=== PATIENT | male | born 1960 | race Caucasian/White ===

== ENCOUNTER 2020-05-26 11:41 | Outpatient (REF) | payer MEDICAID, SELFPAY ==
[2020-05-26 20:50] LABS: Abs Immature Grans 0.01 k/cumm (0.0-0.09); Absolute Basophil Count 0.04 k/cumm (0.0-0.2); Absolute Eosinophil Count 0.18 k/cumm (0.0-0.7); Absolute Lymphocyte Count 2.02 k/cumm (1.2-3.4); Absolute Monocyte Count 0.43 k/cumm (0.11-0.7); Absolute Neutrophil Count 3.19 k/cumm (1.2-6.7); Basophils % 0.7; Eosinophils % 3.1; HCT 45.4 % (40.0-50.0); Immature Grans % 0.2 %; Lymphocytes % 34.4; Mean Corp. HGB Concentration 35.2 g/dL (32.0-36.0); Mean Corpuscular Hemoglobin 31.5 pg (27.0-33.0); Mean Corpuscular Volume 89.4 fL (80-95); Mean Platelet Volume 10.4 fL (8.0-11.0); Monocytes % 7.3; Neutrophils % 54.3; Platelet Count 291 x1000/uL (130-400); RBC 5.08 m/cumm (4.50-6.00); RBC Distribution Width 12.6 % (11.8-14.1); White Blood Cell Count 5.87 k/cumm (4.4-10.8)
[2020-05-26 21:19] LABS: ALT 21 U/L (16-63); AST 14 U/L (15-37); Alkaline Phosphatase 86 U/L (46-116); Anion Gap 8.2 mmol/L (3-11); BUN 15 mg/dL (7-18); Bilirubin, Total 0.6 mg/dL (0.2-1.0); C-Reactive Protein 0.08 mg/dL (0.0-0.3); CO2 27.8 mmol/L (21.0-32.0); CREATININE 1.26 mg/dL (0.70-1.30); Calcium 8.9 mg/dL (8.5-10.1); Chloride 101 mmol/L (98-107); Creatine Kinase 53 U/L (39-308); Estimated GFR 58.38 (mL/min/1.73m2); Glucose 103 mg/dL (74-106); Potassium 3.8 mmol/L (3.5-5.1); Sodium 137 mmol/L (136-145); TSH 1.04 uIU/mL (0.36-3.74); Total Protein 7.1 g/dL (6.4-8.2)
[2020-05-26 21:36] LABS: ESR 5 mm/hr (1-20)
[2020-05-30 12:42] LABS: Lyme Ab w Rflx to Lyme Confirm Negative (Negative)
[2020-05-30 16:46] LABS: ANA Interpretation Negative (Negative)
[2020-05-31 03:13] LABS: Anaplasma phagocytophilum Negative (Negative); B. miyamotoi PCR Negative (Negative); Babesia divergens/MO-1 Negative (Negative); Babesia duncani Negative (Negative); Babesia microti Negative (Negative); Ehrlichia chaffeensis Negative (Negative); Ehrlichia ewingii/canis Negative (Negative); Ehrlichia muris eauclairensis Negative (Negative)
== END 2020-05-26 12:01 ==
LOC: NCHCN 11:41
PROVIDERS: PCP Internal Medicine; Visit Provider Internal Medicine
DX: M54.2 Cervicalgia (principal); A68.9 Relapsing fever, unspecified
CPT/HCPCS: 80053; 82550; 85652; 87798; 84443; 85025; 86038; 86140; 86618

== ENCOUNTER 2020-06-09 01:06 | Outpatient (RCR) | payer MEDICAID, SELFPAY ==
[2020-06-09] MEDS: Cosyntropin 0.25 MG VIAL IJ (07:17)
[2020-06-09 07:20] VITALS: BP 122/73; PULSE 54; RESP 20; TEMP 35.4; O2SAT 100
[2020-06-09] MEDS: Normal Saline Flush 10 ML SYR IVP (07:48)
== END 2020-07-01 23:59 | disposition home or self-care (01) ==
LOC: INF 01:06
PROVIDERS: PCP Internal Medicine; Visit Provider Internal Medicine
DX: R53.83 Other fatigue (principal)
CPT/HCPCS: 82533; 96374; 93005; 93010; J0834

== ENCOUNTER 2020-06-09 07:40 | Emergency (ER) | payer MEDICAID, SELFPAY ==
--- NOTE | 2020-06-09 07:30 | RT.EKG_ITS ---
APPROVED REPORT Exam: Resting ECG Patient Location: E HR:53 bpm ECG Measurements Heart Rate 53 AXIS WI 200 P 81 QRSd 103 QRS 78 QT 482 T 60 QTc 453 <Conclusion> Gender not entered, assumed to be male for purpose of ECG interpretation Sinus bradycardia...rate< 60. No acute ST elevation or depression.
[2020-06-09 07:45] VITALS: BP 142/80; PULSE 51; RESP 18; TEMP 36; O2SAT 100
[2020-06-09 07:50] VITALS: RESP 18
--- NOTE | 2020-06-09 08:00 | RT.EKG_ITS ---
APPROVED REPORT Exam: Resting ECG Patient Location: E HR:51 bpm ECG Measurements Heart Rate 51 AXIS MO 197 P 79 QRSd 97 QRS 81 QT 476 T 59 QTc 439 <Conclusion> Sinus bradycardia...rate< [address] elevation, lateral leads...ST >0.06mV, I aVL V5 V6. Appears c/w early repolarization in lateral leads. No significant acute change from previous.
--- NOTE | 2020-06-09 08:26 | W.ED.GENAD ---
Discharge Plan Disposition Patient Disposition: HOME Condition: Stable Discharge Details Chief Complaint: AMS/LOC Clinical Impression: Vasovagal episode Primary Care Provider: Markus Ascencio ED Provider: Brett Engle Home Meds and New Rx's Prescriptions: Continued diclofenac potassium 50 mg tablet 50 mg PO BID PRNRF: 0 triamcinolone acetonide 0.1 % cream 1 applic TP BID PRNRF: 0 epinephrine [EpiPen 2-Fred] 0.3 mg/0.3 mL auto-injector 0.3 mg IM ONCE RF: 0 valacyclovir [Valtrex] 500 mg tablet 1,000 mg PO BID PRNRF: 0 aspirin 325 MG tablet 325 mg PO PRN PRNRF: 0 clonazepam 1 MG tablet 1 mg PO PRN PRNRF: 0 vitamin B complex 1 EACH capsule 1 tab PO DAILY RF: 0 Discharge Instructions Instructions: Syncope (ED) Additional Instructions: At this time your symptoms are most likely secondary to a vasovagal episode. As we discussed full laboratory values, at baseline and 3-hour later or offered but at this time declined which I believe to be perfectly reasonable. After my conversation with Dr. Ascencio and then discussing options with you, CT of neck and head obtained here in the ER and both unremarkable. This note will be sent forward to Dr. Ascencio so that you may contact his office in the next 24-48 hours for prompt outpatient reevaluation. Please watch for new or worsening symptoms and return to the ER for any concerns. Medical Decision Making This is a 60-year-old gentleman who presents from the infusion clinic after having what he describes as a vasovagal episode. He reports many similar episodes, is currently asymptomatic. EKG obtained upon arrival, interpreted and reviewed with Dr. Joshi. This occurred at 802, sinus bradycardia, rate of 51. Early repolarization. Please see her note. Patient appears well, nontoxic and is neurologically intact. At this time we discussed our options and he would prefer not to have a full work-up here in the ER including troponin and repeat EKG and troponin III hours later. He believes this was a vasovagal response and believes that discharge is safe. Given his previous response with vasovagal episodes and being asymptomatic now I do believe this to be reasonable. I received a call from Dr. Ascencio stating that if we were going to further work-up the patient here in the ER he has been trying to get an outpatient soft tissue neck CT and if we can get that through the ER setting that would certainly help expedite the process. Discussed this conversation with patient. Although he does not want any laboratory values done at this time he is willing to have the CT. In the setting of vasovagal response, potential syncope, I believe head CT without contrast is reasonable and we will add on a neck CT with contrast after my discussion with Dr. Ascencio. Repeat EKG performed at [facility] reviewed and interpreted with Dr. Joshi. Sinus rhythm, ventricular of 64. No STEMI. Please see her interpretation. CT of head reveals no acute intracranial process. CT of neck with contrast reveals no acute abnormality. I will have my note sent forward to Dr. Ascencio. I discussed the CT findings with patient. He remains asymptomatic and is comfortable discharge. He will be in contact with Dr. Ascencio's office in the next 24-48 hours for prompt outpatient reevaluation, otherwise return to the ER for new or worsening symptoms. Upon discharge he is ambulating steadily, using iPad without difficulty, and remains asymptomatic. Of note, he did have his outpatient post cortisol lab draw completed here in the ER that will be followed as an outpatient. Medical Records Medical records reviewed: Yes I reviewed the patient's medical records. HPI General Date/Time Provider Initiated Documentation: 06/09/20 08:01. Limitations to Documentation: no limitations. Information obtained by: patient. HPI Narrative: This is a 60-year-old gentleman who is presenting from the infusion clinic after he describes as a vasovagal episode. He has a history of cardiomyopathy, syncope, neck pain, who was in the process of being worked up through his primary care provider. Today he was going to the infusion clinic to have an injection of cortisol, baseline labs, and then labs 1 hour later. Patient reports that after the IV was inserted he had a brief vasovagal episode. He was already sitting down and did not fall or have any injury. He reports upon waking he felt slightly diaphoretic but was otherwise asymptomatic, now here in the ER he is completely asymptomatic. He reports that he has had vasovagal episodes his entire life including when he has his blood drawn, IV insertion, looking at x-rays, and having his cast cut off when he had a broken bone. He reports this feels exactly the same and at this time he has no additional concerns or complaints. He denies any headache, visual changes, chest pain, shortness of breath abdominal pain, nausea, vomiting, numbness, tingling, weakness. He did not have any incontinence with this episode. Patient does report baseline neck pain that he is in the process of being worked up by his primary care provider. Patient denies any symptoms prior to his episode today. Related Data Home Medications Medication Instructions Recorded Confirmed aspirin 325 mg PO PRN PRN 03/24/17 06/09/20 clonazepam 1 mg PO PRN PRN 03/24/17 06/09/20 vitamin B complex 1 tab PO DAILY 03/24/17 06/09/20 diclofenac potassium 50 mg tablet 50 mg PO BID PRN 06/08/20 06/09/20 epinephrine 0.3 mg/0.3 mL 0.3 mg IM ONCE 06/08/20 06/09/20 injection, auto-injector triamcinolone acetonide 0.1 % 1 applic TP BID PRN 06/08/20 06/09/20 topical cream valacyclovir 500 mg tablet 1,000 mg PO BID PRN tab 06/08/20 06/09/20 Allergies Allergy/AdvReac Type Severity Reaction Status Date / Time latex AdvReac Unverified 06/09/20 07:52 General Stated Complaint: AMS/LOC GERMAN: 3 Review of Systems Constitutional Constitutional: Denies fatigue, Denies fever(s), Denies headache(s) and Denies weakness Eyes Eyes: Denies change in vision ENT Ears, Nose, Mouth, and Throat: Denies headache(s) and Reports neck pain Cardiovascular Cardiovascular: Denies chest pain and Denies dyspnea Respiratory Respiratory: Denies cough and Denies dyspnea Gastrointestinal Gastrointestinal: Denies abdominal pain, Denies nausea and Denies vomiting Musculoskeletal Musculoskeletal: Denies back pain, Denies arthralgias, Reports neck pain, Denies numbness and Denies tingling Integumentary/Breasts Skin/Breast: Denies rash Neurologic Neurologic: Denies headache(s), Denies numbness, Denies tingling and Denies weakness Endocrine Endocrine: Denies fatigue [facility] Medical History Actinic keratosis (Acute) Bipolar 2 disorder (Acute) Cardiomyopathy (Acute) Elevated blood pressure reading (Acute) Fatigue (Acute) Fever (Acute) Hallux rigidus (Acute) History of alcoholic hepatitis (Acute) Hx of syncope (Acute) Hyperlipidemia (Acute) Insomnia (Acute) Mitral valve regurgitation (Chronic) Myalgia (Acute) Neck pain, acute (Acute) Osteoarthritis (Chronic) Osteoarthritis of left knee (Acute) Osteoarthritis of left thumb (Acute) Osteoarthritis of right thumb (Acute) Preventative health care (Acute) Primary HSV infection of mouth (Acute) Surgical History S/P Maze operation for atrial fibrillation (Acute) Social History Smoking/Tobacco Use Status: Never Alcohol Intake: never Drug use: Never Substance use type: does not use Do you feel safe at home: Yes Do you feel safe in your relationship?: Yes Exam Const General: cooperative, healthy appearing, comfortable and no acute distress Orientation: alert, awake and oriented x3 HENMT Head: normal to inspection, normocephalic and atraumatic General nose exam: external nose normal Face and sinus: normal facial exam Mouth: oral mucosae normal and moist mucous membranes Throat: posterior oropharynx normal Eyes General: appearance normal, both eyes and all related structures Conjunctivae: conjunctivae normal Sclera: sclerae normal EOM: EOM intact bilaterally Neck Neck: normal visual inspection, full ROM, no lymphadenopathy, no meningeal signs, trachea midline, supple and tender (Diffuse mild left lateral discomfort) Resp Effort & Inspection: normal respiratory effort and able to speak in complete sentences Auscultation: clear to auscultation bilaterally Cardio Rate: regular rate Rhythm: regular rhythm GI Palpation: soft, not firm, no guarding, not rigid and nontender Auscultation: normal bowel sounds Back/Spine/Pelvis Back: No back tenderness Skin General skin exam: no rashes or lesions noted Neuro General: patient alert, patient awake, patient oriented x3, moves all extremities and no focal motor deficits Cranial Nerves: CN's II-XI intact bilaterally Cognition: normal cognition Speech: speech normal Gait: normal gait Motor: muscle tone normal throughout and strength 5/5 throughout Sensory Exam: no sensory deficits noted Extrem General: normal to inspection, full ROM, capillary refill normal, no pedal edema and no calf tenderness Psych Appearance: grossly normal Mental Status: mental status grossly normal Course Vital Signs Vital signs: Vital Signs Temperature 36 C L 06/09/20 07:45 Pulse 51 L 06/09/20 07:45 Respiratory Rate 18 06/09/20 07:45 Blood Pressure 142/80 H 06/09/20 07:45 Pulse Oximetry 100 06/09/20 07:45 Temperature 36 C L 06/09/20 07:45 Temperature Source Temporal Artery Scan 06/09/20 07:45 Pulse 51 L 06/09/20 07:45 Respiratory Rate 18 06/09/20 07:50 Respiratory Effort Non-Labored 06/09/20 07:50 Respiratory Depth Normal 06/09/20 07:50 Respiratory Pattern Normal 06/09/20 07:50 Blood Pressure 142/80 H 06/09/20 07:45 Blood Pressure Position Supine 06/09/20 07:45 Pulse Oximetry 100 06/09/20 07:45 Oxygen Delivery Method Room Air 06/09/20 07:45 Oxygen Flow Rate 0 06/09/20 07:45 Pain Level 0 06/09/20 07:45
--- NOTE | 2020-06-09 09:40 | DI.CT_ITS ---
EXAM: CT HEAD WO CLINICAL HISTORY: syncope, left sided pain/swelling. TECHNIQUE: Imaging Protocol: Axial computed tomography images with coronal and sagittal reformatted images were created and reviewed COMPARISON: No exams were available for comparison FINDINGS: Ventricles and Extra axial spaces: Normal in size and morphology for the patient's age. Hemorrhage: None. Cerebral parenchyma: Normal. Midline shift: None. Brainstem/Cerebellum: Normal. Calvarium: Normal. Visualized Paranasal sinuses/Mastoids: Clear. Soft Tissues: Unremarkable. IMPRESSION: No acute intracranial process. RADIATION DOSE DELIVERED: Total DLP DATA REPOSITORY: All CT scans at this facility are submitted to the National Radiology Data Registry (NRDR) Dose Index Registry (DIR) with the [employer] ([employer]). RADIATION OPTIMIZATION: All CT scans at this facility use at least one of these dose optimization te chniques: automated exposure control; mA and/or kV adjustment per patient size (includes targeted exa ms where dose is matched to clinical indication); or iterative reconstruction.
--- NOTE | 2020-06-09 09:52 | DI.CT_ITS ---
EXAM: CT NECK W CLINICAL HISTORY: pain, L sided swelling. TECHNIQUE: Imaging Protocol: Axial computed tomography images with coronal and sagittal reformatted images were created and reviewed CONTRAST MATERIAL: Intravenous: Omnipaque 350 Contrast volume:100 ml Contrast route:IV - COMPARISON: No exams were available for comparison FINDINGS: Parotids/submandibular/thyroid gland: Normal. Lymphadenopathy: No enlarged lymph nodes. Carotids/Jugular: There is mild calcific plaque seen at the left common carotid bulb. There is no v isible stenosis. Soft tissues: There is no evidence abscess or fluid collection. The floor the mouth is unremarkable. The epiglottis and vocal cords are within normal limits. Images through both lung apices are unremar kable. IMPRESSION: No acute abnormality. RADIATION DOSE DELIVERED: Total DLP DATA REPOSITORY: All CT scans at this facility are submitted to the National Radiology Data Registry (NRDR) Dose Index Registry (DIR) with the [employer] ([employer]). RADIATION OPTIMIZATION: All CT scans at this facility use at least one of these dose optimization te chniques: automated exposure control; mA and/or kV adjustment per patient size (includes targeted exa ms where dose is matched to clinical indication); or iterative reconstruction.
--- NOTE | 2020-06-09 10:00 | RT.EKG_ITS ---
APPROVED REPORT Exam: Resting ECG Patient Location: E HR:64 bpm ECG Measurements Heart Rate 64 AXIS AL 177 P 80 QRSd 97 QRS 84 QT 455 T 47 QTc 470 <Conclusion> Sinus rhythm...normal P axis, V-rate 60- 99 Probable left atrial enlargement...P >50mS, <-0.10mV V1 No acute ST ischemic changes.
[2020-06-09] MEDS: Omnipaque 350 MG/ML 100 ML BTL IV (10:08)
== END 2020-06-09 11:19 | disposition home or self-care (01) ==
PROVIDERS: Emergency Provider Physician Assistant; PCP Internal Medicine
DX: R55 Syncope and collapse (principal)
CPT/HCPCS: 70491; 87206; 93005; 99285; 70450; 93010; 99284; J3490

== ENCOUNTER 2020-07-04 00:39 | Outpatient (CLI) | payer MEDICAID, SELFPAY ==
--- NOTE | 2020-07-04 08:00 | ETT_ITS ---
APPROVED REPORT Exam: Exercise Treadmill Patient Location: Out-Patient Room/Bed: Stress Nurse: Naa Dietz RN BMI: 23.73 Baseline Rhythm: Sinus Rhythm Indications: Fatigue. History of cardiomyopathy. Medical History Medical History: Atrial Fibrillation, Cardiomyopathy, Hyperlipidemia, Mitral regurgitation Cardiac Medications: none Allergies: Latex Cardiac Risk Factors: Hyperlipidemia. Cardiomyopathy. Elevated blood pressure. Previous Cardiac Procedures: Cardioversion. Ablation. Exercise History: Physically active Lung Sounds: Clear to auscultation Heart Sounds: Regular Stress Test Details Test: Exercise stress testing was performed using a Jesús protocol. Rest Stress HR Resting HR Supine: 81 bpm Max Heart Rate (APMHR): 160 bpm Resting HR Standin bpm Target HR (85% APMHR): 136 bpm Max HR Achieved: 176 bpm % of APMHR: 110 Recovery HR: 90 bpm HR response to stress: Normal HR response to stress BP Resting BP Supine: 142/72 mmHg Resting BP Standin/76 mmHg Max BP: 188/62 mmHg Recovery BP: 148/68 mmHg BP response to stress: Normal blood pressure response to stress. ECG Resting ECG: Sinus Rhythm Stress ECG: Sinus Tachycardia ST Change: No significant ST segment changes Arrhythmia: rare PVC Recovery ECG: Sinus Rhythm Recovery ST Change: No significant ST segment changes Recovery Arrhythmia: None Clinical Reason for Termination: Fatigue, Target HR Achieved Stress Symptoms: General Fatigue Exercise duration: 13 min00 sec Highest Stage Reached: Stage 5: 5.0 mph at 18% grade. Exercise capacity: 14.15 METs Functional Capacity: Above average capacity Stress ECG Conclusion 1. The patient exercised for 13 minutes (14 METS) 2. Patient had no symptoms suggestive of ischemia. 3. The patient had no evidence of ischemia on the ECG portion of the exam. 4. The Gil Score ( 12) estimates an annual cardiovascular mortality of 0% and a five year survival o f 96%. Using the Gil Score there is a low probability of any angiographic coronary disease. Stress Test Summary STAGE Time (mins) Speed (mph) Grade (%) HR BP SYMPTOMS METS Supine 81 142/72 Standing 103 144/76 1 3 1.7 10 111 150/70 4.6 2 6 2.5 12 130 162/68 7 3 9 3.4 14 135 168/66 10.2 1 min recovery 145 188/62 3 min recovery 104 184/68 6 min recovery 96 156/70 9 min recovery 90 148/68
--- NOTE | 2020-08-05 09:23 | W.CARDEVENT ---
Date of service: 08/05/20 Time of Service: 09:23 Cardiac Event Recorder Referring Provider:: Jacobo Ascencio Indications:: Cardiomyopathy Cardiac Event Note: This is a 30-day event monitor reportedly ordered for diagnosis of cardiomyopathy. The patient was to be monitored from July 04 through August 02, 2020 Actual monitoring period was 5 days and 22 hours. There was no data after July 10 Predominant rhythm was sinus. Average heart rate was 69 bpm. Minimum heart rate was 53 and maximum 130 Rare PVCs were seen. There were no significant supraventricular dysrhythmias. There was no atrial fibrillation. There was no ventricular tachycardia there was no high-grade AV block
== END 2020-07-04 00:59 ==
PROVIDERS: PCP Internal Medicine; Visit Provider Internal Medicine
DX: R53.83 Other fatigue (principal); I48.91 Unspecified atrial fibrillation; I42.9 Cardiomyopathy, unspecified; E78.5 Hyperlipidemia, unspecified; I34.0 Nonrheumatic mitral (valve) insufficiency
CPT/HCPCS: 93270; 93017

== ENCOUNTER 2020-07-11 18:21 | Outpatient (REF) | payer MEDICAID, SELFPAY ==
[2020-07-11 21:03] LABS: Abs Immature Grans 0.01 10^3/uL (0.0-0.06); Absolute Basophil Count 0.09 10^3/uL (0.0-0.2); Absolute Lymphocyte Count 3.07 10^3/uL (1.2-3.4); Absolute Monocyte Count 0.61 10^3/uL (0.1-0.8); Absolute Neutrophil Count 3.97 10^3/uL (1.2-6.7); Basophils % 1.1; Eosinophils % 2.5; HCT 48.9 % (40.0-50.0); HGB 16.5 g/dL (13.5-17.5); Immature Grans % 0.1; Lymphocytes % 38.6; MCH 31.3 pg (27.0-33.0); MCHC 33.7 % (32.0-36.0); MCV 92.8 fL (80-95); MPV 10.2 fL (8.0-11.0); Monocytes % 7.7; Nucleated RBC 0 %; Platelet Count 344 10^3/uL (130-400); RBC 5.27 10^6/uL (4.36-5.78); RDW 12.9 % (11.8-14.1); WBC 7.95 10^3/uL (4.4-10.8)
[2020-07-11 21:15] LABS: ALT 22 U/L (16-63); AST 16 U/L (15-37); Albumin 4.1 g/dL (3.4-5.0); Alkaline Phosphatase 97 U/L (46-116); Anion Gap 7.5 mmol/L (3-11); BUN 12 mg/dL (7-18); Bilirubin, Total 0.7 mg/dL (0.2-1.0); CO2 29.5 mmol/L (21.0-32.0); CREATININE 0.99 mg/dL (0.70-1.30); Calcium 9.4 mg/dL (8.5-10.1); Chloride 101 mmol/L (98-107); Glucose 98 mg/dL (74-106); Potassium 4.7 mmol/L (3.5-5.1); Sodium 138 mmol/L (136-145); Total Protein 7.5 g/dL (6.4-8.2)
[2020-07-13 10:30] LABS: Lyme Ab w Rflx to Lyme Confirm Negative (Negative)
== END 2020-07-11 18:41 ==
LOC: NCHCN 18:21
PROVIDERS: PCP Internal Medicine; Visit Provider Internal Medicine
DX: R59.1 Generalized enlarged lymph nodes (principal); R53.83 Other fatigue; M79.10 Myalgia, unspecified site
CPT/HCPCS: 80053; 85025; 86618

== ENCOUNTER 2020-10-26 14:08 | Outpatient (REF) | payer MEDICAID, SELFPAY ==
[2020-10-26 21:42] LABS: Abs Immature Grans 0.03 10^3/uL (0.0-0.06); Absolute Basophil Count 0.07 10^3/uL (0.0-0.2); Absolute Eosinophil Count 0.16 10^3/uL (0.0-0.7); Absolute Lymphocyte Count 2.71 10^3/uL (1.2-3.4); Absolute Monocyte Count 0.64 10^3/uL (0.1-0.8); Absolute Neutrophil Count 5.33 10^3/uL (1.2-6.7); Basophils % 0.8; Eosinophils % 1.8; HCT 52.3 % (40.0-50.0); HGB 17.5 g/dL (13.5-17.5); Immature Grans % 0.3; Lymphocytes % 30.3; MCH 31.5 pg (27.0-33.0); MCHC 33.5 % (32.0-36.0); MCV 94.1 fL (80-95); MPV 10.2 fL (8.0-11.0); Monocytes % 7.2; Neutrophils % 59.6; Nucleated RBC 0 %; Platelet Count 366 10^3/uL (130-400); RBC 5.56 10^6/uL (4.36-5.78); RDW 12.5 % (11.8-14.1); RDW-SD 43.6 fL; WBC 8.94 10^3/uL (4.4-10.8)
[2020-10-26 21:48] LABS: C-Reactive Protein 0.09 mg/dL (0.0-0.3)
[2020-10-26 23:48] LABS: ESR 5 mm/hr (1-20)
== END 2020-10-26 14:28 ==
LOC: NCHCN 14:08
PROVIDERS: PCP Internal Medicine; Visit Provider Internal Medicine
DX: R51.9 Headache, unspecified (principal)
CPT/HCPCS: 85652; 85025; 86140

== ENCOUNTER 2021-11-05 07:24 | Emergency (ER) | payer MEDICAID, SELFPAY ==
--- NOTE | 2021-11-05 07:30 | RT.EKG_ITS ---
APPROVED REPORT Exam: Resting ECG Reason for Exam: syncope Patient Location: E HR:70 bpm ECG Measurements Heart Rate 70 AXIS AR 175 P 60 QRSd 86 QRS 77 QT 391 T 66 QTc 422 Conclusion Sinus rhythm...normal P axis, V-rate 60- 99 Anteroseptal infarct, age indeterminate...Q >35mS, T neg, V1-V2. Sinus. No STEMI. I have reviewed and interpreted ECG and agree with software generated interpretation.
[2021-11-05 07:32] VITALS: BP 152/80; PULSE 74; RESP 16; TEMP 37.6; O2SAT 99
--- NOTE | 2021-11-05 08:36 | W.ED.GENAD ---
Discharge Plan Disposition Patient Disposition: AGAINST MEDICAL ADVICE Condition: Stable Discharge Details Clinical Impression: Right knee pain, Episode of syncope Primary Care Provider: Markus Ascencio ED Provider: Milla Joshi Home Meds and New Rx's Prescriptions: Continued melatonin 3 mg tablet 3 mg PO HS PRNRF: 0 diclofenac potassium 50 mg tablet 50 mg PO BID PRNRF: 0 triamcinolone acetonide 0.1 % cream 1 applic TP BID PRNRF: 0 valacyclovir [Valtrex] 500 mg tablet 1,000 mg PO BID PRNRF: 0 clonazepam 1 MG tablet 1 mg PO PRN PRNRF: 0 vitamin B complex 1 EACH capsule 1 tab PO DAILY RF: 0 acetaminophen 500 mg Tablet 1,000 mg PO QID PRNRF: 0 Discharge Instructions Instructions: Syncope (ED), Knee Pain (ED) Additional Instructions: You are leaving the hospital AGAINST MEDICAL ADVICE. Based on your fainting episode, it is recommended that we obtain lab work and imaging of your head to rule out any significant abnormal findings. Drink plenty of fluids and get plenty of rest. It is recommended that you rest, ice, and elevate your right knee as much as possible. You can try an [id number] Avila wrap or knee brace to help with swelling. Alternate tylenol and motrin as needed and directed for pain. Follow-up with your primary care doctor in 1 week and for referral to orthopedics for further evaluation if your knee pain persists or worsens despite treatment. Return to the emergency department with any worsening or new concerning symptoms. Referrals: Elias Miguel MD [ [facility] STAFF PHYSICIAN] - Discharge Data Discharge Physician: Milla Joshi Medical Decision Making 61-year-old male with a history of bipolar disorder, hyperlipidemia and history of vasovagal syncope presents for syncopal episode while getting out of the bath 2 days ago now with right knee pain since yesterday. He is also complaining of pain and weakness all over. He also admits to a head injury a few days ago when hit his head on a tractor. Blood pressure mildly hypertensive at 152/80. EKG notes a rate of 70, sinus, no STEMI and nondiagnostic. He appears anxious. He has a right suprapatellar knee effusion and pain with range of motion. He is otherwise neurovascularly intact without orthopedic deformity. He has no focal deficits. Discussed with patient at length that it is suspected his syncopal episode 2 days ago is likely related to orthostatic hypotension in setting of hot bath worsened upon standing. Suspect he may have twisted his knee during the syncopal episode. Recommended that we place an IV, give bolus IV fluids, obtain screening labs to rule out anemia, CT head to rule out intracranial injury status post recent head injury, right knee x-ray and give a dose of tylenol, valium and decadron now and toradol for pain if CT head negative. After my discussion regarding plan for work-up, patient shook his head and said You and your non sequiturs and You are not getting it. I do not know why I came here, you have no idea what you are doing and The neurologists at [facility] don't know what they're doing either. I discussed that based on his recent syncopal episode and our goal in the emergency department to rule out the most concerning life-threatening conditions, it is recommended that we obtain lab work and potentially CT head imaging due to his recent head injury. Patient stated he mainly wanted his pain treated. I discussed that that was part of my treatment plan but he then declined pain medication. He stated Don't patronize me and I will go to another hospital and You did your job, congratulations. Pt was also asked to place his mask back on twice and stated twice but I'm vaccinated. Despite our efforts, the patient has decided to leave against medical advice. He has a normal mental status and full decisional capacity. The patient understands his condition and the risks of leaving MAY, including BUT NOT LIMITED TO permanent disability, , etc., and has had an opportunity to ask questions about his medical condition. The patient has been informed that he may return for care at any time, and has been referred to his local medical physician for follow up GUMARO. Patient was offered pain medication again prior to his leaving but he declined again. Upon leaving, pt's stated to the nurse mar about how pigheaded my is and tell the doctor thank you for trying to treat him. Medical Records Medical records reviewed: Yes I reviewed the patient's medical records. HPI General Mode of arrival: ambulatory. Date/Time Provider Initiated Documentation: 11/05/21 07:35. Limitations to Documentation: no limitations. Information obtained by: patient. HPI Narrative: Patient is a 51-year-old male with a history of bipolar disorder, hyperlipidemia, previous history of alcoholic hepatitis, and previous history of vasovagal syncopal episodes presents for a report of a syncopal episode 2 days ago while getting out of a hot bath now with right knee pain since yesterday. Patient states he was in a hot bath 2 days ago when he was stepping out and felt dizzy and passed out. He states he does not think he hit his head but for the next hour had dizziness, sweating, feeling of palpitations which then resolved with rest. He denies any chest pain or shortness of breath during this episode. He states since yesterday he has had right-sided knee pain which radiates to his right thigh. He denies any specific right hip pain. He states he is unsure if he hit his knee. He has clonazepam that he takes as needed for anxiety and took 2 doses overnight without relief. Patient also states that he feels that he has pain all over and feels there is something wrong neurologically. Patient states he has chronic neck pain and occasional headache for which he is followed by [facility] neurology with a diagnosis of suboccipital neuralgia. He states he hit his head on a tractor a few days ago sustaining an abrasion to the top of his head but denies any specific headache since then. Patient denies any recent illness, fever, vomiting, diarrhea, abdominal pain or urinary symptoms and states he has been eating and drinking normally. He denies any recent alcohol or drug use. Related Data Home Medications Medication Instructions Recorded Confirmed clonazepam 1 mg PO PRN PRN 03/24/17 11/05/21 vitamin B complex 1 tab PO DAILY 03/24/17 11/05/21 diclofenac potassium 50 mg tablet 50 mg PO BID PRN 06/08/20 11/05/21 triamcinolone acetonide 0.1 % 1 applic TP BID PRN 06/08/20 11/05/21 topical cream valacyclovir 500 mg tablet 1,000 mg PO BID PRN tab 06/08/20 11/05/21 melatonin 3 mg tablet 3 mg PO HS PRN 06/20/20 11/05/21 acetaminophen 1,000 mg PO QID PRN 11/05/21 11/05/21 Allergies Allergy/AdvReac Type Severity Reaction Status Date / Time latex AdvReac Unverified 11/05/21 07:36 General Stated Complaint: GenMedical GERMAN: 3 Review of Systems All systems reviewed & are unremarkable except as noted in HPI and below Constitutional Constitutional: Reports as per HPI, Denies chills, Denies fever(s) and Reports weakness Comments: pain all over Eyes Eyes: Denies blurry vision ENT Ears, Nose, Mouth, and Throat: Denies dizziness, Denies sore throat and Denies throat swelling Cardiovascular Cardiovascular: Denies chest pain and Denies dyspnea Respiratory Respiratory: Denies cough and Denies dyspnea Gastrointestinal Gastrointestinal: Denies abdominal pain, Denies diarrhea and Denies vomiting Genitourinary Genitourinary: Denies hematuria and Denies dysuria Musculoskeletal Musculoskeletal: Denies back pain and Denies numbness Comments: Right thigh and knee pain Integumentary/Breasts Skin/Breast: Denies lesions and Denies rash Neurologic Neurologic: Denies dizziness, Denies localized weakness, Denies numbness and Reports weakness Allergic/Immunologic Allergic/Immunologic: Denies throat swelling PFS Active Problem List (Updated 11/05/21 @ 08:38 by Milla Joshi DO) Right knee pain (Acute) Episode of syncope (Chronic) Neck pain (Acute) Fatigue (Acute) Syncope (Chronic) Medical History (Updated 11/05/21 @ 08:38 by Milla Joshi DO) Actinic keratosis Bipolar 2 disorder Cardiomyopathy Elevated blood pressure reading Hallux rigidus History of alcoholic hepatitis Hx of syncope Hyperlipidemia Insomnia Mitral valve regurgitation Osteoarthritis Osteoarthritis of left knee Osteoarthritis of left thumb Osteoarthritis of right thumb Primary HSV infection of mouth Surgical History H/O toe surgery S/P knee surgery S/P Maze operation for atrial fibrillation x2 Family History Other Cancer Social History Smoking/Tobacco Use Status: Never Smoking risk assessment performed?: Yes Alcohol Intake: never Drug use: Never Substance use type: does not use Household members: significant other Housing: house Number of Children: 0 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 What is your relationship status?: Panel score (0-1 are the most socially isolated patients): 1 Seatbelt use: always Do you feel safe at home: Yes Do you feel safe in your relationship?: Yes Exam Const General: cooperative, healthy appearing and no acute distress HENMT Head: normal to inspection Face and sinus: normal facial exam Eyes General: appearance normal, both eyes and all related structures Pupils: PERRL EOM: EOM intact bilaterally Neck Neck: normal visual inspection and No submandibular swelling Lymphatic: no lymphadenopathy noted Chest Chest: normal inspection of the chest and no tenderness Resp Effort & Inspection: normal respiratory effort and able to speak in complete sentences Auscultation: clear to auscultation bilaterally Cardio Rate: regular rate Rhythm: regular rhythm GI Inspection: normal to inspection Palpation: soft, not firm, not rigid and nontender Auscultation: normal bowel sounds Back/Spine/Pelvis Cervical Spine: No cervical spinal tenderness Thoracic/Lumbar Spine: thoracic and lumbar spine normal to inspection, No thoracic spinal tenderness and No lumbar spinal tenderness Pelvis: no pain with anterior-posterior compression Skin General skin exam: no rashes or lesions noted Neuro General: patient alert, patient awake and patient oriented x3 Cognition: normal cognition Speech: speech normal Motor: muscle tone normal throughout Sensory Exam: no sensory deficits noted Extrem General: no calf tenderness bilaterally and no edema Knee images: 1. Right suprapateller edema Psych Appearance: grossly normal Mental Status: mental status grossly normal Speech and Movement: speech and movement normal Affect: normal affect Course Vital Signs Vital signs: Vital Signs Temperature 99.6 F 11/05/21 07:32 Pulse 74 11/05/21 07:32 Respiratory Rate 16 11/05/21 07:32 Blood Pressure 152/80 H 11/05/21 07:32 Pulse Oximetry 99 11/05/21 07:32 Temperature 99.6 F 11/05/21 07:32 Temperature Source Temporal Artery Scan 11/05/21 07:32 Pulse 74 11/05/21 07:32 Respiratory Rate 16 11/05/21 07:32 Respiratory Effort Non-Labored 11/05/21 07:34 Blood Pressure 152/80 H 11/05/21 07:32 Blood Pressure Position Sitting 11/05/21 07:32 Pulse Oximetry 99 11/05/21 07:32 Oxygen Delivery Method Room Air 11/05/21 07:32 Oxygen Flow Rate 0 11/05/21 07:32 Pain Level 8 11/05/21 07:32
== END 2021-11-05 08:51 | disposition left against medical advice (07) ==
PROVIDERS: Emergency Provider Physician Assistant; PCP Internal Medicine
DX: M25.561 Pain in right knee (principal); R55 Syncope and collapse; Z53.29 Procedure and treatment not carried out because of patient's decision for other reasons
CPT/HCPCS: 93005; 99283; 93010; 99282

== ENCOUNTER 2022-04-11 14:44 | Outpatient (REF) | payer MEDICAID, SELFPAY ==
[2022-04-11 22:43] LABS: ALT 22 U/L (16-63); AST 14 U/L (15-37); Albumin 4.1 g/dL (3.4-5.0); Alkaline Phosphatase 90 U/L (46-116); Anion Gap 9.2 mmol/L (3-11); BUN 16 mg/dL (7-18); Bilirubin, Total 0.9 mg/dL (0.2-1.0); CO2 26.8 mmol/L (21.0-32.0); CREATININE 0.9 mg/dL (0.70-1.30); Calcium 8.9 mg/dL (8.5-10.1); Calculated LDL 305 mg/dL (<100); Chloride 106 mmol/L (98-107); Cholesterol 412 mg/dL (<200); Glucose 84 mg/dL (74-106); HDL Cholesterol 88 mg/dL (40-60); Potassium 5.1 mmol/L (3.5-5.1); Sodium 142 mmol/L (136-145); Total Protein 7.4 g/dL (6.4-8.2); Triglyceride 99 mg/dL (<150)
== END 2022-04-11 14:45 | disposition home or self-care (01) ==
LOC: NCHCN 14:44
PROVIDERS: PCP Internal Medicine; Visit Provider Family Medicine
DX: E78.5 Hyperlipidemia, unspecified (principal); R51.9 Headache, unspecified
CPT/HCPCS: 80053; 80061

== ENCOUNTER 2022-06-11 16:14 | Outpatient (REF) | payer MEDICAID, SELFPAY ==
[2022-06-11 15:23] LABS: ALT 19 U/L (16-63); AST 20 U/L (15-37); Calculated LDL 248 mg/dL (<100); Cholesterol 352 mg/dL (<200); HDL Cholesterol 90 mg/dL (40-60); Triglyceride 73 mg/dL (<150)
--- OUTSIDE RECORDS SUMMARY | 2022-06-11 16:17 | XMS_ITS | Clinical Summary ---
:1960 Author Organization [place] [address] Care Team Providers Name Role Phone Markus Ascencio MD Primary Care Provider Allergies No known active allergies Medications Medication Sig Dispensed Refills Start Date End Date Status clonazePAM Take 1 mg by mouth as 0 04/22/2017 Active (KLONOPIN) 1 mg needed. Tablet diclofenac Take 50 mg by mouth 0 04/22/2017 Active (CATAFLAM) 50 mg daily. Tablet valACYclovir Take 500 mg by mouth 0 09/15/2018 Active (VALTREX) 500 mg as needed. Tablet galcanezumab-gnlm Inject 1 mL 1 mL 11 03/12/2022 Active (Emgality Syringe) subcutaneously every 120 mg/mL 30 days. SyringeIndications: Chronic migraine without aura, with intractable migraine, so stated, with status migrainosus Active Problems Problem Noted Date Cervical spondylosis 10/13/2020 Cervicogenic headache 10/10/2020 Overview: Added automatically from request for alvarez salcedo [id number] Neck pain 09/19/2020 Hallux rigidus of right foot 11/11/2018 S/P Left cartiva for hallux rigidus 08/08/2017 Dr. Burns 0 04/23/2017 Atrial fibrillation 04/09/2017 Overview: History of ablation attempt x 2 [facility] Cardiomyopathy 04/09/2017 Overview: Per [facility] referral, based possibly on nuc lear stress test (details unknown) Atypical chest pain 04/09/2017 Bipolar II disorder 04/09/2017 Anxiety 04/09/2017 Bilateral foot pain 12/18/2016 Encounters Date Type Specialty Care Team Description 04/02/2022 Telephone [facility] and Spine [facility] 03/27/2022 Office Visit Pain and Spine Asad Hurtado, Cervicog enic headache; Center Cervical luis coates 03/26/2022 Hospital Encounter Radiology Ayush Warner Cancel ed (D-LARS Mccoy MD LATE/NOT SEEN) 03/21/2022 Telephone Neurology Candi Sanchez M, AVIONICS SAFETY INSPECTOR 03/19/2022 Hospital Encounter Radiology Behzad, Bilateral hand pain; Karan Fair Jr., MD Neck pain 03/19/2022 Orders Only Neurology Ayush Warner Chronic migr jorge Mccoy MD without aura, w ith intractable kati manny, so stated, with status migraino [place] 03/16/2022 Telephone Neurology Elio, Mary Diez MD 03/14/20[facility] 03/13/2022 Specialty Pharmacy Pharmacy X[facility] Hope Prior Aut horization (Emgality 240mg /2mL SOSY) 03/12/2022 Office Visit Neurology Ayush Warner Chronic migr jorge without aura, with intractable migraine, so stated, with status migrainosus; MD Nadine Abnormal MRA, b rain from Last 3 Months Immunizations Name Administration Dates Next Due Moderna Covid-19 (Stud Master/Mistress 100mcg) Vaccine 11/17/2021, 2020, 03/14/2021 Family History Medical History Relation Comments Cancer Mother Breast cancer Migraines Mother Relation Status Comments Mother Social History Tobacco Use Types Packs/Day Years Used Date Never Smoker Smokeless Tobacco: Never Used Alcohol Use Standard Drinks/Week Comments Yes 0 (1 standard drink = 0.6 oz pure alcoho l) once in a while Alcohol Habits Answer Date Recorded How often do you have a drink containing alcohol? Not asked How many drinks containing alcohol do you have on a Not aske d typical day when you are drinking? How often do you have six or more drinks on one Not asked occasion? Comment: once in a while 09/24/2017 Sex Assigned at Date Recorded Unknown 08/14/2021 2:22 PM EDT Last Filed Vital Signs Vital Sign Reading Time Taken Comments Blood Pressure 152/75 03/27/2022 1:03 PM EDT Pulse 66 03/27/2022 1:03 PM EDT Temperature 36.8 ??C (98.2 ??F) 10/07/2020 3:47 PM EST Respiratory Rate 18 10/13/2020 9:40 AM EST Oxygen Saturation 99% 08/15/2021 2:39 PM EDT Inhaled Oxygen Concentration - - Weight 74.8 kg (165 lb) 03/27/2022 1:03 PM EDT Height 182.9 cm (6') 03/27/2022 1:03 PM EDT Body Mass Index 22.38 03/27/2022 1:03 PM EDT Plan of Treatment Upcoming Encounters Date Type Specialty Care Team Description 07/02/2022 Office Visit Neurology Candi Sanchez, AVIONICS SAFETY INSPECTOR [facility] [address] [place] [place] [address] (Wo rk) Health Maintenance Due Date Last Done Comments Pneumococcal Vaccine: At-Risk 5-64yrs 1966 (1 - PCV) HIV screen 1978 Hepatitis C Screening 1978 Lipid Screening 1978 Tdap adult 1979 Tetanus vaccine 1979 Colonoscopy 2005 Zoster vaccine (1 of 2) 2010 Covid-19 Vaccine (4 - Booster for 03/18/2022 11/17/2021, , Moderna series) 03/14/2021 Influenza (Flu) vaccine (1 of 1 - 08/02/2022 Influenza standard series) Medical Devices Implanted Type Area Drilling Field Operator Device Shelf Model / Identifier Expiration Date Ser ial / Lot Cartiva Synthetic Cartilage Implant Left: Toe CAR-10-US / Implanted: Qty: 1 on 08/08/2017 by Grabiel Burns MD at [facility] / [id number] Procedures Procedure Name Priority Date/Time Associated Diagnosis Comme nts MRI CERVICAL SPINE Routine 03/19/2022 2:47 PM Bilateral hand pain Results for this WO CONTRAST EDT Neck pain procedure are i n the results section. from Last 3 Months Results MRI Cervical Spine wo Contrast (Generic) (03/19/2022 2:47 PM EDT) Anatomical Region Laterality Modality C-spine Magnetic Resonance Specimen (Source) Anatomical Location Collection Method / Collectio n Time Received Time / Laterality Volume Impressions 03/19/2022 5:03 PM EDT Multilevel moderate to severe neural for aminal stenoses, and moderate canal stenosis at C5/6. No definite cord signa l abnormality. No significant change. Thank you for letting us participate in the care of this patient. ??If you are a health care provider and have any questi ons regarding this report, please contact the number below. ??For patients who have questions please contact the health care transport nurse that requested your imaging first. ? Electronically signed by: Karen Cameron MD, [facility] ([phone]), at 03/19/2022 5:03 PM Narrative 03/19/2022 5:03 PM EDT EXAMINATION: MRI CERVICAL SPINE WO CONTRAST (GENERIC) CLINICAL HISTORY: Neck pain, chronic; Ce rvical radiculopathy TECHNIQUE: MRI of the cervical spine performed with out intravenous contrast administration. COMPARISON: MRI cervical spine July 23, 2020. MRI brain October 05, 2020. FINDINGS: Foramen magnum is patent. Prevertebral s oft tissues are within normal limits. A partially visible at T2 hyperintense les ion at the right dorsal medulla is grossly stable. No abnormal spinal cord signal. Trace anterolisthesis C3 on C4, trace re trolisthesis of C4 on C5, C5 on C6 and C6 on C7, stable. Disc space narrowing a nd discogenic endplate fatty marrow change and edema greatest from C4/5 thro ugh C6/7, as before. C2/3: Minimal disc/osteophyte. Left grea ter than right facet arthropathy, moderate left neural foraminal stenosis. No significant canal or right foraminal stenosis. Stable. C3/4: Disc space narrowing, disc/osteoph yte and uncovertebral hypertrophy eccentric to the left, bilateral degener ative facet arthropathy. Severe left and mild right neural foraminal stenosis, mi ld canal stenosis, stable. C4/5: Disc space narrowing, retrolisthes is of C4 on C5 with osteophytic ridging and left greater than right uncovertebra l hypertrophy. Mild canal stenosis, eccentric to the left. Left greater than right degenerative facet arthropathy. Severe, left greater than right neural f oraminal stenosis. Not significantly changed. C5/6: Disc space narrowing, retrolisthes is C5 on C6, disc/osteophyte and bilateral uncovertebral hypertrophy. Guy ateral facet arthropathy. Severe right and moderate to severe left neural rupinder inal stenosis, moderate canal stenosis with contact of the ventral spinal cord, similar to the prior examination. C6/7, and minimal retrolisthesis of C6 o n C7, osteophytic ridging and bilateral uncovertebral hypertrophy. Bilateral fac et arthropathy. Mild canal stenosis, severe bilateral neural foraminal stenos is, stable. Procedure Note Karen Cameron MD - 03/19/2022Formatt ing of this note might be different from the original. EXAMINATION: MRI CERVICAL SPINE WO CONTR AST (GENERIC) CLINICAL HISTORY: Neck pain, chronic; Ce rvical radiculopathy TECHNIQUE: MRI of the cervical spine performed with out intravenous contrast administration. COMPARISON: MRI cervical spine July 23, 2020. MRI brain October 05, 2020. FINDINGS: Foramen magnum is patent. Prevertebral s oft tissues are within normal limits. A partially visible at T2 hyperintense les ion at the right dorsal medulla is grossly stable. No abnormal spinal cord signal. Trace anterolisthesis C3 on C4, trace re trolisthesis of C4 on C5, C5 on C6 and C6 on C7, stable. Disc space narrowing a nd discogenic endplate fatty marrow change and edema greatest from C4/5 thro ugh C6/7, as before. C2/3: Minimal disc/osteophyte. Left grea ter than right facet arthropathy, moderate left neural foraminal stenosis. No significant canal or right foraminal stenosis. Stable. C3/4: Disc space narrowing, disc/osteoph yte and uncovertebral hypertrophy eccentric to the left, bilateral degener ative facet arthropathy. Severe left and mild right neural foraminal stenosis, mi ld canal stenosis, stable. C4/5: Disc space narrowing, retrolisthes is of C4 on C5 with osteophytic ridging and left greater than right uncovertebra l hypertrophy. Mild canal stenosis, eccentric to the left. Left greater than right degenerative facet arthropathy. Severe, left greater than right neural f oraminal stenosis. Not significantly changed. C5/6: Disc space narrowing, retrolisthes is C5 on C6, disc/osteophyte and bilateral uncovertebral hypertrophy. Guy ateral facet arthropathy. Severe right and moderate to severe left neural rupinder inal stenosis, moderate canal stenosis with contact of the ventral spinal cord, similar to the prior examination. C6/7, and minimal retrolisthesis of C6 o n C7, osteophytic ridging and bilateral uncovertebral hypertrophy. Bilateral fac et arthropathy. Mild canal stenosis, severe bilateral neural foraminal stenos is, stable. IMPRESSION Multilevel moderate to severe neural for aminal stenoses, and moderate canal stenosis at C5/6. No definite cord signa l abnormality. No significant change. Thank you for letting us participate in the care of this patient. If you are a health care provider and have any questi ons regarding this report, please contact the number below. For patients w ho have questions please contact the health care transport nurse that requested your imaging first. Electronically signed by: Karen Cameron MD, [facility] ([phone]), at 03/19/2022 5:03 PM Karan Wen Jr., MD IMG MRI ORDERABLES from Last 3 Months Insurance Payer Benefit Plan / Subscriber ID Effective Dates Phone Addre ss Type Group MEDICAID PR [place]ICAID [place] [id number] 2016-Pres [phone] [address] PRIMARY CARE ent [address] [place], [place] [phone] Advance Directives Documents on File Type Date Recorded Patient Epidemiology Internship Explanati on Advance Directives and Living 06/26/2017 3:15 PM 03/13/15 Will Latest Code Status on File Code Status Date Activated Date Inactivated Comments Full Code 08/08/2017 6:28 AM 08/08/2017 12:54 PM Does patient have capacity to make decision: Yes Care Teams Telesales Supervisor Relationship Specialty Start Date End Date Markus Ascencio MD PCP - General Internal Medicine 04/09/17 [address] [place] [address]
--- OUTSIDE RECORDS SUMMARY | 2022-06-11 16:17 | XMS_ITS | Encounter Summary ---
:1960 Author Organization [facility] [place] [address] Care Team Providers Name Role Phone Markus Ascencio MD Primary Care Provider Encounter Details Date Type Department Care Team Description 04/02/2022 Telephone Pain and Spine Reji argueta at [facility] Nereida Te[facility] [place] [phone] Social History Tobacco Use Types Packs/Day Years [...] Date Recorded Unknown 08/14/2021 2:22 PM EDT documented as of this encounter Miscellaneous Notes Telephone Encounter - Nereida Tejada - 04/02/2022 8:15 AM EDT 04/02/2022 [place] [facility] for patient to call back and reschedule per [facility] . documented in this encounter Plan of Treatment Upcoming Encounters Date Type Specialty Care Team Description 07/02/2022 Office Visit Neurology Candi Sanchez, GAS DISTRIBUTION PLANT OPERATOR [facility] [address] [place] [address] (Wo rk) documented as of this encounter Visit Diagnoses Not on filedocumented in this encounter Care Teams Mass Spectrometry Specialist Relationship Specialty Start Date End Date Markus Ascencio MD PCP - General Internal Medicine 04/09/17 [address] [place] [address] documented as of this encounter
--- OUTSIDE RECORDS SUMMARY | 2022-06-11 16:18 | XMS_ITS | Encounter Summary ---
:1960 Author Organization [employer] [place] [address] Care Team Providers Name Role Phone Markus Ascencio MD Primary Care Provider Reason for Referral Diagnostic Test (Routine) - Closed Specialty Diagnoses / Procedures Referred By Contact Refer red To Contact Radiology Diagnoses Bilateral hand pain Neck pain Karan Wen [facility] Rad Mri Procedures MRI Cervical Spine rio Estevez (Generic) [place] [address] [place] [address] Referral ID Status Reason Start Date Expiration Date Visits V isits Requested Authorized [id number] Closed Specialty 12/04/2021 06/03/2023 1 1 Service Requested Encounter Details Date Type Department Care Team Description 12/04/2021 Telephone Orthopaedics at [facility] Karan Wen [facility] Marv perez Jr., [place] [address] [facility] [phone] ORTHOPAEDIC SURG [place], [place] [address] (Wo rk) Social History Tobacco Use Types Packs/Day Years [...] this encounter Miscellaneous Notes Telephone Encounter - Chloe Sandhu W - 12/04/2021 11:17 AM EST Order(s) pended for review and signature. Open encounter to sign orders. documented in this encounter Plan of Treatment Upcoming Encounters Date Type Specialty Care Team Description 07/02/2022 Office Visit Neurology Candi Sanchez, CIGARETTE LIGHTER REPAIRER [facility] [address] [place], [place] [address] (Wo rk) documented as of this encounter Results MRI Cervical Spine wo Contrast (Generic) [...] who have questions please contact the health acute care clinical nurse specialist that requested your imaging first. ? Electronically signed by: Karen Cameron MD, [facility] ([phone]), at 03/19/2022 5:03 PM Narrative 03/19/2022 5:03 [...] ho have questions please contact the health acute care clinical nurse specialist that requested your imaging first. Karan Wen Jr., MD IMG MRI ORDERABLES documented in this encounter Visit Diagnoses Diagnosis Bilateral hand pain Pain in limb Neck pain Cervicalgia Bilateral hand pain Pain in limb Neck pain Cervicalgia documented in this encounter Care Teams Acute Dialysis Registered Nurse Relationship Specialty Start Date End Date Markus Ascencio MD PCP - General Internal Medicine 04/09/17 [address] [place] [address] documented as of this encounter
--- OUTSIDE RECORDS SUMMARY | 2022-06-11 16:18 | XMS_ITS | Encounter Summary ---
:1960 Author Organization [facility] [place] [address] Care Team Providers Name Role Phone Markus Ascencio MD Primary Care Provider Reason for Referral Consultation (Routine) - Closed Specialty Diagnoses / Procedures Referred By Contact Refer red To Contact Pain and Spine Center Diagnoses Cervicogenic headache Cervical spondylosis Asad Hurtado MD Ge, MD [facility] [address] [facility] [place] [address] Fax: Referral ID Status Reason Start Expiration Visits Visits Date Date Requested Authorized [id number] Closed Pain 03/27/2022 03/27/2023 12 12 Interventional Procedure hysical Therapy (Routine) - Closed Specialty Diagnoses / Procedures Referred By Contact Refer red To Contact Physical Therapy Diagnoses Cervicogenic headache Cervical spondylosis Asad Hurtado MD Physical Therapy, [facility] [address] [address] Phone: Fax: Referral ID Status Reason Start Date Expiration Date Visits V isits Requested Authorized [id number] Closed Evaluate and 03/27/2022 09/23/2022 12 12 Treat Reason for Visit Reason Comments Neck Pain Consultation (Routine) - Closed Specialty Diagnoses / Procedures Referred By Contact Refer red To Contact Pain and Spine Center Diagnoses Bilateral hand pain [facility] Only ? Cervical pathology/LUE symptoms /MRI scheduled 02/13/22 schedule after 02/13 inform patient if MRI gets rescheduled must reschedule KJM appt also Lakesha Manzanares, [facility] Sp[facility] [address] [place] [phone] Fax: Referral ID Status Reason Start Date Expiration Date Visits V isits Requested Authorized [id number] Closed Consult, 11/21/2021 11/21/2022 1 1 Test & Treat Encounter Details Date Type Department Care Team Description 03/27/2022 Office Visit Pain and Sp[facility] Center Asad Hurtado C ervicogenic headache; at [facility] Cervical spondylosis [facility] [place] [facility] [address] [place] [address] [phone] Social History Tobacco Use Types Packs/Day Years [...] PM EDT documented as of this encounter Last Filed Vital Signs Vital Sign Reading Time Taken Comments Blood Pressure 152/75 03/27/2022 1:03 PM EDT Pulse 66 03/27/2022 1:03 PM EDT Temperature - - Respiratory Rate - - Oxygen Saturation - - Inhaled Oxygen Concentration - - Weight 74.8 kg (165 lb) 03/27/2022 1:03 PM EDT Height 182.9 cm (6') 03/27/2022 1:03 PM EDT Body Mass Index 22.38 03/27/2022 1:03 PM EDT documented in this encounter Progress Notes John Diaz PA - 03/27/2022 1:00 PM EDT Images from the original note were not included. [facility] John Diaz PA-C Dear Colleagues, I had the pleasure of seeing this patient at the [facility] for evaluation. Brief summary and plan: Diagnosis: 1) cervicalgia Patient seen in conjunction with Dr. Hurtado. Viet is a 62 y.o. year old adult who presents to clinic for evaluation of neck pain and headaches.His MRI shows significant degenerative changes of the spine with central narrowing and foraminal stenosis but no cord compression. His symptoms do not follow a radicular pattern. We reviewed imaging and discussed that while he has these findings on MRI we would not recommend surgery if he was not having radicular or myelopathic symptoms. Treatment options were discussed including more physical therapy to include cervical traction and pursuing a repeat MBB which he is open to. Referrals placed. Follow up prn 1) Referral for PT/cervical traction 2) Referral to pain management for consideration of MBB. Previously seen by Dr. Rojas Chief complaint: Neck pain and headache HPI: Viet is a 62 y.o. old adult who presents to clinic for evaluation of neck pain that travels up andcauses occipital pain and headaches. He has had these symptoms ongoing and progressively worsening over the past 20 years, but with 2 years of significant worsening when he started seeking treatment. He has seen neurology and orthopedics for this. He reports pain that stays primarily in the neck. He reports occasional numbness that travels down his left upper extremity, sometimes when cycling. He finds that symptoms worsen throughout the day andafter increased activity He does not endorse any persistent arm pain, numbness, tingling, weakness, hand dysfunction, or gait disturbances. Treatments thus far have included occipital nerve blocks x3, physical therapy, antiinflammatories. He was scheduled and undergoing MBB which was discontinued mid procedure. Current Outpatient Medications Medication Instructions ??? clonazePAM (KLONOPIN) 1 mg, Oral, PRN ??? diclofenac (CATAFLAM) 50 mg, Oral, DAILY ??? galcanezumab-gnlm (EMGALITY SYRINGE) 120 mg, Subcutaneous, EVERY 30 DAYS ??? valACYclovir (VALTREX) 500 mg, Oral, PRN Patient Active Problem List Diagnosis Code ??? Bilateral foot pain M79.671, M79.672 ??? Atrial fibrillation I48.91 ??? Cardiomyopathy I42.9 ??? Atypical chest pain R07.89 ??? Bipolar II disorder F31.81 ??? Anxiety F41.9 ??? S/P Left cartiva for hallux rigidus 08/08/2017 Dr. Burns M20.21, M20.22 ??? Hallux rigidus of right foot M20.21 ??? Neck pain M54.2 ??? Cervicogenic headache G44.86 ??? Cervical spondylosis M47.812 Past Surgical History: Procedure Laterality Date ??? PRO HALLUX RIGIDUS W/CHEILECTOMY 1ST MP JT W/IMPLT Left 08/08/2017 CORRECTION HALLUX RIGIDUS, W IMPLANT (WRVU 8.01) performed by Grabiel Burns MD at [facility] MAIN OR ??? XR FLUORO INJECTION DRAINAGE JOINT SM RIGHT Right 11/11/2018 XR Fluoro Guided Joint Injection Small Right 11/11/2018 [facility] RAD XRAY Social: Tobacco use: never Occupation: retired Review of systems: As above in HPI Physical exam: Resting comfortably in no acute distress. Ambulates without assistive device. Able to toe, heel, tandem gait. Has limited cervical ROM in all planes with posterior neck pain. He has good functional shoulder ROM. He has normal sensation in bilateral upper extremities. Motor strength is 5/5 throughout. R eflexes are symmetric 2+. Negative troy bilaterally. Able to perform rapid alternating movements. Imaging: Reviewed MRI from 03/19/22 which shows significant degenerative changes central and foraminal stenosis throughout there cervical spine. There is disc height loss throughout and slight listhesis at multiple levels. There is no myelomalacia. Assessment/plan: Patient seen in conjunction with Dr. Hurtado. Viet is a 62 y.o. year old adult who presents to clinic for evaluation of neck pain and headaches.His MRI shows significant degenerative changes of the spine with central narrowing and foraminal stenosis but no cord compression. His symptoms do not follow a radicular pattern. We reviewed imaging and discussed that while he has these findings on MRI we would not recommend surgery if he was not having radicular or myelopathic symptoms. Treatment options were discussed including more physical therapy to include cervical traction and pursuing a repeat MBB which he is open to. Referrals placed. Follow up prn 1) Referral for PT/cervical traction 2) Referral to pain management for consideration of MBB. Previously seen by Dr. Rojas Thank you for letting me participate in this patient's care. Sincerely, John Diaz PA-C [facility] Asad Hurtado MD - 03/27/2022 1:00 PM EDT Images from the original note were not included. [place] [facility] Asad Hurtado MD MS Lakesha Manzanares MD [facility] [place] [address] Markus Ascencio MD [address] / [facility] [address] Dear Colleagues, I had the pleasure of seeing this patient at the [facility] for surgical evaluation. Patient seen in conjunction with John LANGFORD. Please see his clinical notes for details. This patient was referred by Dr. Karan Wen and has been followed by Dr. Rojas. Prior notes were reviewed specific from Lakesha Manzanares 11/21/2021 this exam was focused more on bilateral hand pain. Chief complaint: Neck pain with occipital headaches severe Diagnosis: 1. Occipital headaches with diffuse cervical spondylosis 2. Latest MRI shows C3-4 left foraminal stenosis, C4-5 left foraminal stenosis, C5-6 right foraminalstenosis, C6-7 bilateral foraminal stenosis. No central stenosis. 03/19/2021 This patient has been managed by Dr. Ballard. Please see his notes from 03/08/2021. He is also seen Dr. Adame. Occipital blocks have been performed. He has been better evaluated by Dr. Casillas 09/19/2020 surgery was not recommended given that it was primarily neck pain. He is seen physical therapy withAdelina Mojica trained physical therapist. Last visit with neurology 03/12/2022. On exam he has no red flags. No focal weakness. There is probably neck pain and occipital headaches.Unfortunately this is not a problem that can be managed with surgery successfully. He is had appropriate treatment I would recommend that he continue. We talked about considerations for medial branch blocks. I put in a referral to Dr. Rojas for further evaluation. Dr. Rojas is leaving and he may need to see another provider. We also talked about cervical traction. I referred him to [facility] and placed an order. Plan: 1. No indication for surgical intervention 2. Physical therapy consideration for cervical traction. Ordered. 3. Referral to Dr. Rojas for consideration for medial branch blocks. Interventional evaluation. Sincerely, Asad Hurtado MD MS [facility] Airplane First Officer - Orthopedic Spine Surgery Coffee Urn Attendant - Department of Orthopedic Surgery / [employer] Newspaper Distributor Supervisor - [facility] 03/31/2022 Spine Center Response Trends Patient-reported scores: myD-H Spine Questionnaire responses 07/02/2017 09/24/2017 01/07/2018 09/19/2020 11/18/2021 Neck Disability Index (Range: 0-100) - - - 62 (Severe disability) - PROMIS-10 Physical Health Score 47.7 44.9 47.7 37.4 47.7 PROMIS-10 Mental Health Score 38.8 41.1 36.3 48.3 43.5 documented in this encounter Plan of Treatment Upcoming Encounters Date Type Specialty Care Team Description 07/02/2022 Office Visit Neurology Candi Sanchez, BRACELET FORM COVERER [facility] [address] [place] [address] (Wo rk) Scheduled Referrals Name Type Priority Associated Diagnoses Order S chedule Referral to Outpatient Referral Routine Cervicogenic headache Ordered: Physical Therapy Cervical spondylosis Referral to Pain Outpatient Referral Routine Cervicogeni c headache Ordered: and Spine Center Cervical spondylosis (Internal only) documented as of this encounter Visit Diagnoses Diagnosis Cervicogenic headache Headache Cervical spondylosis Cervical spondylosis without myelopathy documented in this encounter Care Teams Cytotechnologist Relationship Specialty Start Date End Date Markus Ascencio MD PCP - General Internal Medicine 04/09/17 [address] [place] [address] documented as of this encounter
--- OUTSIDE RECORDS SUMMARY | 2022-06-11 16:18 | XMS_ITS | Encounter Summary ---
:1960 Author Organization [facility] [place] [address] Care Team Providers Name Role Phone Markus Ascencio MD Primary Care Provider Reason for Visit Auth/Cert Specialty Diagnoses / Procedures Referred By Contact Refer red To Contact Diagnoses cervicogenic headache Procedures PRO INJ, DIAG/THERAPEUTIC AGENT, PARAVERTEBRAL FACET JT, CERVICAL/THORACIC, SINGLE INJECTION, FACET JOINT,W/FLUORO, CERVICAL, SINGLE (WRVU 1.82) Referral ID Status Reason Start Date Expiration Date Visits Requ ested Visits Authorized [id number] 1 1 Encounter Details Date Type Department Care Team Description 10/13/2020 Ancillary Procedure Pain Management Ba Vital MD Pain [facility] [place] [address] [place] [address] [phone] Social History Tobacco Use Types Packs/Day Years [...] PM EDT documented as of this encounter Plan of Treatment Upcoming Encounters Date Type Specialty Care Team Description 07/02/2022 Office Visit Neurology Candi Sanchez, MULTIPLE CUT OFF SAW OPERATOR [facility] er [address] [place] [address] (Wo rk) documented as of this encounter Procedures Procedure Name Priority Date/Time Associated Diagnosis Comme nts FILM LIBRARY Routine 10/13/2020 1:15 PM Pain Results f or this STORAGE ONLY PAIN EST procedure are in CLINIC C ARM the results section. documented in this encounter Results Film Library- Storage Only pain Clinic [facility] (10/13/2020 1:15 PM EST) Specimen (Source) Anatomical Location Collection Method / Collectio n Time Received Time / Laterality Volume Narrative RAD - 10/13/2020 1:15 PM EST See PACS for result report. Shell Rojas MD I[facility] FILM LIBRARY ORDERABLES Performing Organization Address City/State/ZIP Code Phon e Number [place], [place] documented in this encounter Visit Diagnoses Diagnosis Pain Generalized pain documented in this encounter Care Teams Market Sales Manager Relationship Specialty Start Date End Date Markus Ascencio MD PCP - General Internal Medicine 04/09/17 [address] [place] [address] documented as of this encounter
--- OUTSIDE RECORDS SUMMARY | 2022-06-11 16:18 | XMS_ITS | Encounter Summary ---
:1960 Author Organization [facility] [place] [address] Care Team Providers Name Role Phone Markus Ascencio MD Primary Care Provider Encounter Details Date Type Department Care Team Description 11/07/2020 TH Visit [facility] at Adelina Ortiz, URIEL Neck pain (TeleHealth) [facility] [place] [address] Social History Tobacco Use Types Packs/Day [...] PM EDT documented as of this encounter Progress Notes Adelina Ortiz, PT - 11/07/2020 4:00 PM EST [facility] Physical Therapy Note Referring Provider: Nelson Casillas MD Diagnosis: 1. Neck pain 2. Multilevel cervical spondylosis with foraminal stenosis Date of Onset: 2009 with a significant increase in his pain since April 2020 Work Status and Occupation: Retired Subjective: Mr. Mathis reports the home exercise program has been going well and his pain has improved. Most importantly, he has had no thunderclap headaches. On 10/13/2020 a cervical medial nerve branch block was attempted but unfortunately had to be aborted due to vasovagal reaction Mr. Mathis currently complains of intermittent neck pain with headaches. The pain is rated 0/10 at its least and 3/10 at its worst. He denies upper extremity numbness, tingling, weakness. Symptoms worsen when looking down, looking up, and turning. Symptoms ease when exercising, lying down, or changing position and activity frequently. The pain is usually at its least in the morning and then worsens as is.He sleeps well at night. Objective: Mr. Mathis returns today for a scheduled follow up appointment. He moves about in his home without difficulty and appears comfortable when sitting. Sitting and standing posture is good.Active range of motion of the cervical spine is limited to 60 degrees flexion, 40 degrees extension,60 degrees right rotation, 50 degrees left rotation, 30 degrees right sidebending, and 25 degrees left sidebending. He has a 20% loss of retraction. Endrange extension, retraction, left rotation, and left sidebending all worsen the pain. Repeated movement testing of the cervical spine once again did seem to suggest a directional preference toward retraction followed by extension. Treatment Received: Discussed the natural history of mechanical neck pain with a directional preference and the rational for exercise based treatment. Patient Education/ Home Exercise Program: Reviewed and modified Mr. Mathis's home exercise program. The home exercise program now includes cervical retraction with overpressure followed by extension with overpressure 6-8 times per day. Assessment: Mr. Mathis' range of motion has improved considerably and he is now ready to progress the home exercise program. Goals: 1. Independent with home exercise program 2. Able to turn and look over the shoulder without discomfort 3. Able to look down without discomfort Plan: Follow up in 4 days to reassess and progress the home exercise program. Mr. Mathis was encouraged to call with any questions or concerns regarding todays visit or the home exercise program. Length of visit: A total of 25 minutes was spent re-assessing, treating, and instructing Viet Mathis in a home exercise program. Patient verbally consents to this telehealth visit and understands that this visit may be billed, similar to a clinic office visit. I provided care to the patient today via telehealth. The total time associated with this visit was 25 minutes. documented in this encounter Plan of Treatment Upcoming Encounters Date Type Specialty Care Team Description 07/02/2022 Office Visit Neurology Candi Sanchez, METAL ROOM DENTAL TECHNICIAN [facility] [address] [place], [place] [address] (Wo rk) documented as of this encounter Visit Diagnoses Diagnosis Neck pain Cervicalgia documented in this encounter Care Teams Marketing Services Specialist Relationship Specialty Start Date End Date Markus Ascencio MD PCP - General Internal Medicine 04/09/17 [address] [place] [address] documented as of this encounter
--- OUTSIDE RECORDS SUMMARY | 2022-06-11 16:18 | XMS_ITS | Encounter Summary ---
:1960 Author Organization [facility] [place] [address] Care Team Providers Name Role Phone Markus Ascencio MD Primary Care Provider Reason for Referral Consultation (Routine) - Closed Specialty Diagnoses / Procedures Referred By Contact Refer red To Contact [facility] Diagnoses Bilateral hand pain Hurtado Only ? Cervical pathology/LUE symptoms /MRI scheduled 02/13/22 schedule after 02/13 inform patient if MRI gets rescheduled must reschedule KJM appt also Lakesha Manzanares, [facility] enter [address] Bee ORTHOPAEDIC SURGERY [place] [phone] Fax: Referral ID Status Reason Start Date Expiration Date Visits V isits Requested Authorized [id number] Closed Consult, 11/21/2021 11/21/2022 1 1 Test & Treat Reason for Visit Reason Comments Establish Care XR Bilat CTS Consultation (Routine) - Closed Specialty Diagnoses / Procedures Referred By Contact Refer red To Contact Orthopaedics Diagnoses Carpal tunnel syndrome on left Ulnar neuropathy at elbow of left upper extremity Miriam Adame MD War[place], Lance G, MD [facility] DR NEUROLOGY DEPT OR[place]OP[place] [address] [place] [address] Fax: Referral ID Status Reason Start Date Expiration Date Visits V isits Requested Authorized [id number] Closed Consult, 10/11/2021 10/11/2022 1 1 Test & Treat Encounter Details Date Type Department Care Team Description 11/21/2021 Office Visit Orthopaedics at [facility] Behzad, Bilateral hand pain; [facility] Karan Fair Jr., Slac (s capholunate advanced collapse) of wrist, right; Rohit ESQUIVEL Arthritis of carpometacarpal (CMC) joint of left thumb; [place], [place] [facility] Cubital tunnel syndrome on left [id number] [place] [address] [place] [address] Social History Tobacco Use Types Packs/Day Years [...] Sign Reading Time Taken Comments Blood Pressure 139/77 11/21/2021 1:01 PM EST Pulse - - Temperature - - Respiratory Rate - - Oxygen Saturation - - Inhaled Oxygen Concentration - - Weight 75.8 kg (167 lb) 11/21/2021 1:01 PM EST Height 182.9 cm (6') 11/21/2021 1:01 PM EST Body Mass Index 22.65 11/21/2021 1:01 PM EST documented in this encounter Progress Notes Lakesha Manzanares MD - 11/21/2021 1:00 PM EST Viet Miko Mathis 1960 [id number] 11/21/2021 HPI: Viet is 61 y.o. ogjgo-ivhk-noklwavp white male who presents to clinic today for chief complaint of bilateral hand pain. The patient notes that both of his hands have bothered him for a number ofyears but have significantly worsened over the past 6 months. He reports that both hands are equallybothersome, though the right side is more severe with respect to the pain. On the right side his pain is predominantly at the radial aspect of the wrist and occasionally extending into the thenar area.On the left, the patient points directly over his dorsal CMC joint as his most notable area of pain.Patient notes that he takes diclofenac orally which significantly improves his pain. He has tried togo without this but finds the pain significantly limits his activities. He usually likes to chop wood for his house but notes that he has had difficulty with that this year. He is also an avid cross-country skier. The patient has not had any steroid injections into either of his hands. Has not tried splinting. He does have neck stiffness and pain. Has been seen in pain clinic for occipital nerve block injections. He denies any history of trauma to either of his wrist except for a left wrist injury as a kid. He has never had any surgery on his wrists. In discussion with the patient, he does have night pain in his bilateral hands. This pain is described as throbbing. He denies any symptoms of numbness or tingling. He does not have abnormal sensation in his hands with activities. 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 Past Medical History: Diagnosis Date ??? Anxiety 04/09/2017 ??? Atrial fibrillation 04/09/2017 History of ablation attempt x 2 [facility] ??? Atypical chest pain 04/09/2017 ??? Bilateral foot pain 12/18/2016 ??? Bipolar II disorder 04/09/2017 ??? Cardiomyopathy 04/09/[address] [facility] referral, based possibly on nuclear stress test (details unknown) ??? Hallux rigidus of right foot 11/11/2018 ??? Neck pain 09/19/2020 ??? S/P Left cartiva for hallux rigidus 08/08/2017 Dr. Burns 04/23/2017 Past Surgical History: Procedure Laterality Date ??? PRO HALLUX RIGIDUS W/CHEILECTOMY 1ST MP JT W/IMPLT Left 08/08/2017 CORRECTION HALLUX RIGIDUS, W IMPLANT (WRVU 8.01) performed by Grabiel Burns MD at [facility] MAIN OR ??? XR FLUORO INJECTION DRAINAGE JOINT SM RIGHT Right 11/11/2018 XR Fluoro Guided Joint Injection Small Right 11/11/2018 [facility] RAD XRAY Family History Problem Relation Age of Onset ??? Cancer Mother Breast cancer ??? Migraines Mother Social History Socioeconomic History ??? Marital status: Spouse name: Not on file ??? Number of children: Not on file ??? Years of education: Not on file ??? Highest education level: Not on file Occupational History ??? Not on file Tobacco Use ??? Smoking status: Never Smoker ??? Smokeless tobacco: Never Used Vaping Use ??? Vaping Use: Never used Substance and Sexual Activity ??? Alcohol use: Yes Comment: once in a while ??? Drug use: No ??? Sexual activity: Not on file Other Topics Concern ??? 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 Neurological: Negative Meds: Current Outpatient Medications on File Prior to Visit Medication Sig Dispense Refill ??? valACYclovir (VALTREX) 500 mg Tablet Take 500 mg by mouth as needed. 0 ??? diclofenac (CATAFLAM) 50 mg Tablet Take 50 mg by mouth as needed. 0 ??? celecoxib (CeleBREX) 100 mg Capsule Take 1 capsule by mouth 2 times daily. (Patient not taking: Reported on 11/21/2021) 60 capsule 3 ??? clonazePAM (KLONOPIN) 1 mg Tablet Take 1 mg by mouth as needed. 0 No current facility-administered medications on file prior to visit. Physical Exam: Blood pressure 139/77, height 182.9 cm (6'), weight 75.8 kg (167 lb). Patient is well-appearing, alert and oriented, accompanied by noone. Breathing is non-labored at rest. Ambulates with non-antalgic gait. Uses no assistive devices. Appearance noted and with some features characteristic of OA at CMC joints bilaterally Range of motion Cervical spine; flex/extension, rotation, and lateral bending limited and tentative. Most limited with lateral bending ROM. No pain or Spurlings. Remainder upper limbs with normal ROM bilaterally, EXCEPT RIGHT wrist F/E 70/80. No palmar crepitus or flexor tenosynovitis. No triggering. Ulnocarpal abutment maneuvers produce no pain bilaterally. DRUJ stable. On the LEFT there is some crepitus at the CMC with laxity and moderate discomfort and a prominent shoulder sign. Left thumb MP stable to ulnar and radial stress. Hyperextension of MP on left. The right thumb MP has increased laxity to ulnar stress with incompetent RCL. Stable to radial stress. On the right there is mild crepitus at the CMC with minimal laxity and no discomfort. Tenderness on right over the radioscaphoid joint and capitolunate joints most notable. Mild tenderness over scapholunate ligament and radiolunate joint is nontender. Wrist flexion test negative bilaterally. Mildly positive Tinel's at left elbow. Ulnar nerve negative at right elbow. Motor strength 5/5 bilateral to manual resistance testing. 5/5 intrinsics, palmar abduction, normal pinch. Negative Froment's and Wartenberg signs. Deep tendon reflexes 2+, symmetrical bilateral. Sensation intact bilateral to light touch. No skin lesions or stasis dermatitis. Imaging: Films demonstrate RIGHT SLAC wrist, stage III; on left there is advance Eaton stage III basal joint arthritis Active Problem List: Patient Active Problem List Diagnosis Code ??? Bilateral foot pain M79.671, M79.672 ??? Atrial fibrillation I48.91 ??? Cardiomyopathy I42.9 ??? Atypical chest pain R07.89 ??? Bipolar II disorder F31.81 ??? Anxiety F41.9 ??? S/P Left cartiva for hallux rigidus 08/08/2017 Dr. Burns M20.21, M20.22 ??? Hallux rigidus of right foot M20.21 ??? Neck pain M54.2 ??? Cervicogenic headache G44.86 ??? 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 Consistent with treatment of the primary diagnosis, we have suggested regular routine of diclofenac, 50 mg po qd pc, and discussed possibility of surgical reconstruction if sxs become resistant to medicinal treatment. His LEFT thumb basal joint was discussed in similar context with surgical reconstructionpossible if desired and warranted. We did also discuss his neuro studies and pointed out the rather severe electrical abnormalities present in the absence of ANY sxs, and he was advised to return should he begin to notice and weakness or clumsiness of grasp or more than just fleeting sensory sxs. He will return on prn basis for questions or further dare as he may desire. WE have also referred him to Dr Fer Hurtado for his cervical and occipital sxs, suspecting possible foraminal encroachment. Lakesha aMnzanares MD [facility] Orthopaedic Surgery Orthopaedic Surgery PGY-5 I have seen and examined the above named patient, reviewed and edited the contents of the note supplied by the resident or physician curtain cleaner with whom I saw the patient, and reviewed our findings andrecommendations with the patient in person. Karan Wen Jr, MD Department of Orthopaedics [facility] documented in this encounter Plan of Treatment Upcoming Encounters Date Type Specialty Care Team Description 07/02/2022 Office Visit Neurology Candi Sanchez, RF MICROWAVE ENGINEER [facility] CAROLINE [place] 0375 (Wo rk) Scheduled Referrals Name Type Priority Associated Diagnoses Order S chedule Referral to Spine Outpatient Referral Routine Bilateral hand p ain Ordered: Center 11/21/2021 documented as of this encounter Visit Diagnoses Diagnosis Bilateral hand pain Pain in limb Slac (scapholunate advanced collapse) of wrist, right Arthritis of carpometacarpal (CMC) joint of left thumb Cubital tunnel syndrome on left Lesion of ulnar nerve documented in this encounter Care Teams Senior Advisory Relationship Specialty Start Date End Date Markus Ascencio MD PCP - General Internal Medicine 04/09/17 [address] [place] [address] documented as of this encounter
--- OUTSIDE RECORDS SUMMARY | 2022-06-11 16:18 | XMS_ITS | Encounter Summary ---
:1960 Author Organization [facility] [place] [address] Care Team Providers Name Role Phone Markus Ascencio MD Primary Care Provider Reason for Referral Routine Exam (Routine) - Closed Specialty Diagnoses / Procedures Referred By Contact Refer red To Contact Diagnoses Cervicogenic headache Rosa Isela Villalba MD Procedures NERVE BLOCK - OCCIPITAL [facility] [place] [address] Referral ID Status Reason Start Date Expiration Date Visits V isits Requested Authorized [id number] Closed Specialty 04/27/2021 04/27/2022 1 1 Service Requested Encounter Details Date Type Department Care Team Description 04/27/2021 Procedure visit Neurology at Romel Chew MD Cervicogenic headache [address] [place] [address] [place] [address] [phone] Social History Tobacco Use Types Packs/Day Years [...] documented as of this encounter Progress Notes Rosa Isela Villalba MD - 04/27/2021 11:00 AM EDT Procedure Note Procedure: Bilateral Greater Occipital Nerve Blocks Indication: Cervicogenic Headache Consent: Indication, risks, benefits, and alternatives discussed with patient, including risk of bleeding, infection, permanent numbness, and medication reaction. Written consent signed by patient - 04/2021 Location: The greater occipital nerve was located by first palpating the mastoid and midline occipital ridge. The nerve was palpated at 2/3 the distance to the occipital ridge. It was coincident with maximal tenderness Medication: 2/3 2% lidocaine and 1/3 40mg/ml depo-medrol Technique: The area was cleansed with 2 alcohol swabs while using clear gloves. Using a 3 cc syringeand a 30 guage 1/2 inch needle, 3 cc of the medication mixture was injected into multiple tissue planes in the area around each greater occipital nerve. I ensured not to inject into the large dense inflamed muscle tissue but rather injected around them. Prior to each injection the plunger was drawn back to ensure that the needle was not in a blood vessel. The patient tolerated the procedure well. Complications: None Blood loss: <1 cc documented in this encounter Procedure Notes Rosa Isela Villalba MD - 04/27/2021 11:00 AM EDTProcedure(s): NERVE BLOCK - OCCIPITAL Pre-Procedure Diagnose(s): Cervicogenic headache Procedure Note ?? Procedure: Bilateral Greater Occipital Nerve Blocks ?? Indication: Cervicogenic Headache ?? Consent: Indication, risks, benefits, and alternatives discussed with patient, including risk of bleeding, infection, permanent numbness, and medication reaction. Written consent signed by patient - 04/2021 ?? Location: The greater occipital nerve was located by first palpating the mastoid and midline occipital ridge. The nerve was palpated at 2/3 the distance to the occipital ridge. It was coincident with maximal tenderness ?? Medication: 2/3 2% lidocaine and 1/3 40mg/ml depo-medrol ?? Technique: The area was cleansed with 2 alcohol swabs while using clear gloves. Using a 3 cc syringeand a 30 guage 1/2 inch needle, 3 cc of the medication mixture was injected into multiple tissue planes in the area around each greater occipital nerve. I ensured not to inject into the large dense inflamed muscle tissue but rather injected around them. Prior to each injection the plunger was drawn back to ensure that the needle was not in a blood vessel. The patient tolerated the procedure well. ?? Complications: None Blood loss: <1 cc documented in this encounter Plan of Treatment Upcoming Encounters Date Type Specialty Care Team Description 07/02/2022 Office Visit Neurology Candi Sanchez, CENTRAL STERILE SUPPLY TECHNICIAN [facility] [address] [place], [place] [address] (Wo rk) Scheduled Orders Name Type Priority Associated Diagnoses Order S chedule NERVE BLOCK - OCCIPITAL Neurology Routine Cervicogenic head ache Ordered: 04/27/2021 documented as of this encounter Visit Diagnoses Diagnosis Cervicogenic headache Headache documented in this encounter Administered Medications Inactive Administered Medications - up to 3 most recent administrations Medication Order MAR Action Action Date Dose Rate Site lidocaine (pf) (Xylocaine) (20 Given 04/27/2021 12:00 PM EDT 120 mg mg/mL) 2% injection 120 mg 120 mg, Intramuscular, ONCE, 1 dose, On Denisha 04/27/21 at 1215, Routine methylPREDNISolone acetate (DEPO-Medrol) (40 Given 11:59 AM EDT 80 mg mg/mL) injection 80 mg 80 mg, Intramuscular, ONCE, 1 dose, On Denisha 04/27/21 at 1215, Routine documented in this encounter Care Teams Community Marketing Coordinator Relationship Specialty Start Date End Date Markus Ascencio MD PCP - General Internal Medicine 04/09/17 [address] [place] [address] documented as of this encounter
--- OUTSIDE RECORDS SUMMARY | 2022-06-11 16:18 | XMS_ITS | Encounter Summary ---
:1960 Author Organization [facility] [place] [address] Care Team Providers Name Role Phone Markus Ascencio MD Primary Care Provider Reason for Visit Reason Onset Date Comments Medication Refill 11/09/2020 Encounter Details Date Type Department Care Team Description 11/09/2020 Refill Neurology at [facility] Miriam Adame MD Episodic weakness [facility] [place] [address] NEUROLOGY DEPT [phone] [place], [place] [address] (Wo rk) Social History Tobacco [...] Description 07/02/2022 Office Visit Neurology Candi Sanchez, WAFER LINE WORKER [facility] [address] [place] [address] (Wo rk) documented as of this encounter Visit Diagnoses Diagnosis Episodic weakness documented in this encounter Care Teams District Customs Director Relationship Specialty Start Date End Date Markus Ascencio MD PCP - General Internal Medicine 04/09/17 [address] [place] [address] documented as of this encounter
--- OUTSIDE RECORDS SUMMARY | 2022-06-11 16:18 | XMS_ITS | Encounter Summary ---
:1960 Author Organization [facility] [place] [address] Care Team Providers Name Role Phone Markus Ascencio MD Primary Care Provider Reason for Visit Reason Onset Date Comments Other 10/31/2020 Encounter Details Date Type Department Care Team Description 10/31/2020 Telephone Neurology at [facility] Rosa Isela Villalba MD Other [facility] [place] [address] NEUROLOGY [phone] [place], [place] [address] (Wo rk) Social History Tobacco [...] this encounter Miscellaneous Notes Telephone Encounter - Inga Patino - 10/31/2020 2:28 PM EST Call Center / [place] Message - General Issue Call Provider patient sees in Clinic: Dr. Villalba Caller and relationship (if other than patient-full name): Pt Call back number: [phone] Ok to leave a message: yes Reason for call: Pt called stating he would like to change his 11/03 appt to a telehealth. This agentnotified pt that the appt was scheduled as a procedure and in the notes it stated it was a 4 wk follow up nerve block but pt stated he does not want the nerve block. Please call pt back to discuss rescheduling Disposition of Call (choose one and remove others): ??? Red Arrow Message Reason red arrow Message: Yes, pt's appt is on 11/03 documented in this encounter Plan of Treatment Upcoming Encounters Date Type Specialty Care Team Description 07/02/2022 Office Visit Neurology Candi Sanchez, METER INSTALLER [facility] [address] [place], [place] [address] (Wo rk) documented as of this encounter Visit Diagnoses Not on filedocumented in this encounter Care Teams Disc Inspector Relationship Specialty Start Date End Date Markus Ascencio MD PCP - General Internal Medicine 04/09/17 [address] [place] [address] documented as of this encounter
--- OUTSIDE RECORDS SUMMARY | 2022-06-11 16:18 | XMS_ITS | Encounter Summary ---
:1960 Author Organization [facility] [place] [address] Care Team Providers Name Role Phone Markus Ascencio MD Primary Care Provider Reason for Visit Reason Comments Prior Authorization Emgality 240mg/2mL SOSY Encounter Details Date Type Department Care Team Description 03/13/2022 Specialty Pharmacy Pharmacy at [facility] Xuan Hope Prior Authorization [facility] (Emgality 240mg/2mL Drive SOSY) [place] [address] Social History Tobacco Use Types Packs/Day Years [...] documented as of this encounter Progress Notes Xuan Hope - 03/13/2022 8:52 AM EDT [facility], Medication Prior Authorization Submission Patient: Viet Mathis Patient : 1960 Patient Address: [address] [place] [address] (home) Medication Name: EMGALITY 120 MG/ML SUBCUTANEOUS SYRINGE Medication ID: [id number] Subscriber Insurance: [place] Medicaid Subscriber Insurance Comment: Fax: Physician: CHELLE JOHNSON Physician Comment: Sent Via: CMM Thapa: THAPA: [id number] Ref/Case/PA#: NA Medication Strength Frequency Requested: Emgality/240mg./30 Qty/Day Supply: New Start: New to Therapy Diagnosis & ICD-10 Code: Chronic Migraines Patient Notified: Left Voicemessage Submission Notes: DHRX#285 PA SUBMITTED VIA CMM (THAPA: [id number]). LVM FOR PATIENT IN REGARDS TO PA TIMELINE FRAME FOR EMGALITY. DOCUMENTING IN EDH. Xuan Hope 03/13/22 8:54 AM Xuan Hope - 03/13/2022 8:52 AM EDT [facility], Prior Authorization Approval Medication Name: EMGALITY 120 MG/ML SUBCUTANEOUS SYRINGE Medication ID: [id number] Approval Dates: 03/13/2022 to 09/12/2022 Insurance requirements/notes: DHRX#172 NA Other Notes: DHRX#262 [place] APPROVED VIA ONBASE FOR EMGALITY FROM 03/13/2022 TO 09/12/2022 WITH $3.00 COPAY. DOCUMENTING IN EDH. Case/Reference #: NA Approval notification Received via: Fax Copay: $3.00 Copay assistance: None Copay Notes: Patient has [place] Medicaid insurance. Insurance mandated Pharmacy: [facility] Fillable at [facility]: Yes Pharmacy staff will be reaching out to the patient to inform them of their medication's approval by their insurance. If applicable, a pharmacist will speak with the patient to offer our specialty pharmacy services and to arrange delivery of their medication. Xuan Hope 03/13/22 11:23 AM documented in this encounter Plan of Treatment Upcoming Encounters Date Type Specialty Care Team Description 07/02/2022 Office Visit Neurology Candi Sanchez, CHIEF LIFESTYLE OFFICER [facility] [address] [place], [place] [address] (Wo rk) documented as of this encounter Visit Diagnoses Not on filedocumented in this encounter Care Teams Head Cager Relationship Specialty Start Date End Date Markus Ascencio MD PCP - General Internal Medicine 04/09/17 [address] [place] [address] documented as of this encounter
--- OUTSIDE RECORDS SUMMARY | 2022-06-11 16:18 | XMS_ITS | Encounter Summary ---
:1960 Author Organization [facility] [place] [address] Care Team Providers Name Role Phone Markus Ascencio MD Primary Care Provider Encounter Details Date Type Department Care Team Description 10/12/2021 [facility]ahul [address] [place] [address] [place] [address] [phone] Social History Tobacco Use Types Packs/Day Years [...] Sign Reading Time Taken Comments Blood Pressure 154/82 10/12/2021 9:45 AM EST Pulse 64 10/12/2021 9:45 AM EST Temperature - - Respiratory Rate - - Oxygen Saturation - - Inhaled Oxygen Concentration - - Weight 75.8 kg (167 lb 3.2 oz) 10/12/2021 9:45 AM EST Height 182.9 cm (6') 10/12/2021 9:45 AM EST reported Body Mass Index 22.68 10/12/2021 9:45 AM EST documented in this encounter Progress Notes Rahul King MD - 10/12/2021 10:00 AM EST [facility] - Follow up Appointment: INITIAL CONSULTATION: September 29, [address] Villalba headache medicine fellow LAST SEEN: August 15, 2021 INTERIM HISTORY: Since last being seen Viet Mathis reports that the most recent occipital nerve blocks with steroid were not as effective as the initial injection in April 2021. It was likely less effective than the occipital nerve block without steroid in May 2021. He continues to note marked pain and allodynia at the craniocervical junction. He recently had an episode where he had pain radiating to the left periorbital area. It was quite severe. There was associated photophobia and nausea. His baseline photophobia has been increasing over time. He had associated blurred vision. There was also likely difficulties with attention concentration and cognition. He was driving at the time. He was able to get home. A hot shower and a clonazepam because the symptoms resolved within approximately 1 hour. He does not have a history of migraine headaches however the most recent attack had numerous migraine qualities. He brought with him a journal article from the Journal of headache and pain. This article was describing the potential origins of cervicogenic headache and the overlap with migrainous disorders. The descriptions resonated well with his experiences to date. He also brought with him notes with some of his observations as well as questions. I will have the journal article in his note scanned into the medical record. His main questions werethe next steps in treatment. He also asked about decompressive surgeries. He has severe pain and has markedly affected by this. He also brought with him numerous homemade and commercial devices that he use for direct pressure/massage of the affected areas at the craniocervical junction. These were helpful to understand the types of manual therapies that are providing him some minimal relief. HEADACHE DIAGNOSIS/PHENOTYPE: Cevicogenic Headache HEADACHE DESCRIPTION: Changed: Recent attack having migraine qualities. HEADACHE FREQUENCY: Daily and continuous HEADCHE DAYS PER MONTH: 30 HEADACHE FREE DAYS PER MONTH: 0 FREQUENCY OF ACUTE MEDICATION USE: None, he does occasionally use diclofenac for other pain CURRENT ACUTE TREATMENT: None CURRENT REDUCTION TREATMENT: Occipital nerve blocks with and without steroid ACUTE MEDICATIONS THAT HAVE FAILED INCLUDE: Diclofenac, ibuprofen, meloxicam, topical Voltaren REDUCTION MEDICATIONS THAT HAVE FAILED INCLUDE: Cyclobenzaprine, pregabalin He was previously seen in the pain clinic for consideration of medial branch blocks for evaluation for possible radiofrequency ablation. He had a vasovagal episode during the procedure and it was aborted. OUTSTANDING INVESTIGATIONS: None OTHER: None The patient's current medications, allergies, past medical history, past surgical history, family history, and social history were reviewed in the electronic medical record and reconciled with the patient during the encounter. Current Outpatient Medications on File Prior to Visit Medication Sig Dispense Refill ??? valACYclovir (VALTREX) 500 mg Tablet Take 500 mg by mouth as needed. 0 ??? clonazePAM (KLONOPIN) 1 mg Tablet Take 1 mg by mouth as needed. 0 ??? diclofenac (CATAFLAM) 50 mg Tablet Take 50 mg by mouth as needed. 0 ??? [DISCONTINUED] pregabalin (Lyrica) 25 mg Capsule Take 1 capsule by mouth 2 times daily. (Patientnot taking: Reported on 08/15/2021) 60 capsule 3 No current facility-administered medications on file prior to visit. No Known Allergies Questionnaire Results: MIDAS MIDAS grade (use total of Q1 to 5) I: 0-5, little to no disability II: 6-10, mild disability III: 11-20, moderate disability IV: 21+, severe disability MIDAS Responses 10/12/2021 Days missed school/work 0 Days productivity at work/school reduced 60 Days did not do household work 45 Days productivity related to housework reduced 45 Days missed family, social or leisure activities 60 Days had headache 90 Pain scale 2 MIDAS Score 210 (MIDAS grade IV, severe disability) MIDAS Adjusted Score - PHQ9 PHQ-9 QUESTIONNAIRE (AMB) 10/12/2021 PHQ - 9 Score (Patient) 5 (Mild Depression) Little interest or pleasure (Patient) Several days Down, depressed, hopeless (Patient) Several days Trouble sleeping (Patient) Not at all Tired or no energy (Patient) Several days Poor appetite or overeating (Patient) Not at all Feeling like a failure (Patient) Not at all Trouble concentrating (Patient) More than half the days Moving or speaking slowly (Patient) Not at all Would be better off (Patient) Not at all Mild: 5-9 Moderate: 10-14 Mod-Severe: 15-19 Severe: >20 GAD7 JESI-7 Patient Reported Responses 10/12/2021 Nervous, anxious (Patient) Several days Unable to stop worrying (Patient) Several days Worrying about different things (Patient) Several days Trouble relaxing (Patient) Several days Restless (Patient) Not at all Easily annoyed, irritable (Patient) Several days Afraid something awful will happen (Patient) Several days Difficulty (Patient) Somewhat difficult JESI-7 Score (Patient) 6 (Mild Anxiety) Mild: 5-9 Moderate: 10-14 Severe: 15-21 PHYSICAL EXAMINATION: Patient Vitals for the past 24 hrs: Pulse BP 10/12/21 0945 64 154/82 General exam: The patient looked well and was in no acute distress. Dressed appropriately. The patient is alert, interactive, and has appropriate mood and congruent affect. The patient is able to recall the details of their medical history without difficulty. HEENT: Normocephalic, atraumatic. No rashes or other skin lesions noted on the head or face. Good active range of motion of the neck. Neurologic Examination: Mental status, Speech and Language: Normal in ordinary conversation. Cranial nerves: Pupils are equal and round. Extraocular movements are intact. No facial asymmetry orweakness. Tongue midline and moves normal. Motor Examination: No focal weakness. Coordination: No evidence of any ataxia. Gait: Normal straightaway gait. IMPRESSION: Unfortunately there has not been any interval improvement or stability. With respect to ongoing treatment options I have recommended that he continue with his neck scheduled occipital nerve block with steroid in November. With respect to different medication trials we discussed long-acting NSAIDs, tizanidine, and baclofen. After detailed discussion of risks, benefits, and side effects we ultimately decided to try a long-acting NSAID. I recommended celecoxib 100 mg twice daily. He understands that regular NSAIDs including celecoxib can have increased risk of stroke and heart attack. He does not have other risk factors. Consider trial of ASA + Minoo seltezer for acute treatment (total dose ASA 975 mg). There would be future considerations for tizanidine or baclofen. I will copy his pain clinic provider Dr. Rojas on this note. I do not know if his previous vasovagal episode means that his medial branch blocks can be no longer pursued or if additional measures with sedation may be required in order to enact the procedure. I have also asked the patient to reach out to Dr. Rojas. Given the severity of symptoms and the effect on his life I believe we should be pursuing allpossible options. With respect to his specific question about decompressive surgery of the nerves. Formed and I do nothave a lot of information on this. I have a by sampling as I have seen numerous patients who have failed this procedure or it made their symptoms worse. I typically do not recommend nerve decompressionsurgeries unless it is for a radiculopathy. Follow-up in November for repeat nerve block and for transfer of care with Dr. Daxa Warner. The pathophysiology, natural history, aggravating factors, and my diagnostic/management plan was discussed with the patient in great detail. The risks and benefits of this treatment plan were discussedwith the patient. Individual side effect profiles for each medication were discussed in detail. Instructions on how to properly take each medication were discussed in detail. The patient was given an opportunity to ask questions. All questions were answered and the patient was satisfied with the explanation(s). If any area requires explanation or clarification please do not hesitate to contact me. Total time spent with Patient and/or charting on the day of the encounter: 70 minutes. Adam King MD documented in this encounter Plan of Treatment Upcoming Encounters Date Type Specialty Care Team Description 07/02/2022 Office Visit Neurology Candi Sanchez, FIELD ACCOUNT MANAGER [facility] [address] [place], [place] [address] (Wo rk) documented as of this encounter Visit Diagnoses Diagnosis Cervicogenic headache Headache documented in this encounter Care Teams Retreader Relationship Specialty Start Date End Date Markus Ascencio MD PCP - General Internal Medicine 04/09/17 [address] [place] [address] documented as of this encounter
--- OUTSIDE RECORDS SUMMARY | 2022-06-11 16:18 | XMS_ITS | Encounter Summary ---
:1960 Author Organization [facility] [place] [address] Care Team Providers Name Role Phone Markus Ascencio MD Primary Care Provider Reason for Visit Reason Comments Neck Pain Encounter Details Date Type Department Care Team Description 12/15/2020 TH Visit [facility] at [facility] Ortiz, PT Neck pain (TeleHealth) [facility] [place] [address] Social History Tobacco Use Types Packs/Day [...] encounter Progress Notes Adelina Ortiz, PT - 12/15/2020 8:30 AM EST [facility] Note Referring Provider: Nelson Casillas MD Diagnosis: 1. Neck pain 2. Multilevel cervical spondylosis with foraminal stenosis Date of Onset: 2009 with a significant increase in his pain since April 2020 Work Status and Occupation: Retired Subjective: Mr. Mathis reports the home exercise program has been going well and his pain has not improved significantly. Upon further questioning the thunderclap headaches have resolved. Mr. Mathis currently complains of intermittent neck pain with occipital headaches, left greater than right. The pain is rated 0/10 at its least and 4/10 at its worst. He denies upper extremity numbness, tingling, weakness. Symptoms worsen when looking down, looking up, and turning. Symptoms ease when exercising, lying down, or changing position and activity frequently. The pain is usually at its least in the morning and then worsens as is. He sleeps well at night. Objective: Mr. Mathis returns today for a scheduled follow up appointment. He moves about in his home without difficulty and appears comfortable when sitting. Sitting and standing posture is good.Active range of motion of the cervical spine is limited to 60 degrees flexion, 60 degrees extension,70 degrees right rotation, 55 degrees left rotation, 35 degrees right sidebending, and 30 degrees left sidebending. He has a 0% loss of retraction. Endrange extension, retraction, left [...] exercise program now includes cervical retraction with overpressure, extension with overpressure, bilateral rotation with overpressure followed by bilateral sidebending with overpressure 6-8 times per day. Assessment: Mr. Mathis' range of motion continues to gradually improve and he is now ready to progress the home exercise program. . Goals: 1. Independent with home exercise program 2. Able to turn and look over the shoulder without discomfort 3. Able to look down without discomfort Plan: Follow up in 1 week to reassess and progress the home exercise program. Mr. Mathis was encouraged to call with any questions or concerns regarding todays visit or the home exercise program. Length of visit: A total of 20 minutes was spent re-assessing, treating, and instructing [...] Description 07/02/2022 Office Visit Neurology Candi Sanchez, LARD REFINER [facility] [address] [place], [place] [address] (Wo rk) documented as of this encounter Visit Diagnoses Diagnosis Neck pain Cervicalgia documented in this encounter Care Teams Warehouse Order Picker Relationship Specialty Start Date End Date Markus Ascencio MD PCP - General Internal Medicine 04/09/17 [address] [place] [address] documented as of this encounter
--- OUTSIDE RECORDS SUMMARY | 2022-06-11 16:18 | XMS_ITS | Encounter Summary ---
:1960 Author Organization [facility] [place] [address] Care Team Providers Name Role Phone Markus Ascencio MD Primary Care Provider Reason for Visit Reason Onset Date Comments Appointment 03/16/2022 Encounter Details Date Type Department Care Team Description 03/16/2022 Telephone Neurology at [facility] Salbador Ballard MD Appointment [facility] [place] [address] Neurology [phone] [place], [place] [phone] (Wo rk) Social History Tobacco Use Types [...] this encounter Miscellaneous Notes Telephone Encounter - Izabella Bourne - 03/16/2022 12:41 PM EDT Please warm transfer to Izabella Kurtz ATE appointment from Past tab. documented in this encounter Plan of Treatment Upcoming Encounters Date Type Specialty Care Team Description 07/02/2022 Office Visit Neurology Candi Sanchez, NIGHT SHIFT SUPERVISOR [facility] [place] [address] (Wo rk) documented as of this encounter Visit Diagnoses Not on filedocumented in this encounter Care Teams Body Builder Apprentice Relationship Specialty Start Date End Date Markus Ascencio MD PCP - General Internal Medicine 04/09/17 [address] [place] [address] documented as of this encounter
--- OUTSIDE RECORDS SUMMARY | 2022-06-11 16:18 | XMS_ITS | Encounter Summary ---
:1960 Author Organization [facility] [place] [address] Care Team Providers Name Role Phone Markus Ascencio MD Primary Care Provider Encounter Details Date Type Department Care Team Description 11/15/2021 Telephone Orthopaedics at [facility] Karan Wen [facility] Marv perez Jr., [place] [address] [facility] [phone] ORTHOPAEDIC SURG [place], [place] [address] (Wo rk) Social History Tobacco [...] Miscellaneous Notes Telephone Encounter - Chloe Sandhu - 11/15/2021 2:57 PM EST Patient is a 61 year old male presenting to clinic for bilateral CTS with no previous imaging or work up. Order(s) pended for review and signature. Open encounter to sign orders. documented in this encounter Plan of Treatment Upcoming Encounters Date Type Specialty Care Team Description 07/02/2022 Office Visit Neurology Candi Sanchez, JAI ALAI PLAYER [facility] [place] [place] [address] (Wo rk) documented as of this encounter Results XR Wrist 2 views Bilat (11/21/2021 12:38 PM EST) Anatomical Region Laterality Modality Hand, Wrist Bilateral Digital Radiography Specimen (Source) Anatomical Location Collection Method / Collectio n Time Received Time / Laterality Volume Impressions 11/21/2021 3:23 PM EST 1. ??RIGHT scapholunate nonunion advanced collapse, SLAC. 2. ??Nonunited ulna styloid fracture fra gments and small nonunited dorsal triquetral bone fragment are related to old injury. 3. ??LEFT 1st carpometacarpal joint oste oarthropathy. I have personally reviewed the image(s) and the resident's interpretation and agree with the findings, Kaylee Whipple MD at 11/21/2021 3:23 PM Thank you for letting us participate in the care of this patient. ??If you are a health care provider and have any questi ons regarding this report, please contact the number below. ??For patients who have questions please contact the health career resource specialist that requested your imaging first. ? Electronically signed by: Kaylee Whipple MD, [facility] ([phone]), at 11/21/2021 3:23 PM Narrative 11/21/2021 3:23 PM EST EXAMINATION: XR WRIST 2 VIEWS BILAT CLINICAL HISTORY: bilat CTS and wrist/abdul nd pain TECHNIQUE: 3 views BILATERAL wrist COMPARISON: None FINDINGS: Right: Attenuated proximal pole of the scaphoid with widened scapholunate interval, narrowed scaphoid fossa and proximal kati ration of capitate lunate. The capitate lunate interval is narrowed with bone-on -bone morphology and subchondral sclerosis. The radioscaphoid fossa is narrowed. No fracture, erosion, or destructive bony lesion. No definite chondrocalcinosis. Left: No fracture, erosion, or destructive bon y lesion. Narrowing of the first carpometacarpal joint with mild chondroc alcinosis about this joint. Nonunited ulna styloid bone fragments and triquetr al bone fragment related to old injury. Procedure Note Kaylee Whipple MD - 11/21/2021Formatt ing of this note might be different from the original. EXAMINATION: XR WRIST 2 VIEWS BILAT CLINICAL HISTORY: bilat CTS and wrist/abdul nd pain TECHNIQUE: 3 views BILATERAL wrist COMPARISON: None FINDINGS: Right: Attenuated proximal pole of the scaphoid with widened scapholunate interval, narrowed scaphoid fossa and proximal kati ration of capitate lunate. The capitate lunate interval is narrowed with bone-on -bone morphology and subchondral sclerosis. The radioscaphoid fossa is narrowed. No fracture, erosion, or destructive bony lesion. No definite chondrocalcinosis. Left: No fracture, erosion, or destructive bon y lesion. Narrowing of the first carpometacarpal joint with mild chondroc alcinosis about this joint. Nonunited ulna styloid bone fragments and triquetr al bone fragment related to old injury. IMPRESSION 1. RIGHT scapholunate nonunion advanced collapse, SLAC. 2. Nonunited ulna styloid fracture fragm ents and small nonunited dorsal triquetral bone fragment are related to old injury. 3. LEFT 1st carpometacarpal joint osteoa rthropathy. I have personally reviewed the image(s) and the resident's interpretation and agree with the findings, Kaylee Whipple MD at 11/21/2021 3:23 PM Thank you for letting us participate in the care of this patient. If you are a health care provider and have any questi ons regarding this report, please contact the number below. For patients w ho have questions please contact the health career resource specialist that requested your imaging first. Electronically signed by: Kaylee Whipple MD, [facility] ([phone]), at 11/21/2021 3:23 PM Karan Wen Jr., MD IMG DX ORDERABLES documented in this encounter Visit Diagnoses Diagnosis Bilateral hand pain Pain in limb Bilateral wrist pain Pain in joint, forearm Bilateral hand pain Pain in limb Bilateral wrist pain Pain in joint, forearm documented in this encounter Care Teams Velvet Weaver Relationship Specialty Start Date End Date Markus Ascencio MD PCP - General Internal Medicine 04/09/17 [address] [place] [address] documented as of this encounter
--- OUTSIDE RECORDS SUMMARY | 2022-06-11 16:18 | XMS_ITS | Encounter Summary ---
:1960 Author Organization [facility] [place] [address] Care Team Providers Name Role Phone Markus Ascencio MD Primary Care Provider Reason for Visit Reason Comments Neck Pain Encounter Details Date Type Department Care Team Description 12/06/2020 TH Visit [facility] Ortiz, PT Neck pain (TeleHealth) [facility] [place] [address] Social History Tobacco Use Types Packs/Day [...] encounter Progress Notes Adelina Ortiz, PT - 12/06/2020 2:00 PM EST [facility] [...] further questioning the thunderclap headaches have resolved. He reports having performed the exercises 2 times per day only and not the prescribed 6-8 sessions per day.Mr. Mathis currently complains of intermittent neck pain. The pain is rated 0/10 at its least and 3/10 at its worst. He denies upper extremity numbness, tingling, weakness. Symptoms worsen when looking down, looking up, and turning. Symptoms ease when exercising, lying down, or changing position and activity frequently. The pain is usually at its least in the morning and then worsens as is. He sl eeps well at night. Objective: Mr. Mathis returns today for a scheduled follow up appointment. He moves about in his home without difficulty and appears comfortable when sitting. Sitting and standing posture is good.Active range of motion of the cervical spine is limited to 60 degrees flexion, 50 degrees extension,60 degrees right rotation, 50 degrees [...] includes cervical retraction with overpressure, extension with overpressure followed by bilateral sidebending with overpressure 6-8 times per day. Assessment: Mr. Mathis' range of motion has improved slightly and he is now ready to progress the home exercise program. Hopefully, his pain will gradually improve once he performs the exercises regular intervals throughout the day. Goals: 1. Independent with home exercise program [...] Description 07/02/2022 Office Visit Neurology Candi Sanchez, CAFE WORKER [facility] [address] [place], [place] [address] (Wo rk) documented as of this encounter Visit Diagnoses Diagnosis Neck pain Cervicalgia documented in this encounter Care Teams Arnp Relationship Specialty Start Date End Date Markus Ascencio MD PCP - General Internal Medicine 04/09/17 [address] [place] [address] documented as of this encounter
--- OUTSIDE RECORDS SUMMARY | 2022-06-11 16:18 | XMS_ITS | Encounter Summary ---
:1960 Author Organization [facility] [place] [address] Care Team Providers Name Role Phone Markus Ascencio MD Primary Care Provider Reason for Referral Diagnostic Test (Routine) - Authorized Specialty Diagnoses / Procedures Referred By Contact Refer red To Contact Radiology Diagnoses Chronic migraine without aura, with intractable migraine, so stated, with status migrainosus Abnormal MRA, brain Ayush Warner MD [facility] Rad [facility] Scan Procedures CT Angiogram [place] [address] [place] [address] Referral ID Status Reason Start Expiration Visits Visits Date Date Requested Authorized [id number] Authorized Specialty 03/12/2022 09/11/2023 1 1 Service Requested Reason for Visit Consultation (Routine) - Closed Specialty Diagnoses / Procedures Referred By Contact Refer red To Contact Neurology Diagnoses Bilateral occipital neuralgia Miriam Adame MD [facility] Neurology [facility] [address] [facility] [place] [address] [place] [address] Referral ID Status Reason Start Date Expiration Date Visits V isits Requested Authorized [id number] Closed Consult, 10/16/2021 10/16/2022 1 1 Test & Treat Encounter Details Date Type Department Care Team Description 03/12/2022 Office Visit Neurology at [facility] Ayush Warner, ronic migraine without aura, with intractable migraine, so stated, with status migrainosus; Road Abnormal MRA, brain [address] [place] [address] [place] [address] [phone] Social History Tobacco Use Types Packs/Day Years [...] Sign Reading Time Taken Comments Blood Pressure 143/81 03/12/2022 12:45 PM EDT Pulse 61 03/12/2022 12:45 PM EDT Temperature - - Respiratory Rate - - Oxygen Saturation - - Inhaled Oxygen Concentration - - Weight 74.8 kg (165 lb) 03/12/2022 12:45 PM EDT Height - - Body Mass Index 22.38 11/21/2021 1:01 PM EST documented in this encounter Progress Notes Ayush Warner MD - 03/12/2022 1:00 PM EDT Neurology Headache Clinic Follow-up Visit 01-12-22 Last Appointment: 10-12-[address] Sofía King Pain today: 2 Interval Headache Hx: This patient previously saw Dr. Sofía King, most recently 10-12-21, but he has left [facility], so this is a transfer of care appointment. I am at least the 6th Neurologist to evaluate him. His comorbid conditions include bipolar Type 2 MDD/JESI, AF s/p 2 ablation attempts, cardiomyopathy, and chronic pain (head, neck, muscles, feet). He has several interlocking problems: 1. Continuous neck and occipital pain, severe, with cervical DJD. Systemic meds (meloxicam, celecoxib, diclofenac, cyclobenzaprine, PGB, GBP) have not been very helpful. ONBs with steroids were effective one time, then twice ineffective. An attempt to do CMBBs C3-5 ended with vasovagal syncope. Drs Huseyin, Orly, and Fernando thought he had cervicogenic MOTLEY. He describes continuous pain from neck to occiput, bilaterally, L>R, sometimes higher than occiput down to traps, worsening as the day goes on. The pain is not throbbing, but sharp and aching, and he gets some relief by deep pressure over the occiput with a wood board or cylinder. Neck position does not seem to trigger or worsen the HAs. Sleep currently is good, but historically not good. Exercise seems to help. Positive: Photophobia/phonophobia Negative: Throbbing, worse with activity, no nausea except on the day with his thunderclaps (see below) 2. 15-20 minute L sided MOTLEY with thunderclap. There were 9 separate severe HAs with nausea over one day. He has severe photophobia as well. He spent the winter in [place], and this resolved. MRI/MRA showed a ?of bilateral carotid stenosis. A CTA was suggested to be considered but not done. 3. Spells of 2-4 days of muscle pain and fatigue, negative work up with Dr. Miriam Adame 4. Syncope felt likely to be vasovagal but QSART recommended by Dr. Ballard in March, but I do not see it was done. He has continuous MOTLEY as well, 90/90 days. +Hx of migraine in mother, no hx of motion sickness. Patient Reported: MIDAS Responses 03/12/2022 Days missed school/work 0 Days productivity at work/school reduced 0 Days did not do household work 0 Days productivity related to housework reduced 0 Days missed family, social or leisure activities 0 Days had headache 90 Pain scale 2 MIDAS Score 0 (MIDAS grade I, little or no disability) MIDAS Adjusted Score - [place] [employer]DL[employer] AGENT: 12/06/2021 1 11/22/2021 CLONAZEPAM 1 MG TABLET 15.0 15 JA DEG [id number] [facility] ([id number]) 0 Medicaid 11/21/2021 1 11/20/2021 CLONAZEPAM 1 MG CUQXOC25.0 15 JA DEG [id number] ([id number]) 0 Medicaid 10/20/2021 1 10/11/2021 CLONAZEPAM 1 MG TABLET 30.0 5 JA DEG [id number] [facility] ([id number]) 0 Comm Ins [place] 04/30/2021 1 02/20/2021 CLONAZEPAM 1 MG TABLET 30.0 14 TI [place]AR[place] [id number] [facility] ([id number]) 1 Medicaid [place] 02/28/2021 1 02/20/2021 CLONAZEPAM 1 MG TABLET 30.0 14 TI [place] [id number] [facility] ([id number]) 0 Medicaid [place] Prescribers Name Address [facility] Zip Phone HAROLDO KING [address] [facility] [address] MARKUS ASCENCIO [address] [facility] [address] MONOCLONAL ANTIBODY Note [facility] Neurology Headache Clinic Patient name: Viet Mathis Date of : 1960 Patient Dx: [x] G43.7 chronic migraine without aura [] G43.9 episodic migraine without aura [] G43.0 migraine with aura Medication being requested: [] Aimovig [] AJOVY [x] Emgality [facility] Mathis has had a lack of success with each of the three most effective anti-migraine prevention categories: antidepressants, anti-epilepsy drugs, and antihypertensives. The FDA has approved the use of Aimovig, Ajovy, & Emgality for the prevention of Chronic and Episodic Migraine. Does the patient have a latex allergy? Yes No Known Allergies Patient has tried and failed: Medications Tried ([x] checked have been tried in the past) Anti-seizure: [] Acetazolamide (Diamox) [] Carbamazepine (Tegretol) [] Clonazepam [x] Gabapentin (Neurontin) [] Lamotragine (Lamictal) [] Levetiracetam (Keppra) [] Oxcarbazepine (Trileptal) [] Phenobarbital [] Phenytoin (Dilantin) [x] Pregabalin (Lyrica) [] Primidone [] Sodium Valproate (Depakote) [] Topiramate (Topamax) [] Zonisamide (Zonegran) Anti-Depressants: SNRI: [] Desvenlafaxine (Pristiq/Khedezla) [] Duloxetine (Cymbalta) [] Levomilnacipran (Fetzima) [] Milnacipran (Savella) [x] Venlafaxine (Effexor) TCA: [x] Amitriptyline (Elavil) [] Amoxapine [] Clomipramine (Anafranil) [] Desipramine (Norpramin) [] Doxepin (Sinequan) [] Imipramine (Tofranil) [] Maprotiline (Ludiomil) [] Nortriptiline (Pamelor) [] Protriptyline (Vivactil) [] Trimipramine (Surmontil) Anti-Hypertensives: Beta Blockers [] Acebutolol (Sectral) [] Atenolol (Tenormin) [] Bisoprolol (Zebeta) [] Metoprolol (Lopressor) [] Nadolol (Cogard) [] Nebivolol (Bystolic) [x] Propranolol (Inderal) [] Timolol NSAIDS: [] Aspirin [x] Celecoxib (Celebrex) [x] Diclofenac potassium [] Flurbiprofen [] Ibuprofen (Advil) [] Indomethacin [] Ketoprofen [] Ketorolac (Toradol) [] Meloxicam (Mobic) [] Nabumetone [] Naproxen sodium (Aleve) Muscle relaxers: [] Baclofen (lioresal) [x] Cyclobenzaprine (flexeril) [] Metaxalone (skelaxin) [] Methocarbamol (robaxin) [] Tizanidine (zanaflex) Procedures: [] Auriculotemporal blocks [] Lumbar puncture [x] Occipital nerve blocks [] Sphenopalatine ganglion blocks [] Supraorbital blocks [] Trigger point injections Non-pharmacologic Tx [] Acupuncture [] Acupressure [] Biofeedback [] Rubber Goods Finisher [] Cognitive Behavioral Therapy [] Craniosacral therapy [] Massage therapy [x] Physical therapy Benzodiazepines: [] Alprazolam (Xanax) [] Chlordiazepoxide (Librium) [x] Clonazepam (Klonopin) [] Diazepam (Valium) [] Lorazepam (Ativan) [] Temazepam (Restoril) Opioids/Narcotics/Controlled Substances: [] Acetaminophen/Codeine (Tylenol #3) [] Acetaminophen/Hydrocodone (Mary Esther/Vicodin) [] Acetaminophen/Oxycodone (Percocet) [] Butorphanol (Ketamine/Stadol) [] Carisoprodol (Soma) [x] Fentanyl [] Hydrocodone [x] Hydromorphone (Dilaudid) [] Marijuana [] Morphine (MS Contin) [x] Oxycodone [] Tramadol (Ultram) [] Zolpidem (Ambien) For CHRONIC Migraine Patients: Does the patient have medication overuse headache? [] YES [x] NO *If YES, the treatment plan will include tapering off the offending medications Does the patient have ? 15 MOTLEY days per month, of which at least 8 must be migraine days? [x] YES [] NO How many migraine days per month is patient experiencing? 31 How long do the migraines last? 24/06 How long has the patient had this diagnosis? 20 years Has patient tried and failed Botox? [] YES [x] NO Will patient be receiving both Botox and Aimovig simultaneously? [x] YES [] NO Will patient be receiving both Aimovig, AJOVY, & Emgality and another monoclonal antibody? [] YES [] NO Past trials AEDs 1. GBP 2. PGB BZDs 3. Midazolam inpt 4. Clonazepam Muscle relaxants 5. Cyclobenzaprine NSAIDs 6. Naproxen 7. Celecoxib 8. Meloxicam 9. Diclofenac Steroids 10. Methylpred Narcotics 11. Fentanyl inpt 12. Oxycodone 13. Hydromorphone Beta blockers 14. Propranolol- we do not have the date for prescription, but he tried this and it failed. TCAs 15. Amitriptyline - we do not have the date for prescription, but he tried this and it failed. SNRIs 16. Venlafaxine- - we do not have the date for prescription, but he tried this and it failed. Procedures ONBs New Health Issues: See HPI New Family History: mother with migraine Past Medical History: Diagnosis Date ??? Anxiety 04/09/2017 ??? Atrial fibrillation 04/09/2017 History of ablation attempt x 2 [facility] ??? Atypical chest pain 04/09/2017 ??? Bilateral foot pain 12/18/2016 ??? Bipolar II disorder 04/09/2017 ??? Cardiomyopathy 04/09/2017 Per [facility] referral, based possibly on nuclear stress test (details unknown) ??? Hallux rigidus of right foot 11/11/2018 ??? Neck pain 09/19/2020 ??? S/P Left cartiva for hallux rigidus 08/08/2017 Dr. Burns 04/23/2017 Past Surgical History: Procedure Laterality Date ??? PRO HALLUX RIGIDUS W/CHEILECTOMY 1ST MP JT W/IMPLT Left 08/08/2017 CORRECTION HALLUX RIGIDUS, W IMPLANT (WRVU 8.01) performed by Grabiel Burns MD at [facility] MAIN OR ??? XR FLUORO INJECTION DRAINAGE JOINT SM RIGHT Right 11/11/2018 XR Fluoro Guided Joint Injection Small Right 11/11/2018 [facility] RAD XRAY Studies to Review: see HPI Outpatient Medications Marked as Taking for the 03/12/22 encounter (Office Visit) with Ayush Warner MD Medication Sig Dispense Refill ??? valACYclovir (VALTREX) 500 mg Tablet Take 500 mg by mouth as needed. 0 ??? clonazePAM (KLONOPIN) 1 mg Tablet Take 1 mg by mouth as needed. 0 ??? diclofenac (CATAFLAM) 50 mg Tablet Take 50 mg by mouth as needed. 0 No Known Allergies REVIEW OF SYSTEMS: See HPI Physical Examination: VS BP 143/81 Pulse 61 Wt 74.8 kg (165 lb) BMI 22.38 kg/m?? General: Normal skin, musculoskeletal Neurological: Normal mentation, coordination, gait Impression & plan: 1. Chronic migraine without aura, with intractable migraine, so stated, with status migrainosus 2. Abnormal MRA, brain In favor of chronic migraine: photophonophobia, hx of nausea, mom with migraine, comorbid depression/anxiety, bilateral L>R In favor of cervicogenic, neck involvement Against cervicogenic: no neck trigger This patient meets the FDA criteria for Chronic Migraine, with headache at least 15 days per month, at least 4 hours per day (his are continuous). He has unsuccessfully tried at least 16 medications, and has had lack of success with each of the big three anti-migraine prevention categories, antidepressants, anti-epilepsy drugs, and antihypertensives. Options for the chronic migraine are MABs or BTX. Given the syncope, I will start him with galcanezumab. We can consider BTX if galca fails. We have few options if this is cervicogenic, because of the syncope. Cervical MBBs can be diagnosticfor cervicogenic headache but do not appear feasible. He had an abnormal MRA with a recommendation for CTA. I will order that. He was seen by Dr. Ballard for the syncope, and Dr. Ballard recommended a QSART. I will try to schedule Mr Mathis with Dr. Ballard for that procedure. Follow-up: 4 mos Total time spent today 03-12-22 on this patient's care: 60 minutes Ayush Warner MD documented in this encounter Plan of Treatment Upcoming Encounters Date Type Specialty Care Team Description 07/02/2022 Office Visit Neurology Candi Sanchez, CORPORATE TRAINING MANAGER [facility] [address] [place] [address] (Wo rk) Scheduled Orders Name Type Priority Associated Diagnoses Order S chedule CT Angiogram [place] of Imaging Routine Chronic migraine w ithout Expected: 03/19/2022 [place] aura, with intractable (Appr oximate), migraine, so stated, Expires : 09/18/2022 with status migr ainosus Abnormal MRA, brain documented as of this encounter Visit Diagnoses Diagnosis Chronic migraine without aura, with intr actable migraine, so stated, with status migrainosus Abnormal MRA, brain Nonspecific (abnormal) findings on radio logical and other examination of skull and head documented in this encounter Care Teams Certified Medical Aide Relationship Specialty Start Date End Date Markus Ascencio MD PCP - General Internal Medicine 04/09/17 [address] [place] [address] documented as of this encounter
--- OUTSIDE RECORDS SUMMARY | 2022-06-11 16:18 | XMS_ITS | Encounter Summary ---
:1960 Author Organization [facility] [place] [address] Care Team Providers Name Role Phone Markus Ascencio MD Primary Care Provider Reason for Referral Consultation (Routine) - Closed Specialty Diagnoses / Procedures Referred By Contact Refer red To Contact Neurology Diagnoses Bilateral occipital neuralgia Miriam Burns MD [facility] Neurology [address] [place] [address] [place] [address] Referral ID Status Reason Start Date Expiration Date Visits V isits Requested Authorized [id number] Closed Consult, 10/16/2021 10/16/2022 1 1 Test & Treat Consultation (Routine) - Closed Specialty Diagnoses / Procedures Referred By Contact Refer red To Contact Orthopaedics Diagnoses Carpal tunnel syndrome on left Ulnar neuropathy at elbow of left upper extremity Miriam Burns MD Warhold, Lance G, MD [facility] DR NEUROLOGY DEPT ORTHOPAEDIC [place] [address] [place] [address] Fax: Referral ID Status Reason Start Date Expiration Date Visits V isits Requested Authorized [id number] Closed Consult, 10/11/2021 10/11/2022 1 1 Test & Treat Reason for Visit Consultation (Routine) - Closed Specialty Diagnoses / Procedures Referred By Contact Refer red To Contact Neurology Diagnoses Neuropathic pain Rosa Isela Villalba MD Lawson, Victoria H, MD [facility] Marv R [facility] [address] [place] [address] [place] [address] Fax: Referral ID Status Reason Start Date Expiration Date Visits V isits Requested Authorized [id number] Closed Consult, 05/25/2021 05/25/2022 1 1 Test & Treat Encounter Details Date Type Department Care Team Description 10/11/2021 Procedure visit Neurology at [facility] Miriam Burns Carpal tunnel syndrome on le ft; [facility] MD Crystal Ulnar neuropathy at elbow of left upper extremity; Drive [facility] [place] [address] NEUROLOGY DEPT [phone] [place], [place] [address] Social History Tobacco Use Types Packs/Day Years [...] documented as of this encounter Progress Notes Miriam Burns MD - 10/11/2021 9:00 AM EST [facility] NEUROPHYSIOLOGY LABORATORY NERVE CONDUCTION AND ELECTROMYOGRAPHY EVALUATION - 10/11/21 BRIEF HISTORY: Viet Mathis is a 61 y.o. adult referred for electrodiagnostic evaluation of left arm by: Rosa Isela Villalba MD [facility] [place] [address]: Report scanned into ED: 10/11/21 The history is of: 61 with ongoing radicular pain, some mild ?left arm weakness and on MRI some foraminal multi-level and also spinal stenosis. Has normal exam with no weakness nor UMN or LMN signs. He is experiencing worsening of his ON. Allodynia of the scalp. He reports 3 sets of symptoms with a diagnosis of cervicogenic headache. The first is a set of flu-like spells where he develops body aches, lethargy and difficulties functioning. Is noticed the symptoms on and off for the past 2 khalil his last episode occurring in September 2020. The symptoms have remitted the recent past. The second set relates to cervical spondylosis as assessed from the MRI of July 23, 2020. He was noted to have moderate to severe bilateral neuroforaminal stenosis multiple levels but found that he achieved a good result undergoing sickle therapy through the spine therapists. The third set relates to occipital neuralgia. He had seen Dr. King in the past for this and underwent an injection with good result. He describes it as unremitting pain along the occiput bilaterally associated with the allodynia as noted above. He describes this as radiating forward towards his eyes.This is associated with progressively more intense photophobia associated with nausea and cervical muscle pain. He reports being interested in pursuing the most aggressive of treatment modalities including decompressive surgery. Notes reviewed: Amalia Rubio I reviewed the MRI of the brain from 10/05/2020: No significant findings noted by my independent review. BRIEF EXAMINATION: General evaluation is unrevealing for atrophy, skeletal or foot deformity. Motor testing of distal and proximal muscles was unrevealing for focal weakness. Focussed dermatomal testing was unrevealing. DTRs symmetric. NCS/EMG: The right median SNAP amplitude and conduction velocity is preserved but the left median SNAP reveals mild slowing of the conduction velocity particularly over the short segment. The right ulnar SNAP amplitude and conduction velocity is normal but the left ulnar SNAP duction velocity is mildly slowed with normal amplitudes. The right median motor response amplitude, distal motor latency and conduction velocity is normal but the left median motor response distal motor latency is prolonged. The left ulnar motor response amplitude is also preserved with mildly prolonged distal motor latency and slowing of the ulnar conduction velocity across the elbow. The right ulnar motor response amplitude, distalmotor latency and conduction velocity is normal. The left median and ulnar late response latencies are mildly prolonged but the right median and ulnar late response latencies are normal. Needle EMG of the left upper extremity including the C5 and C8 paraspinal muscles was normal with the exception of some long duration polyphasic motor units noted in the left APB muscle. IMPRESSION: Abnormal study. There is electrodiagnostic evidence of: 1. 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 The study did not support cervical radiculopathy on the left. Clinical and radiologic correlation isrecommended. CLINICAL CORRELATION: We discussed his findings today. I recommended the followin. Referral to hand clinic for assessment of the left median mononeuropathy at the wrist; 2. Wrist splint 3. Counseled regarding positioning and activity modification to address the ulnar neuropathy at the left elbow 4. MOTLEY management - interested in decompression surgery of his ON; I will place a re referral to the headache clinic for further investigation of etiology and management options. MIRIAM BURNS MD Neuromuscular Attending documented in this encounter Plan of Treatment Upcoming Encounters Date Type Specialty Care Team Description 07/02/2022 Office Visit Neurology Candi Sanchez, ASSISTANT BOOKKEEPER [facility] [place] [address] (Wo rk) Scheduled Referrals Name Type Priority Associated Diagnoses Order S chedule Referral to Hand Outpatient Referral Routine Carpal tunnel Ord ered: Clinic syndrome on left 10/11/2021 Ulnar neuropathy at elbow of left upper extremity Referral to Outpatient Referral Routine Bilateral occipital O rdered: Neurology neuralgia 10/16/2021 documented as of this encounter Visit Diagnoses Diagnosis Carpal tunnel syndrome on left Carpal tunnel syndrome Ulnar neuropathy at elbow of left upper extremity Bilateral occipital neuralgia Other syndromes affecting cervical regio n documented in this encounter Care Teams Salesperson Stereo Equipment Relationship Specialty Start Date End Date Markus Ascencio MD PCP - General Internal Medicine 04/09/17 [address] [place] [address] documented as of this encounter
--- OUTSIDE RECORDS SUMMARY | 2022-06-11 16:18 | XMS_ITS | Encounter Summary ---
:1960 Author Organization [facility] [place] [address] Care Team Providers Name Role Phone Markus Ascencio MD Primary Care Provider Reason for Visit Reason Onset Date Comments Appointment 12/29/2020 Encounter Details Date Type Department Care Team Description 12/29/2020 Telephone Neurology at [facility] Susie Fontanez MD Appointment [address] [place] [address] NEUROLOGY DEPT [phone] [place], [place] [address] (Wo rk) Social History Tobacco [...] this encounter Miscellaneous Notes Telephone Encounter - Mi Tipton - 12/30/2020 3:42 PM EST Patient has concerns about ONB procedure (please see Note). He decided to pursue further research before scheduling an ONB. He also really would like to have Dr. Fontanez perform this procedure. I sent a Secure Chat to both Dr. Fontanez and Inga Peguero to make them aware of the patient's concerns. Telephone Encounter - Mi Tipton - 12/30/2020 3:41 PM EST Ashia Stark: I am ready to go with this pretty much anytime. My , and local driver, however, will not be able to transport me to [facility] after Jan.07. Outside that, why don???t you propose a time? ?? My preference would be for Dr. Fontanez. ?? We tried a medial branch block in October (with Dr. Rojas.). This resulted in a vasovagal reflex which stopped the procedure. I am concerned that we could run into the same thing again - unless there janis work-around. Increased sedation? ?? I am home now if you would like to discuss any of this. [phone]. ?? Thanks for the help, Viet Yañez [place] Telephone Encounter - Mi Tipton - 12/29/2020 9:03 AM EST Please schedule patient for an ONB with either Huseyin or Medrea. JARVIS on home phone and sent message to his [facility] 1st attempt to reach patient documented in this encounter Plan of Treatment Upcoming Encounters Date Type Specialty Care Team Description 07/02/2022 Office Visit Neurology Candi Sanchez, RN HEMODIALYSIS CHARGE [facility] [address] [place], [place] [address] (Wo rk) documented as of this encounter Visit Diagnoses Not on filedocumented in this encounter Care Teams Polymerization Kettle Operator Relationship Specialty Start Date End Date Markus Ascencio MD PCP - General Internal Medicine 04/09/17 [address] [place] [address] documented as of this encounter
--- OUTSIDE RECORDS SUMMARY | 2022-06-11 16:18 | XMS_ITS | Encounter Summary ---
:1960 Author Organization [facility] [place] [address] Care Team Providers Name Role Phone Markus Ascencio MD Primary Care Provider Reason for Visit Reason Onset Date Comments Appointment 11/11/2020 EEG, TTT, MRI, auton omic testing, and f/u Encounter Details Date Type Department Care Team Description 11/11/2020 Telephone Neurology at [facility] Miriam Adame, Appointment (EEG, TTT, [facility] MD MRI, autonomic Drive [facility] testing, and f/u) [place] [address] NEUROLOGY DEPT [place], [place] [address] (Wo rk) Social History Tobacco [...] this encounter Miscellaneous Notes Telephone Encounter - Palak Medina - 11/11/2020 11:15 AM EST I called in attempt to schedule this patient for the testing that Dr. Adame has asked for. Please see the 08/16/2020 Telehealth visit follow up instructions. documented in this encounter Plan of Treatment Upcoming Encounters Date Type Specialty Care Team Description 07/02/2022 Office Visit Neurology Candi Sanchez, ARMHOLE RAISER LOCKSTITCH [facility] [address] [place], [place] [address] (Wo rk) documented as of this encounter Visit Diagnoses Not on filedocumented in this encounter Care Teams Nuclear Security Officer Relationship Specialty Start Date End Date Markus Ascencio MD PCP - General Internal Medicine 04/09/17 [address] [place] [address] documented as of this encounter
--- OUTSIDE RECORDS SUMMARY | 2022-06-11 16:18 | XMS_ITS | Encounter Summary ---
:1960 Author Organization [place] [place] [address] Care Team Providers Name Role Phone Markus Ascencio MD Primary Care Provider Reason for Referral Diagnostic Test (Routine) - Closed Specialty Diagnoses / Procedures Referred By Contact Refer red To Contact Radiology Diagnoses Bilateral hand pain Neck pain Karan Wen [facility] Rad Mri Procedures MRI Cervical Spine wo Contrast (Generic) [place] [address] [place] [address] Referral ID Status Reason Start Date Expiration Date Visits V isits Requested Authorized [id number] Closed Specialty 12/04/2021 06/03/2023 1 1 Service Requested Reason for Visit Diagnostic Test (Routine) - Closed Specialty Diagnoses / Procedures Referred By Contact Refer red To Contact Radiology Diagnoses Bilateral hand pain Neck pain Karan Wen [facility] Rad Mri Procedures MRI Cervical Spine wo Contrast ([place]) [place] [address] [place] [address] Referral ID Status Reason Start Date Expiration Date Visits V isits Requested Authorized [id number] Closed Specialty 12/04/2021 06/03/2023 1 1 Service Requested Encounter Details Date Type Department Care Team Description 03/19/2022 Hospital Encounter [place] [facility] Behzad, Bilateral hand pain; [facility] Karan Fair Jr., Neck pa in Drive CAROLINE Car [facility] [address] TAPPAN [phone] [place] [address] Social History Tobacco Use Types Packs/Day Years [...] PM EDT documented as of this encounter Medications at Time of Discharge Medication Sig Dispensed Refills Start Date End Date galcanezumab-gnlm Inject 1 mL 1 mL 11 03/12/2022 (Emgality Syringe) 120 subcutaneously every 30 mg/mL days. SyringeIndications: Chronic migraine without aura, with intractable migraine, so stated, with status migrainosus valACYclovir (VALTREX) Take 500 mg by mouth as 0 09/15/2018 500 mg Tablet needed. clonazePAM (KLONOPIN) 1 Take 1 mg by mouth as 0 0 04/22/2017 mg Tablet needed. diclofenac (CATAFLAM) Take 50 mg by mouth 0 04/22 50 mg Tablet daily. documented as of this encounter Plan of Treatment Upcoming Encounters Date Type Specialty Care Team Description 07/02/2022 Office Visit Neurology Candi Sanchez, COUNTER CLERK [employer] [facility] [place] [address] [place] [address] (Wo rk) documented as of this encounter Procedures Procedure Name Priority Date/Time Associated Diagnosis Comme nts MRI CERVICAL SPINE Routine 03/19/2022 2:47 PM Bilateral hand pain Results for this WO CONTRAST EDT Neck pain procedure are i n the results section. documented in this encounter Results MRI Cervical Spine wo [...] who have questions please contact the health companion caregiver that requested your imaging first. ? Electronically signed by: Karen Cameron MD, [facility] ([phone]), at 03/19/2022 5:03 PM Narrative 03/19/2022 5:03 [...] ho have questions please contact the health companion caregiver that requested your imaging first. Electronically signed by: Karen Cameron MD, [facility] ([phone]), at 03/19/2022 5:03 PM Karan Wen Jr., MD IMG MRI ORDERABLES documented in this encounter Visit Diagnoses Diagnosis Bilateral hand pain Pain in limb Neck pain Cervicalgia documented in this encounter Care Teams Academic Affairs Director Relationship Specialty Start Date End Date Markus Ascencio MD PCP - General Internal Medicine 04/09/17 [address] [place] [address] documented as of this encounter
--- OUTSIDE RECORDS SUMMARY | 2022-06-11 16:18 | XMS_ITS | Encounter Summary ---
:1960 [place] [address] Care Team Providers Name Role Phone Markus Ascencio MD Primary Care Provider Encounter Details Date Type Department Care Team Description 09/08/2021 Telephone Neurology at [facility] Rahul King MD [address] [place] [address] [place] [address] [phone] (Wo rk) Social History Tobacco Use Types [...] Notes Telephone Encounter - Mi Tipton - 09/08/2021 3:49 PM EDT Patient was originally scheduled for his next ONB with Dr. King on 11.16.2021 @ 3:[address] King is leaving the Neurology Headache clinic on 11.10.2021. I was able to schedule the ONB at 3:30 pm with Candi Sanchez APRN. Left message on his cell and sent a message to his [facility] documented in this encounter Plan of Treatment Upcoming Encounters Date Type Specialty Care Team Description 07/02/2022 Office Visit Neurology Candi Sanchez, CRIS [facility] er [address] [place], [place] [address] (Wo rk) documented as of this encounter Visit Diagnoses Not on filedocumented in this encounter Care Teams Cloth Examiner Relationship Specialty Start Date End Date Markus Ascencio MD PCP - General Internal Medicine 04/09/17 [address] [place] [address] documented as of this encounter
--- OUTSIDE RECORDS SUMMARY | 2022-06-11 16:18 | XMS_ITS | Encounter Summary ---
:1960 Author Organization [place] [address] Care Team Providers Name Role Phone Markus Ascencio MD Primary Care Provider Reason for Visit Reason Onset Date Comments TeleHealth 05/03/2021 Encounter Details Date Type Department Care Team Description 05/03/2021 Telephone Neurology at [facility] Salbador Balladr MD [facility] [place] [address] Neurology [phone] [place], [place] [address] (Wo rk) Social History Tobacco [...] this encounter Miscellaneous Notes Telephone Encounter - Susie Espinoza RN - 05/03/2021 2:23 PM EDT Unable to reach this patient by phone to review medications and allergies prior to their upcoming tele-appointment with the Neurology provider. No message left. documented in this encounter Plan of Treatment Upcoming Encounters Date Type Specialty Care Team Description 07/02/2022 Office Visit Neurology Candi Sanchez, POISER [facility] [address] [place], [place] [address] (Wo rk) documented as of this encounter Visit Diagnoses Not on filedocumented in this encounter Care Teams Member Certification Manager Relationship Specialty Start Date End Date Markus Ascencio MD PCP - General Internal Medicine 04/09/17 [address] [place] [address] documented as of this encounter
--- OUTSIDE RECORDS SUMMARY | 2022-06-11 16:18 | XMS_ITS | Encounter Summary ---
:1960 Author Organization [facility] [place] [address] Care Team Providers Name Role Phone Markus Ascencio MD Primary Care Provider Reason for Visit Reason Onset Date Comments Appointment 03/20/2021 Encounter Details Date Type Department Care Team Description 03/20/2021 Telephone Neurology at [facility] Rosa Isela Villalba MD Appointment [address] [place] [address] NEUROLOGY [phone] [place], [place] [address] (Wo rk) Social History Tobacco [...] Notes Telephone Encounter - Izabella Bourne - 03/20/2021 4:34 PM EDT ----- Message from Inga Peguero RN sent at 03/20/2021 3:31 PM EDT ----- Regarding: FW:Occipital Nerve Block in Headache Clinic Contact: He needs to be scheduled with his provider, Dr Villalba ----- Message ----- From: Xuan Mireles RN Sent: 03/20/2021 3:24 PM EDT To: Inga Peguero, LYNN Subject: FW:Occipital Nerve Block in Headache Clinic ----- Message ----- From: Izabella Bourne Sent: 03/20/2021 3:20 PM EDT To: [facility] Neurology Headache Nurse Subject: FW:Occipital Nerve Block in Headache Clinic Is this complete? ----- Message ----- From: Viet Dias Sent: 01/16/2021 5:17 PM EDT To: [facility] Neurology [place] Subject: RE:Occipital Nerve Block in Headache Clinic Ashia Lopez: Thank you for the information. Would it be possible to speak to a doctor, any doctor, about an Occipital Nerve Block? And maybe also about why my head hurts so much? Thank you, Viet Dias [place], [place] [phone] Telephone Encounter - Izabella Bourne - 03/20/2021 4:34 PM EDT 1st attempt to contact patient Left message on patient's home phone. Scheduling Instructions Provider: Charlie Villalba Visit Type (paste KAIA Instructions or manually enter): FUV Appt Note: follow up Additional Info Needed: documented in this encounter Plan of Treatment Upcoming Encounters Date Type Specialty Care Team Description 07/02/2022 Office Visit Neurology Candi Sanchez, BISCUITWARE BRUSHER [facility] [address] [place], [place] [address] (Wo rk) documented as of this encounter Visit Diagnoses Not on filedocumented in this encounter Care Teams Plate Embosser Relationship Specialty Start Date End Date Markus Ascencio MD PCP - General Internal Medicine 04/09/17 [address] [place] [address] documented as of this encounter
--- OUTSIDE RECORDS SUMMARY | 2022-06-11 16:18 | XMS_ITS | Encounter Summary ---
:1960 Author Organization [facility] [place] [address] Care Team Providers Name Role Phone Markus Ascencio MD Primary Care Provider Encounter Details Date Type Department Care Team Description 11/21/2021 Hospital Encounter XRay at [facility] Behzad, Bilateral hand pain; [address] Karan Fair Jr., [place] [address] [facility] [phone] [facility] [place] [address] Social History Tobacco Use Types Packs/Day Years [...] Sig Dispensed Refills Start Date End Date valACYclovir (VALTREX) Take 500 mg by 0 8 500 mg Tablet mouth as needed. clonazePAM (KLONOPIN) 1 Take 1 mg by mouth 0 04/02 mg Tablet as needed. diclofenac (CATAFLAM) 50 Take 50 mg by mouth 0 mg Tablet daily. celecoxib (CeleBREX) 100 Take 1 capsule by 60 capsule 3 10/0203/12/2022 mg CapsuleIndications: mouth 2 times Cervicogenic headache daily. documented as of this encounter Plan of Treatment Upcoming Encounters Date Type Specialty Care Team Description 07/02/2022 Office Visit Neurology Candi Sanchez, POOL LIFEGUARD [facility] [address] [place], [place] [address] (Wo rk) documented as of this encounter Procedures Procedure Name Priority Date/Time Associated Diagnosis Comme nts XR WRIST 2 VIEWS Routine 11/21/2021 12:38 PM Bilateral h and pain Results for this BILAT EST Bilateral wrist pain procedu re are in the results section. documented in this encounter Results XR Wrist 2 views [...] who have questions please contact the health in home caregiver that requested your imaging first. ? Narrative 11/21/2021 3:23 PM EST EXAMINATION: XR [...] ho have questions please contact the health in home caregiver that requested your imaging first. Electronically signed by: Kaylee Whipple MD, [facility] ([phone]), at 11/21/2021 3:23 PM Karan Wen Jr., MD IMG DX ORDERABLES documented in this encounter Visit Diagnoses Diagnosis Bilateral hand pain Pain in limb Bilateral wrist pain Pain in joint, forearm documented in this encounter Care Teams Company Driver Relationship Specialty Start Date End Date Markus Ascencio MD PCP - General Internal Medicine 04/09/17 [address] [place] [address] documented as of this encounter
--- OUTSIDE RECORDS SUMMARY | 2022-06-11 16:18 | XMS_ITS | Encounter Summary ---
:1960 Author Organization [facility] [place] [address] Care Team Providers Name Role Phone Markus Ascencio MD Primary Care Provider Encounter Details Date Type Department Care Team Description 11/16/2021 Procedure visit Neurology at [facility] [place] [address] CRIS Diez [address] [facility] [address] [place] [address] [phone] Social History Tobacco Use Types Packs/Day Years [...] PM EDT documented as of this encounter Procedure Notes Candi Sanchez APRN - 11/16/2021 3:30 PM EST Procedure Note Procedure: Bilateral Greater Occipital Nerve Blocks Indication: Headache with occipital tenderness Consent: Indication, risks, benefits, and alternatives discussed with patient, including risk of bleeding, infection, permanent numbness, and medication reaction. Written consent signed by patient - 05/04/21 Location: The greater occipital nerve was located by first palpating the mastoid and midline occipital ridge. The nerve was palpated at 2/3 the distance to the occipital ridge. It was coincident with maximal tenderness Medication: 50/50 mixture of 1% lidocaine and 0.25% bupivacaine 2 1/2cc in each syringe with 1/2cc 40mg/ml depomedrol Technique: The area was cleansed with 2 alcohol swabs while using clear gloves. Using a 3 cc syringeand a 30 guage 1/2 inch needle, 3 cc of the medication mixture was injected into multiple tissue planes in the area around each greater occipital nerve. Prior to each injection the plunger was drawn back to ensure that the needle was not in a blood vessel. The patient tolerated the procedure well. Complications: None Blood loss: <1 cc MARGARITA Gutierrez APRN [facility] Neurology, Headache Clinic documented in this encounter Plan of Treatment Upcoming Encounters Date Type Specialty Care Team Description 07/02/2022 Office Visit Neurology Candi Sanchez APRN [facility] [address] [place], [place] [address] (Wo rk) Scheduled Orders Name Type Priority Associated Diagnoses Order S chedule NERVE BLOCK - Neurology Routine One Time for 1 OCCIPITAL Occurrences sta rting 11/16/2021 unti l 11/16/2021 documented as of this encounter Visit Diagnoses Diagnosis Cervicogenic headache Headache documented in this encounter Administered Medications Inactive Administered Medications - up to 3 most recent administrations Medication Order MAR Action Action Date Dose Rate Site BUpivacaine (pf) (Marcaine) (2.5 Given 11/16/2021 3:43 PM EST 7. 5 mg mg/mL) 0.25% injection 7.5 mg 7.5 mg, Subcutaneous, ONCE, 1 dose, On Denisha 11/16/21 at 1545, Routine lidocaine (pf) (Xylocaine) (10 mg/mL) 1% Given 11/16/2021 3:44 P M EST 30 mg injection 30 mg 30 mg, Subcutaneous, ONCE, 1 dose, On Denisha 11/16/21 at 1545, Routine methylPREDNISolone acetate (DEPO-Medrol) (40 Given 1 3:44 PM EST 40 mg mg/mL) injection 40 mg 40 mg, Intramuscular, ONCE, 1 dose, On Denisha 11/16/21 at 1600, Routine documented in this encounter Care Teams Culinary Worker Relationship Specialty Start Date End Date Markus Ascencio MD PCP - General Internal Medicine 04/09/17 [address] [place] [address] documented as of this encounter
--- OUTSIDE RECORDS SUMMARY | 2022-06-11 16:18 | XMS_ITS | Encounter Summary ---
:1960 Author Organization [place] [address] Care Team Providers Name Role Phone Markus Ascencio MD Primary Care Provider Reason for Visit Consultation (Routine) - Closed Specialty Diagnoses / Procedures Referred By Contact Refer red To Contact Neurology Diagnoses Vasovagal syncope autonomic testing Miriam Adame MD Robbins, Nathaniel M, MD [facility] NEUROLOGY DEPT Neurology [place], [place] [id number] [place] [phone] Fax: Referral ID Status Reason Start Date Expiration Date Visits V isits Requested Authorized [id number] Closed Consult, 12/26/2020 12/26/2021 1 1 Test & Treat Encounter Details Date Type Department Care Team Description 03/08/2021 Office Visit [place]rology [place] [facility] Salbador Ballard Vasovagal syncope; [facility] MD Rg 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 ; [facility] [place] [address] Neurology [phone] [place] [address] (Wo rk) Social History Tobacco Use Types [...] Sign Reading Time Taken Comments Blood Pressure 152/74 03/08/2021 2:47 PM EDT Pulse 59 03/08/2021 2:47 PM EDT Temperature - - Respiratory Rate - - Oxygen Saturation - - Inhaled Oxygen Concentration - - Weight 76.2 kg (168 lb) 03/08/2021 2:47 PM EDT Height 182.9 cm (6') 03/08/2021 2:47 PM EDT REPORTED Body Mass Index 22.78 03/08/2021 2:47 PM EDT documented in this encounter Progress Notes Salbador Ballard MD - 03/08/2021 2:45 PM EDT Viet Mathis is a 61 y.o. man who is a patient of Dr. 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 I am seeing him in my capacity as an autonomic specialist. He arrives alone. He is an excellent historian. In terms of vasovagal syncope, he has passed out his entire life. The trigger is almost always needle related. Sometimes it is an IV or shot. One time he passed out even thinking about going to get a cervical injection. He does endorse some orthostatic intolerance. He thinks it is worse than his typical but he has never passed out with standing. He believes this is been present approximately 6 or 8 months. In addition he has significant arthritis. He experiences neck pain that is significant and pretty bothersome. He was supposed to have a greater occipital injection but apparently fainted and it was canceled and never rescheduled. It mostly affects the left side of the neck and the head. He has had pain 24 hours a day for the last 10 years. He also has issues with sweating. He thinks this is been present approximately 10 years. There are several issues with sweating. First, he reports gustatory sweating. This occurs approximately 75% of meals. Interestingly it only affects the left side of the head. He has never had on the right. He doesnot think the trunk is involved. Second, he has excessively cold and sweaty feet. His socks can be soaked through at times even though his feet feel cold. Third, he has been experiencing night sweats for several years. He has lost 10 pounds. He does not feel hungry, but part of that is because he feels uncomfortable and has to change his clothes due to his facial sweating, or sometimes feels embarrassed. He has found that smoking cannabis at night eliminates the night sweating. He does not think it affects the gustatory sweating. He has never tried any other treatments. He also has an issue with episodic fatigue. On an irregular basis perhaps 13 times last year and going on for the last 1 to 2 years lasting 3 to 4 days at a time with sudden onset and offset he experiences muscle aches and excessive fatigue. This does not really get better with sleeping or naps. He sits on the couch and cannot really do anything. He has a very keen observer and has noticed that preceding these episodes there is a change in his cardiac physiology. He is an avid athlete. He often doesa test with an eponymous name that I cannot remember in which he takes his heart rate lying down andthen stands up and sees how long it takes for his heart rate come back to normal. His typical heart rate might be 60 and go up to 72 with standing intake about a minute to get back to 62. For 1 to 2 days prior to the onset of this episodic fatigue episodes this physiology changes and his heart rate does not get back to normal. These episodes abruptly resolved. He has had depression in the past, and sometimes feels down due to his physical function during these episodes but it feels much different and he does not think he is depressed at those times. He denies sicca symptoms. Stool and urination are normal. His exam is only notable for a mobile soft mass in the left retroauricular area. There is some superficial scabbing. Apparently he often lies applying pressure to this area which hurts but also feels good. He has showed other doctors this and no one knows what it is, and he thinks he had MRIs as well. In summary, this is a 61-year-old man with reflex neurally mediated syncope; and unusual abnormal unilateral gustatory sweating syndrome; more generalized hyperhidrosis; nocturnal hyperhidrosis; and unexplained episod described above. I had a long discussion with the patient about vasovagal syncope. The pathophysiology is presumed jeanette sympathoadrenal imbalance, and a top-down mediated abnormal reflex, though in truth little is known about this condition. I reassured him about the benign nature. I taught him about counter maneuvers if he feels it coming on. We discussed various prophylactic treatments but ultimately he is not interested. We had a long discussion about his sweating syndromes. I think it is reasonable to bring him back for QSART. Hyperhidrosis is often compensatory though not always. The unilateral nature of his gustatory facial syndrome is unusual, and could be consistent with prior nerve damage though often these are idiopathic. I discussed treatment such as scopolamine patch, amitriptyline, or more invasive treatment such as sympathetic ganglionectomy and Botox. He will think about this. Meanwhile I asked him to please contact his doctor given his report of nocturnal sweating and weightloss. He tells me he has not told Dr. Ascencio yet and has had no work-up. I think it is important to rule out connective tissue disease and malignancy, though he appears quite healthy and well muscled and continues to exercise in between his paroxysmal episodes, so I have less concern . I will set him up for telehealth to review the autonomic testing and we will go from there. Thank you very much was consultation. We spent 60 minutes in consultation. Salbador Ballard MD 03/08/2021 Maintenance Planning Clerk General Neurology and Clinical Neurophysiology [facility] Department of Neurology documented in this encounter Plan of Treatment Upcoming Encounters Date Type Specialty Care Team Description 07/02/2022 Office Visit Neurology Candi Sanchez, NET MENDER [facility] [address] [place] [address] (Wo rk) Scheduled Referrals Name Type Priority Associated Diagnoses Order S chedule Referral to Outpatient Referral Routine Vasovagal syncope Ord ered: Neurology 12/26/2020 documented as of this encounter Visit Diagnoses Diagnosis Vasovagal syncope Syncope and collapse 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
--- OUTSIDE RECORDS SUMMARY | 2022-06-11 16:18 | XMS_ITS | Encounter Summary ---
:1960 Author Organization [facility] Address [place] [id number] Care Team Providers Name Role Phone Markus Ascencio MD Primary Care Provider Reason for Referral Routine Exam (Routine) - Closed Specialty Diagnoses / Procedures Referred By Contact Refer red To Contact Diagnoses Cervicogenic headache Rosa Isela Villalba MD Procedures NERVE BLOCK - OCCIPITAL [facility] [place] [address] Referral ID Status Reason Start Date Expiration Date Visits V isits Requested Authorized [id number] Closed Specialty 05/25/2021 05/25/2022 1 1 Service Requested onsultation (Routine) - Closed Specialty Diagnoses / Procedures Referred By Contact Refer red To Contact Neurosurgery Diagnoses Neuropathic pain Rosa Isela Villalba MD [facility] Neurosurgery [address] [place] [address] [phone] [place] [address] Referral ID Status Reason Start Date Expiration Date Visits V isits Requested Authorized [id number] Closed Consult, 05/25/2021 05/25/2022 1 1 Test & Treat onsultation (Routine) - Closed Specialty Diagnoses / Procedures Referred By Contact Refer red To Contact Neurology Diagnoses Neuropathic pain Rosa Isela Villalba MD Lawson, Victoria H, MD [facility] [place] [address] [place] [address] Fax: Referral ID Status Reason Start Date Expiration Date Visits V isits Requested Authorized [id number] Closed Consult, 05/25/2021 05/25/2022 1 1 Test & Treat Encounter Details Date Type Department Care Team Description 05/25/2021 Office Visit Neurology at [facility] Romel Villalba MD Neuropathic pain; Road [facility] Cervicogenic headache [address] [place] [address] [place] [address] [phone] Social History Tobacco Use Types Packs/Day Years [...] Sign Reading Time Taken Comments Blood Pressure 120/70 05/25/2021 1:56 PM EDT Pulse 84 05/25/2021 1:56 PM EDT Temperature - - Respiratory Rate - - Oxygen Saturation - - Inhaled Oxygen Concentration - - Weight 74.4 kg (164 lb) 05/25/2021 1:56 PM EDT Height 182.9 cm (6') 05/25/2021 1:56 PM EDT Body Mass Index 22.24 05/25/2021 1:56 PM EDT documented in this encounter Patient Instructions Patient InstructionsRosa Isela Villalba MD - 05/25/2021 2:00 PM EDT The ongoing diagnosis based on good response to the occipital nerve block is cervicogenic headache. Today we discussed that although your neurologic exam is normal headaches may be related to ongoing neck issues. A referral was made to see if neurosurgery could provide some an opinion on surgery and if this may help with neck pain/cervicogenic headache. We also discussed that you should call back the pain clinic, and ask to be seen again for consideration for other procedures such as cervical epidural steroid injection JHONNY. Additionally we asked for neuro-muscular assessment and NCS/EMG to see if there is evidence of radiculopathy from the ongoing neck changes. This may be helpful with surgery assessment. We discussed that for ONB we will do 0.25% bupivacaine and 1% lidocaine, and we can only consider the steroids on July 20, [address] King as I discussed this with Dr King and generally he willrepeat these again at 12 weeks. You may want to do another anesthetic only block on June 15 2021, and we will also book this as a temporizing measure. We also discussed starting pregabalin 25mg twicedaily in the mean time if the neck pain and headache returns. Follow up on July 20 for 90min new with Dr King and consideration for ONB with steroids then, documented in this encounter Progress Notes Rosa Isela Villalba MD - 05/25/2021 2:00 PM EDT Neurology Headache Clinic Follow-up Patient Name: Viet Mathis Patient ID: Viet Mathis is a 61 y.o. with cardiomyopathy, bipolar disorder type 2, and atrial fibrillation being seen for cervicogenic headache. Background History His neck pain has been particularly bad for the last few months, he cannot identify and provoking situation or event. He has diffuse pain in the neck midline, and this is the entire neck area. ?? The headaches are of 2 types: 1) Occipital pain that is dull and bilateral. This is there 90% of the time. He gets relief if he puts pressure on either side of occipital ridge and he get complete relief for as long there is pressure. He feels like there is inflammation on the occipital ridge and there is daily change in that. There is light and sound sensitivity, and also nausea during the headaches. This occipital pain has been ongoing for 10 years. This has gotten worse in the last year. This pain is constantly there, the onlytime there is relief is when he lays on this wooden block that puts pressure on his occipital headache. He has continuous light sensitivity, and noise sensitivity is present with a bad headache. This occipital pain is moderate 3 x week, lasting 1-2h, and he can calm it down with the block/naproxen andexercise. Headaches do not get worse with physical activity, and these are not pulsatile. ?? 2) The second type happened only /Saturday/Saturday of last week. He had 9 episodes that lasted 15-20min only on the left side. He would feel a sensation in the lower jaw and then this would go up to the top of the head and also move also to the back of the head. He says it felt like a hot brickwas moving across the head. He would describe this as an intense ache. For the last few episodes, 7-8-9 it was less specific and it was the left side of the head. He has not had any since then. He had 4 on , 4 on Saturday, and Saturday he had 1. There was no specific time that they were happening. He did wonder if food was bringing them on, and he stopped eating Saturday. He took [id number] once daily for 3 days, and took naproxen 1000mg daily. Since then he has no other ongoing headaches on the left side. ?? He has these flu spells where he has a lot of fatigue, he cannot exercise and these last 2-4 days.It is a large effort to get off the couch. He has had 7-8 since last March 2020. Initially they thought Lyme disease, but this has been negative. He has no fevers, he has lost a 2-3 lbs in the last fewmonths. He does feel malaise often. ?? He denies jaw claudication except it was sore to chew on the left side with the headaches. He has tenderness to touch everywhere in his scalp commonly, although not know. He denies polymyalgia rheumatica. ?? In April 2020 he was having a lot of swelling of the occipital ridge, and overall it felt less mobile and he could feel like he was foggy and dissociated (unreal) feeling. He had a 7 day course of methylprednisolone 35mg down by 1 pill each day until stopping, which fixed the problem but brought on a flu like episode. ?? Headache Days per month:??30/30 Headache free days per month:?030 Location of pain:??Bilateral and Occipital Quality:??Dull and Ache?? Time of day predilection:??Yes??worse towards end of day, but can be anytime really Worse with movement/routine physical activity:No Prefer to be still:No, only if really bad otherwise prefers a bike ride? Aura:??No First morning headaches:??No Caffeine intake:??Tea??2??units, 7??days per week ?? History of: Fibromyalgia, Interstitial Cystitis, IBS:??No Other Pain Disorder:??No Motion Sickness:??No ?? The patient has the following vascular risk factors:?Hypertension, Dyslipidemia and Age The patient has the following vascular co morbidities:?None ?? Family History of Headaches:??Mother ?? Other Pertinent Details: Systemic or constitutional or infectious symptoms, Secondary risk factors, cancer history, Jaw claudication or other GCA symptoms:??Yes:??, these flu like episodes described above?? Focal Neurologic Symptoms:??No, except numbness in the left hand more to the outside of the hand, goes away with shaking hand. He also gets a feeling of sprays of warm water coming down on the left side of the shoulder into the arm lasting 20 sec. He has had these dysaethesias for 3 months. These episodes are happening daily as well. Thunderclap Headache:??No, these intense episode did build up over 2min, he found the pain quite scary as he could not think about anything during these. Postural or Positional component to headache:??No,?? Headache precipitated by cough, sneeze, bending, lifting, or Valsalva:??No ? Assessment by other Physicians:??Primary Care and Pain Specialist ?? Interval History: At the last visit we did an ONB with steroids 04/27/2021 at patient's request we also used steroids.He tells me that he had great implement and has only minimal discomfort for 3 weeks, and then headaches started coming back. He does not use Lyrica for his pain because of worries over side effects. He asked about hot saw operator solutions to ongoing neck problems such as surgery or procedure in the neck. Medications: Current Outpatient Medications Medication Sig Dispense Refill ??? pregabalin (Lyrica) 25 mg Capsule Take 1 capsule by mouth 2 times daily. (Patient not taking: Reported on 03/08/2021) 60 capsule 3 ??? valACYclovir (VALTREX) 500 mg Tablet Take 500 mg by mouth as needed. 0 ??? clonazePAM (KLONOPIN) 1 mg Tablet Take 1 mg by mouth as needed. 0 ??? diclofenac (CATAFLAM) 50 mg Tablet Take 50 mg by mouth as needed. 0 No current facility-administered medications for this visit. Physical Exam: No data found. .General exam: The patient looked well and was in no acute distress. Dressed appropriately. The patient is alert, interactive, and has appropriate mood and congruent affect. The patient is able to recall the details of their medical history without difficulty. HEENT: Normocephalic, atraumatic. No rashes or other skin lesions noted on the head or face. Good active range of motion of the neck. Decreased size of masses on occipital area compared to last visit, 1X1cm on both of DELTA. Neurologic Examination: Mental status, Speech and Language: Normal in ordinary conversation. Cranial nerves: Pupils are equal and round. Extraocular movements are intact. No facial asymmetry orweakness. Tongue midline and moves normal. Motor Examination: No focal weakness in any dermatome Sensation: normal to pin prick in all dermatomes Reflexes 2+ throughout except right brachio-radialis 1+, negative Cross bilaterally, flexor plantar responses. Coordination: No evidence of any ataxia. Labs: No results found for this or any previous visit (from the past 24 hour(s)). Diagnostic Tests and Imaging: MRI:??Cervical with and without contrast July 2020 ?- Findings at individual levels: C2-C3: Left worse than right facet arthropathy contributes to mild to moderate left neural foraminal narrowing. C3-C4: Posterior disc osteophyte complex indents the ventral thecal sac contributing to mild canal narrowing. Facet arthropathy with joint effusion on the left. Left-sided uncovertebral osteophytes produce severe left and mild to moderate right neural foraminal narrowing. C4-C5: Posterior disc osteophyte complex indents the ventral thecal sac contributing to mild canal narrowing. Uncovertebral and facet arthropathy produce severe left and mild to moderate right neural foraminal narrowing. C5-C6: Posterior disc osteophyte complex and inward buckling of ligamentum flavum produce moderate canal narrowing. Facet and uncovertebral arthropathy produce moderate to severe neural foraminal stenosis. C6-C7: Posterior disc osteophyte complex contributes to mild canal narrowing. Uncovertebral and facet arthropathy produce moderate neural foraminal stenosis. C7-T1: No canal stenosis. Facet arthropathy contributes to mild left and minimal right neural foraminal narrowing. ?? IMPRESSION No significant change in canal stenosis with flexion. No definite cord signal abnormality. Changes of cervical spondylosis as above. Moderate canal stenosis at C5-6. Severe left C4-5 and moderate to severe bilateral C5-6 neural foraminal Stenosis. Assessment and Plan: Viet Mathis is a 61 y.o. with cardiomyopathy, bipolar disorder type 2, and atrial fibrillation being seen for cervicogenic headache. ?? Today we discussed that neurologic exam is normal but headaches may be related to ongoing neck issues. In addition to arthritis he has moderate spinal stenosis at C5-6 but no long tract signs of compromise, and he has foraminal stenosis on the left at C4-5 and C5-6 but no weakness nor radicular sensory changes that are permanent from this. The neck pain may be related and he would like assessment by neurosurgery and a referral was made to see if they could provide some type of help. We also discussed that he will call back the pain clinic, and he should ask to be seen again for consideration for other procedures such as cervical epidural steroid injection. Additionally we asked for neuro-muscular assessment and NCS/EMG to see if there is evidence of radiculopathy from the ongoing neck changes. This may be helpful with surgery assessment. We discussed that for ONB we will do 0.25% bupivacaine and 1% lidocaine, and we can only do the steroids on July 20, [address] King as I discussed this with Dr King and generally he will repeat these again at 12 weeks. He may want to do another anesthetic only block on June 15 2021, and he will also book this as a temporizing measure. We also discussed starting pregabalin 25mg twice daily in the mean time if the neck pain and headache returns. Follow up on July 20 for 90min new with Dr King and consideration for ONB with steroids then, Medications Tried ([x] checked have been tried in the past) Anti-Depressants: SSRI: [] Citalopram (Celexa) [] Escitalopram (Lexapro) [] Fluvoxamine (Luvox) [] Fluoxetine (Prozac) [] Paroxetine (Paxil) [] Sertraline (Zoloft) SNRI: [] Desvenlafaxine (Pristiq/Khedezla) [] Duloxetine (Cymbalta) [] Levomilnacipran (Fetzima) [] Milnacipran (Savella) [] Venlafaxine (Effexor) TCA: [] Amitriptyline (Elavil) [] Amoxapine [] Clomipramine (Anafranil) [] Desipramine (Norpramin) [] Doxepin (Sinequan) [] Imipramine (Tofranil) [] Maprotiline (Ludiomil) [] Nortriptiline (Pamelor) [] Protriptyline (Vivactil) [] Trimipramine (Surmontil) MAOI: [] Phenelzine (Nardil) [] Selegiline (Emsam) [] Tranylcypromine (Parnate) Atypicals: [] Bupropion (Wellbutrin) [] Mirtazapine (Remeron) [] Nefazodone (Serzone) [] Trazodone [] Vilazodone (Viibryd) [] Vortioxetine (Trintellix) Anti-Hypertensives: ALYCE Inhibitors: [] Benazepril (Lotensin) [] Captopril [] Enalapril (Vasotec) [] Fosinopril [] Lisinopril (Prinivil) [] Moexipril [] Perindopril (Aceon) [] Quinapril (Accupril) [] Ramipril (Altace) [] Trandolapril (Mavik) Alpha-1 Blockers [] Doxazosin [] Prazosin [] Tetrazosin Angiotensin II Receptor Blockers: [] Azilsartan (Edarbi) [] Candesartan (Atacand) [] Eprosartan [] Irbesartan (Avapro) [] Losartan (Cozaar) [] Olmesartan (Benicar) [] Telmisartan (Misardis) [] Valsartan (Diovan) Beta Blockers [] Acebutolol (Sectral) [] Atenolol (Tenormin) [] Bisoprolol (Zebeta) [] Metoprolol (Lopressor) [] Nadolol (Cogard) [] Nebivolol (Bystolic) [] Propranolol (Inderal) [] Timolol Calcium Channel Blockers: [] Amlodipine (Norvasc) [] Bepridil (Vascor) [] Diltiazem (Cardiazem) [] Felodipine (Plendil) [] Nicardipine (Cardene) [] Nifedipine (Procardia) [] Nisoldipine (Sular) [] Verapamil Diuretics: [] Furosemide (Lasix) [] Hydrochlorothiazide (Microzide) [] Spironolactone (Aldactone) Carbonic Anhydrase Inhibitors: [] Acetazolamide (Diamox) [] Methazolamide Anti-seizure: [] Carbamazepine (Tegretol) [] Gabapentin (Neurontin) [] Lamotrigine (Lamictal) [] Levetiracetam (Keppra) [] Oxcarbazepine (Trileptal) [] Phenobarbital [] Phenytoin (Dilantin) [] Pregabalin (Lyrica) [] Primidone [] Sodium Valproate (Depakote) [] Topiramate (Topamax) [] Zonisamide (Zonegran) Monoclonal Antibodies: [] Aimovig [] Ajovy [] Emgality Toxins: [] OnabotulinumtoxinA (Botox) Gepants [] Ubrelvy (ubrogepant) [] Nurtec (rimegepant) Ditans - high-affinity 5-HT1F receptor agonist [] Reyvow (lasmiditan) Supplements: [] Butterbur [] Coenzyme Q10 [] Feverfew [] Magnesium [] Melatonin [] Migrelief (B2, mag, feverfew) [] Vitamin B2 (riboflavin) Other: [] Buspirone (Buspar) [] Doxycycline [] Lidocaine patch (Lidoderm) [] Big Piney [] Memantine (Namenda) [] Montelukast (Singulair) [] Naloxone [] Oxygen Triptans oral: [] Almotriptan (Axert) [] Eletriptan (Relpax) [] Frovatriptan (Frova) [] Naratriptan (Amerge) [] Rizatriptan (Maxalt) [] Sumatriptan (Imitrex) [] Sumatriptan/Naproxen (Treximet) [] Zolmitriptan (Zomig) Triptans nasal: [] Sumatriptan (Onzetra) nasal powder [] Sumatriptan (Imitrex) nasal spray [] Sumatriptan (Tosymra) nasal spray [] Zomig nasal spray Triptans injectable: [] Sumatriptan (Imitrex) solution 3 mg, 4 mg, 6 mg Ergotamines oral: [] Ergotamine/caffeine tab (Cafergot) [] Methergine [] Methylsergide (Sansert) Ergotamines nasal: [] Dihydroergotamine nasal spray (Migranal) Ergotamine Injectable: [] Dihydroergotamine solution for injection (DHE-45) Ergotamine suppository: [] Ergotamine/caffeine suppository (Migergot) NSAIDS: [] Aspirin [] Celecoxib (Celebrex) [x] Diclofenac potassium [] Flurbiprofen [x] Ibuprofen (Advil) [] Indomethacin [] Ketoprofen [] Ketorolac (Toradol) [x] Meloxicam (Mobic) [] Nabumetone [x] Naproxen sodium (Aleve) Anti-Histamines: [] Cyproheptadine (Periactin) [] Diphenhydramine (Benadryl) [] Hydroxyzine (Vistaril/Atarax) Anti-emetics: [] Aprepitant (Emend) [] Chlorpromazine (Thorazine) [] Granisetron [] Metoclopramide (Reglan) [] Meclizine (Bonine) [] Ondansetron (Zofran) [] Prochlorperazine (compazine) [] Promethazine (Phenergan) [] Scopolamine patch Muscle relaxers: [] Baclofen (lioresal) [] Cyclobenzaprine (flexeril) [] Metaxalone (skelaxin) [] Methocarbamol (robaxin) [] Tizanidine (zanaflex) Steroids: [] Dexamethasone (Decadron) [] Methylprednisolone (Medrol) [] Prednisone [] Triamcinolone (Kenalog) Procedures: [] Auriculotemporal blocks [] Lumbar puncture [] Occipital nerve blocks [] Sphenopalatine ganglion blocks [] Supraorbital blocks [] Trigger point injections Neuromodulation: [] Cefaly [] nVNS/Gammacore [] Spring TMS [] Nerivio Non-pharmacologic Tx [] Acupuncture [] Acupressure [] Biofeedback [] Academic Affairs Dean [] Cognitive Behavioral Therapy [] Craniosacral therapy [] Massage therapy [] Physical therapy Benzodiazepines: [] Alprazolam (Xanax) [] Chlordiazepoxide (Librium) [] Clonazepam (Klonopin) [] Diazepam (Valium) [] Lorazepam (Ativan) [] Temazepam (Restoril) Combination/Other Analgesics: [] Acetaminophen (Tylenol) [] Acetaminophen/aspirin/caffeine (Excedrin/Pamprin) [] Acetaminophen/caffeine/pyrilamine maleate (Midol) [] Acetaminophen/dichloralphenazone/ isometheptene (Midrin) Opioids/Narcotics/Controlled Substances: [] Acetaminophen/Codeine (Tylenol #3) [] Acetaminophen/Hydrocodone (Dawson/Vicodin) [] Acetaminophen/Oxycodone (Percocet) [] Butalbital/aspirin/caffeine/codeine (Fiorinal with codeine) [] Butalbital/Aspirin/Caffeine (Fiorinal) [] Butalbital/acetaminophen/caffeine (Fioricet) [] Butorphanol (Ketamine/Stadol) [] Carisoprodol (Soma) [] Fentanyl [] Hydrocodone [] Hydromorphone (Dilaudid) [] Marijuana [] Morphine (MS Contin) [] Oxycodone [] Tramadol (Ultram) [] Zolpidem (Ambien) documented in this encounter Procedure Notes Rosa Isela Villalba MD - 05/25/2021 2:00 PM EDT Procedure Note Procedure: Bilateral Greater Occipital [...] mixture of 1% lidocaine and 0.25% bupivacaine Technique: The area was cleansed with 2 [...] Description 07/02/2022 Office Visit Neurology Candi Sanchez, TECHNICAL DOCUMENT WRITER [facility] [address] [place] [address] (Wo rk) Scheduled Orders Name Type Priority Associated Diagnoses Order S chedule NERVE BLOCK - OCCIPITAL Neurology Routine Cervicogenic head ache Ordered: 05/25/2021 Scheduled Referrals Name Type Priority Associated Diagnoses Order S chedule Referral to Neurology Outpatient Referral Routine Neuropathic pain Ordered: 05/25/2021 Referral to Outpatient Referral Routine Neuropathic pain Orde red: Neurosurgery 05/25/2021 documented as of this encounter Visit Diagnoses Diagnosis Neuropathic pain Neuralgia, neuritis, and radiculitis, un specified Cervicogenic headache Headache documented in this encounter Administered Medications Inactive Administered Medications - up to 3 most recent administrations Medication Order MAR Action Action Date Dose Rate Site BUpivacaine (pf) (Marcaine) (2.5 Given 05/25/2021 3:17 PM EDT 7. 5 mg mg/mL) 0.25% injection 7.5 mg 7.5 mg, Subcutaneous, ONCE, 1 dose, On Denisha 05/25/21 at 1545, Routine lidocaine (Xylocaine) 1% (10 mg/mL) injection Given 3:17 PM EDT 30 mg 30 mg 30 mg, Subcutaneous, ONCE, 1 dose, On Denisha 05/25/21 at 1545, Routine documented in this encounter Care Teams Community Reinvestment Act Officer Relationship Specialty Start Date End Date Markus Ascencio MD PCP - General Internal Medicine 04/09/17 [address] [place] [address] documented as of this encounter
--- OUTSIDE RECORDS SUMMARY | 2022-06-11 16:18 | XMS_ITS | Encounter Summary ---
:1960 Author Organization [facility] [place] [address] Care Team Providers Name Role Phone Markus Ascencio MD Primary Care Provider Encounter Details Date Type Department Care Team Description 03/19/2022 Orders Only Neurology at [facility], Ayush Mccoy, [facility] [address] without aura, with [address] [facility] intractable migraine, [place] [phone] fritz stated, with status [phone] [place], [place] [address] migrainosus Social History Tobacco Use Types Packs/Day Years [...] Description 07/02/2022 Office Visit Neurology Candi Sanchez, ELECTRICAL ENGINEERING DRAFTSPERSON [facility] [address] [place] [address] (Wo rk) Scheduled Orders Name Type Priority Associated Diagnoses Order S chedule Basic Metabolic Panel Lab Routine Chronic migraine [facility] Expected: 03/19/2022, (non-fasting) aura, with intractable Expi res: 09/18/2022 migraine, so stated, with status migrainosus documented as of this encounter Visit Diagnoses Diagnosis Chronic migraine without aura, with intr actable migraine, so stated, with status migrainosus documented in this encounter Care Teams Cantilever Crane Operator Relationship Specialty Start Date End Date Markus Ascencio MD PCP - General Internal Medicine 04/09/17 [address] [place] [address] documented as of this encounter
--- OUTSIDE RECORDS SUMMARY | 2022-06-11 16:18 | XMS_ITS | Encounter Summary ---
:1960 Author Organization [facility] [place] [address] Care Team Providers Name Role Phone Markus Ascencio MD Primary Care Provider Encounter Details Date Type Department Care Team Description 10/30/2021 Orders Only Neurology at [facility] Miriam Adame, Numbness and tingling [facility] MD in [place] [address] NEUROLOGY DEPT [phone] [place], [place] [address] (Wo rk) Social History Tobacco [...] Description 07/02/2022 Office Visit Neurology Candi Sanchez, BAKE ROOM WORKER [facility] [address] [place] [address] (Wo rk) documented as of this encounter Visit Diagnoses Diagnosis Numbness and tingling in right hand Disturbance of skin sensation documented in this encounter Care Teams Client Partner Relationship Specialty Start Date End Date Markus Ascencio MD PCP - General Internal Medicine 04/09/17 [address] [place] [address] documented as of this encounter
--- OUTSIDE RECORDS SUMMARY | 2022-06-11 16:18 | XMS_ITS | Encounter Summary ---
:1960 Author Organization [facility] [place] [address] Care Team Providers Name Role Phone Markus Ascencio MD Primary Care Provider Reason for Referral Routine Exam (Routine) - New Request Specialty Diagnoses / Procedures Referred By Contact Refer red To Contact Diagnoses Cervicogenic headache Rahul King MD Procedures NERVE BLOCK - OCCIPITAL [facility] [place] [address] Referral ID Status Reason Start Expiration Visits Visits Date Date Requested Authorized [id number] New Request Specialty 08/15/2021 08/15/2022 1 1 Service Requested Encounter Details Date Type Department Care Team Description 08/15/2021 Office Visit Neurology at [facility] [address] [place] [address] [place] [address] [phone] Social History Tobacco Use Types Packs/Day Years [...] Sign Reading Time Taken Comments Blood Pressure 144/69 08/15/2021 2:39 PM EDT Pulse 71 08/15/2021 2:39 PM EDT Temperature - - Respiratory Rate - - Oxygen Saturation 99% 08/15/2021 2:39 PM EDT Inhaled Oxygen Concentration - - Weight 73.9 kg (163 lb) 08/15/2021 2:39 PM EDT Height 182.9 cm (6') 08/15/2021 2:39 PM EDT reported Body Mass Index 22.11 08/15/2021 2:39 PM EDT documented in this encounter Progress Notes aRhul King MD - 08/15/2021 3:[address] [facility] - Follow up Appointment: INITIAL CONSULTATION: September 29, [address] Villalba headache medicine fellow LAST SEEN: May 25, 2021 Dr. Villalba has completed her headache medicine fellowship. Patient is now establishing care with me. INTERIM HISTORY: Since last being seen Viet Miko Mathis reports the most recent occipital nerve blocks without steroid on May 25, 2021 were not as helpful as the nerve blocks with steroid on April 27, 2021. He does believe that the nerve blocks with steroids gave him an overall 90% improvement. Also it is allowed him to pursue physical therapy to a better extent thus also contributing to improvement. Continues to use diclofenac on a as needed basis primarily for the joints in his hands. He does not notice any significant benefit on his headache. He tried pregabalin but only transiently. He did notice some fatigue. This interfered with his motivation for physical activity thus he discontinued the medication. There were previous discussions on referral to neurosurgery with respect to surgery and EMG for potential radiculopathy. However given the improvement that he is noted with occipital nerve blocks and physical therapy this plan has been placed on hold. He does not currently describe radicular pain in his arms. He has not noticed any weakness or sensory loss in his arms. He denies any bowel or bladder symptoms. He was hoping to have a repeat occipital nerve block with steroid today. Previously he did have a transient severe headache he had work-up for thunderclap headache that was normal. Has not returned. We took time to review the details of previous documentation and we confirmed the accuracy of the notes. Specifically we confirmed the details of the September 29, 2020, November 03, 2020, April 27, 2021, and May 25, 2021 encounters. He is referred to those dates for additional details. We also reviewed in detail MRI from October 05, 2020 and July 23, 2020. HEADACHE DIAGNOSIS/PHENOTYPE: Cevicogenic Headache HEADACHE DESCRIPTION: Unchanged HEADACHE FREQUENCY: Daily and continuous HEADCHE DAYS PER MONTH: 30 HEADACHE FREE DAYS PER MONTH: 0 FREQUENCY OF ACUTE MEDICATION USE: None. Uses diclofenac every 2 to 3 days for hand pain. CURRENT ACUTE TREATMENT: None CURRENT REDUCTION TREATMENT: Occipital nerve blocks ACUTE MEDICATIONS THAT HAVE FAILED INCLUDE: Diclofenac, ibuprofen, meloxicam REDUCTION MEDICATIONS THAT HAVE FAILED INCLUDE: Cyclobenzaprine, pregabalin [brief trial stopped dueto side effects] OUTSTANDING INVESTIGATIONS: EMG, neurosurgery referral OTHER: None The patient's current medications, allergies, [...] mg by mouth as needed. 0 ??? pregabalin (Lyrica) 25 mg Capsule Take 1 capsule by mouth 2 times daily. (Patient not taking: Reported on 08/15/2021) 60 capsule 3 No current facility-administered medications on file prior to visit. No Known Allergies Questionnaire Results: MIDAS MIDAS grade (use total of Q1 to 5) I: 0-5, little to no disability II: 6-10, mild disability III: 11-20, moderate disability IV: 21+, severe disability MIDAS Responses 08/14/2021 Days missed school/work 0 Days productivity at work/school reduced 0 Days did not do household work 0 Days productivity related to housework reduced 0 Days missed family, social or leisure activities 0 Days had headache 45 Pain scale 2 MIDAS Score 0 (MIDAS grade I, little or no disability) MIDAS Adjusted Score 0 PHQ9 PHQ-9 QUESTIONNAIRE (AMB) 08/14/2021 PHQ - 9 Score (Patient) 3 (Minimal Depression) Little interest or pleasure (Patient) Several days Down, depressed, hopeless (Patient) Not at all Trouble sleeping (Patient) Several days Tired or no energy (Patient) Several days Poor appetite or overeating (Patient) Not at all Feeling like a failure (Patient) Not at all Trouble concentrating (Patient) Not at all Moving or speaking slowly (Patient) Not at all Would be better off (Patient) Not at all Mild: 5-9 Moderate: 10-14 Mod-Severe: 15-19 Severe: >20 GAD7 JESI-7 Patient Reported Responses 08/14/2021 Nervous, anxious (Patient) Several days Unable to stop worrying (Patient) Not at all Worrying about different things (Patient) Not at all Trouble relaxing (Patient) Several days Restless (Patient) Not at all Easily annoyed, irritable (Patient) Several days Afraid something awful will happen (Patient) Not at all Difficulty (Patient) Not difficult at all JESI-7 Score (Patient) 3 (Minimal Anxiety) Mild: 5-9 Moderate: 10-14 Severe: 15-21 PHYSICAL EXAMINATION: Patient Vitals for the past 24 hrs: Pulse BP SpO2 08/15/21 1439 71 144/69 99 % General: On general physical examination, the patient looked well and was in no apparent distress. Dressed appropriately. Affect was Reactive. Cardiovascular: There were normal first and second heart sounds. No extra heart sounds, rubs, or murmurs were auscultated. There were no carotid bruits. Respiratory: Chest was clear to auscultation posteriorly. HEENT: Normocephalic, atraumatic. There were no abnormalities of the temporomandibular joints bilaterally. The temporal arteries were readily palpable, and they were nontender and nonnodular. Palpation over the sinuses did not elicit any pain. Palpation over the supraorbital and occipital notches did not elicit any pain. There was normal range of motion of the cervical spine in all directions. Palpation of the cervical spine and paraspinal elements did not reveal any specific tenderness. Trapezii were nontender bilaterally. Neurological: Mental status, speech, and language were normal in ordinary conversation. Cranial Nerves: Pupils were equal and reactive to light. There was no RAPD. Visual gonzalez were intact to confrontation. On fundoscopic examination the optic nerves appeared normal. There was no disc edema. Venous pulsations were present bilaterally. Extraocular movements including saccadic eye movements were normal. There was no nystagmus. There was no facial sensory loss. There was no facial asymmetry or weakness. Uvula was midline, and the soft palate moved symmetrically. Sternocleidomastoid and trapezii were strong bilaterally. Tongue was midline and moved normally. Motor Exam: There was normal tone and bulk in the upper and lower extremities. Pronator drift was absent. Power testing on nerve root screen did not reveal any focal weakness. Reflexes: Deep tendon reflexes were symmetrical and normal to brisk in the upper and lower extremities. No reflex spread Plantar reflexes were flexor bilaterally. Sensory Exam: Pinprick: normal in the distal extremities. light touch: normal in the distal extremities. Vibration: normal in the distal extremities. Joint position sense: normal in the distal extremities. A Romberg sign was absent. No truncal sensory level Coordination: Fine finger movements: Normal Rapid alternating movements: Normal Tgyytz-la-klvc: Normal Yanq-yw-ximf: Normal Gait: Regular gait: Normal Toe-walking: Normal Heel-walking: Normal Tandem gait: Normal Laboratory and Investigations: as discussed in the History of Presenting Illness. IMPRESSION: There has been interval improvement. I concur with Dr. Villalba this is likely cervicogenic headache. Investigations for other etiologies did not reveal or suggest another diagnosis. It is reassuring at present that there is no signs of cervical radiculopathy or myelopathy based on history or physical examination. We discussed at detail how to proceed. We discussed possible medication trials including regular celecoxib, gabapentin, or tizanidine. We also discussed continuing occipital nerve blocks with steroid. As the patient has had nerve blocks with and without steroid and found benefit only with the steroid nerve block it seems reasonable to continue. For detailed discussion we elected to continue with nerve blocks with steroid. We would leave the medication trials for future consideration. We repeated bilateral occipital nerve blocks with steroid. Please see procedure note for details. Follow-up in 3 months for repeat occipital nerve block with steroid. Should have establish care visit in 6 months with CRIS Sanchez. The pathophysiology, natural history, aggravating factors, and [...] the patient was satisfied with the explanation(s). Total time spent with Patient and/or charting on the day of the encounter: 60 minutes, greater than 50% involved counseling and coordinating care. Adam King MD Please note that this consultative letter was completed with the assistance of voice recognition software. As result unintentional principal military analyst errors and/or typographical mistakes are possible. If you notice errors please bring them to my attention. If any area requires explanation or clarification please do not hesitate to contact me. documented in this encounter Procedure Notes Rahul King MD - 08/15/2021 3:00 PM EDTAssociated Order(s): NERVE BLOCK - OCCIPITAL [facility] PROCEDURE NOTE Procedure: Bilateral occipital nerve block(s). Indication: Neuronitis and Cervicogenic Headache No Contraindications. The patient: Not on antiplatelet or anticoagulant therapy. Date of Last Injection: April 2021 QUESTIONNAIRE RESULTS: MIDAS: Patient Reported: MIDAS Responses 08/14/2021 Days missed school/work 0 Days productivity at work/school reduced 0 Days did not do household work 0 Days productivity related to housework reduced 0 Days missed family, social or leisure activities 0 Days had headache 45 Pain scale 2 MIDAS Score 0 (MIDAS grade I, little or no disability) MIDAS Adjusted Score 0 PHQ-9: PHQ9 Score 08/14/2021 Total PHQ-9 3 (Minimal Depression) JESI-7: JESI-7 Questionnaire Score Only 08/14/2021 JESI-7 Score (Patient) 3 (Minimal Anxiety) INTERIM HISTORY: The patient continues to derive significant benefit from the procedure and wishes to have it repeated today. no benefit from ONB without steroid Patient Vitals for the past 24 hrs: Pulse BP SpO2 08/15/21 1439 71 144/69 99 % I obtained written informed consent from the patient for nerve block(s) procedure.. August 2021 We discussed the indications, risks and benefits of the procedure. Risks including infection, bleeding, bruising, alopecia, pain, nerve injury, fat necrosis reaction, muscle atrophy, worsening of headache or no effect on headache. The patient continued to be in agreement with the above plan and had no further questions. The patient wished to proceed with the procedure. A preprocedural pause occurred to verify the patient's identity, correct medication, and correct target sites. The area over Bilateral Greater occipital nerves was cleaned with alcohol (swab saturated with 70% isopropyl alcohol), and then infiltrated with 1.0 mL of 1% Lidocaine using 25 - 5/8 inch gauge needle using a 3-mL syringe. Immediately following this the area over bilateral occipital nerves was infiltrated with 2.5 mL of 0.25% Bupivacaine and 0.5 mL of 40 mg/mL of methylprednisilone (IV or IM version)using a 25 - 5/8 inch gauge needle and a 3-mL syringe. Strict aseptic technique and negative heme aspiration was used. The patient tolerated the procedure well with no apparent side effects or complications. Anesthesia over the area was obtained immediately following the procedure. The patient was observed for 5 minutes afterwards. As stated above, there were no complications. PLAN: Follow up and continued management as per Me. Repeat Nerve block in: 3 Months. documented in this encounter Plan of Treatment Upcoming Encounters Date Type Specialty Care Team Description 07/02/2022 Office Visit Neurology Candi Sanchez, CRIS [facility] [place], [place] [address] (Wo rk) documented as of this encounter Procedures Procedure Name Priority Date/Time Associated Diagnosis Comme nts NERVE BLOCK - Routine 08/15/2021 3:00 PM Cervicogenic headache Results for this OCCIPITAL EDT procedure are i n the results section. documented in this encounter Results NERVE BLOCK - OCCIPITAL (08/15/2021 3:00 PM EDT) Narrative Rahul King MD - 08/15/2021 3:00 P M EDT Rahul King MD ? 08/15/2021 ??6:[address] [facility] PROCEDURE NOTE Procedure: Bilateral occipital nerve blo ck(s). Indication: Neuronitis and Cervicogenic Headache No Contraindications. The patient: Not on antiplatelet or anti coagulant therapy. Date of Last Injection: April 2021 QUESTIONNAIRE RESULTS: MIDAS: ??Patient Reported: MIDAS Responses 08/14/2021 Days missed school/work 0 Days productivity at work/school reduced 0 Days did not do household work 0 Days productivity related to housework r educed 0 Days missed family, social or leisure ac tivities 0 Days had headache 45 Pain scale ??2 MIDAS Score 0 (MIDAS grade I, little or no disability) MIDAS Adjusted Score 0 PHQ-9: ?? PHQ9 Score 08/14/2021 Total PHQ-9 3 (Minimal Depression) JESI-7: ?? JESI-7 Questionnaire Score Only 08/14/2021 JESI-7 Score (Patient) 3 (Minimal Anxiety ) INTERIM HISTORY: The patient continues to derive signific ant benefit from the procedure and wishes to have it repeated today. no benefit from ONB without steroid Patient Vitals for the past 24 hrs: Pulse BP SpO2 08/15/21 1439 71 144/69 99 % I obtained written informed consent from the patient for nerve block(s) procedure.. ?? August 2021 We discussed the indications, risks and benefits of the procedure. Risks including infection, bl eeding, bruising, alopecia, pain, nerve injury, fat necros is reaction, muscle atrophy, worsening of headache or no eff ect on headache. The patient continued to be in agreement with the above plan and had no further questions. ??The patient wished to proceed with the procedure. ?? A preprocedural pause occurred to verify the patient's identity, correct medication, and correct target s ites. The area over Bilateral Greater occipita l nerves was cleaned with alcohol (swab saturated with 70% isoprop yl alcohol), and then infiltrated with 1.0 mL of 1% Lidocaine using 25 - 5/8 inch gauge needle using a 3-mL syringe. ??Immediate ly following this the area over bilateral occipital nerves was infi ltrated with 2.5 mL of 0.25% Bupivacaine and 0.5 mL of 40 mg/mL of methylprednisilone (IV or IM version) using a 25 - 5/8 inch gauge needle and a 3-mL syringe. ??Strict aseptic technique and negative heme aspiration was used. ?? The patient tolerated the procedure well with no apparent side effects or complications. Anesthesia ove r the area was obtained immediately following the procedure. The patient was observed for 5 minutes afterwards. As stated above, t here were no complications. PLAN: ?? Follow up and continued management as pe ellie Me. ?? Repeat Nerve block in: 3 Months. Rahul King MD NEUROLOGY ORDERABLES documented in this encounter Visit Diagnoses Diagnosis Cervicogenic headache Headache documented in this encounter Administered Medications Inactive Administered Medications - up to 3 most recent administrations Medication Order MAR Action Action Date Dose Rate Site BUpivacaine (pf) (Marcaine) (2.5 Given 08/15/2021 4:20 PM EDT 12 .6 mg mg/mL) 0.25% injection 12.6 mg 12.6 mg, Subcutaneous, ONCE, 1 dose, On Sat08/15/21 at 1645, Routine lidocaine (Xylocaine) 1% (10 mg/mL) injection Given 4:20 PM EDT 20 mg 20 mg 20 mg (2 mL), Subcutaneous, ONCE, 1 dose, On Sat08/15/21 at 1645, Routine methylPREDNISolone acetate (DEPO-Medrol) (40 Given 4:20 PM EDT 40 mg mg/mL) injection 40 mg 40 mg, Intramuscular, ONCE, 1 dose, On Sat08/15/21 at 1645, Routine documented in this encounter Care Teams Hand Riveter Relationship Specialty Start Date End Date Markus Ascencio MD PCP - General Internal Medicine 04/09/17 [address] [place] [address] documented as of this encounter
--- OUTSIDE RECORDS SUMMARY | 2022-06-11 16:18 | XMS_ITS | Encounter Summary ---
:1960 Author Organization [facility] Address [address] [place] [address] Care Team Providers Name Role Phone Markus Ascencio MD Primary Care Provider Reason for Visit Reason Onset Date Comments TeleHealth 11/02/2020 Appt 11/03/20 Encounter Details Date Type Department Care Team Description 11/02/2020 Telephone Neurology at [facility] [place] Isela Villalba MD TeleHealth (Appt [facility] 11/03/20) [place] [address] NEUROLOGY [phone] [place] [id number] (Wo rk) Social History Tobacco Use Types [...] this encounter Miscellaneous Notes Telephone Encounter - Geri Urbina CMA - 11/02/2020 3:53 PM EST Spoke with patient to review medications and allergies prior to upcoming tele- appointment scheduledwith Neurology provider. documented in this encounter Plan of Treatment Upcoming Encounters Date Type Specialty Care Team Description 07/02/2022 Office Visit Neurology Candi Sanchez, EQUAL OPPORTUNITY COUNSELOR [facility] [address] [place], [place] [address] (Wo rk) documented as of this encounter Visit Diagnoses Not on filedocumented in this encounter Care Teams Test Case Developer Relationship Specialty Start Date End Date Markus Ascencio MD PCP - General Internal Medicine 04/09/17 [address] [place] [address] documented as of this encounter
--- OUTSIDE RECORDS SUMMARY | 2022-06-11 16:18 | XMS_ITS | Encounter Summary ---
:1960 Author Organization [facility] [place] [address] Care Team Providers Name Role Phone Markus Ascencio MD Primary Care Provider Reason for Visit Reason Onset Date Comments Appointment 03/21/2022 Encounter Details Date Type Department Care Team Description 03/21/2022 [facility] [address] [place] [address] [place], [place] [id number] [phone] (Wo rk) Social History Tobacco Use Types [...] Notes Telephone Encounter - Mi Tipton - 03/21/2022 3:16 PM EDT Patient will need to come in at 2 pm on 03.26.[address] exam to have his blood work drawn. Left a message on his home phone. Sent [facility] message as well-03.21.2022 documented in this encounter Plan of Treatment Upcoming Encounters Date Type Specialty Care Team Description 07/02/2022 Office Visit Neurology Candi Sanchez, BAR WELDER [facility] [address] [place], [place] [address] (Wo rk) documented as of this encounter Visit Diagnoses Not on filedocumented in this encounter Care Teams Livestock Yard Supervisor Relationship Specialty Start Date End Date Markus Ascencio MD PCP - General Internal Medicine 04/09/17 [address] [place] [address] documented as of this encounter
--- OUTSIDE RECORDS SUMMARY | 2022-06-11 16:18 | XMS_ITS | Encounter Summary ---
:1960 Author Organization [facility] [place] [address] Care Team Providers Name Role Phone Markus Ascencio MD Primary Care Provider Encounter Details Date Type Department Care Team Description 10/12/2021 Telephone [facility] [place] Luis Rojas MD Specialty Services [facility] [address] [place] [address] [place] [address] [place] [address] [phone] (Wo rk) Social History Tobacco Use Types [...] this encounter Miscellaneous Notes Telephone Encounter - Aminata Bishop Miko - 10/12/2021 4:32 PM EST Viet called in returning Dr. Rojas's call. I offered to connect him with [facility] pain clinic where Dr. Calhoun currently at, he declined to have me do that. He asked me to write a note in his chart saying he returned Dr. Rojas's call and it was seemingly impossible to get ahold of her I said I would do so and the call ended. Telephone Encounter - Shell Rojas MD - 10/12/2021 2:07 PM EST I received a message from Dr King who manages Mr Juan Feldman's cervicogenic headache. Patient had avasovagal response during diagnostic cervical medial branch nerve block. He continues to have severepain that is functionally debilitating. The reason for my telephone call was to discuss if he is willing to go to [facility] and be evaluated by the pain clinic there. There is the Coolief machine which allows patient to have cervical MBB/RFA on lateral decubitus position and they offer two agent sedation during RFA. I left a voice mail as both times for patient to call back to discuss. Shell Rojas MD Pain Management documented in this encounter Plan of Treatment Upcoming Encounters Date Type Specialty Care Team Description 07/02/2022 Office Visit Neurology Candi Sanchez, SILVERSMITH APPRENTICE [facility] [address] [place] [address] (Wo rk) documented as of this encounter Visit Diagnoses Not on filedocumented in this encounter Care Teams Front Desk Host Relationship Specialty Start Date End Date Markus Ascencio MD PCP - General Internal Medicine 04/09/17 [address] [place] [address] documented as of this encounter
--- OUTSIDE RECORDS SUMMARY | 2022-06-11 16:18 | XMS_ITS | Encounter Summary ---
:1960 Author Organization [facility] [place] [place] [address] Care Team Providers Name Role Phone Markus Ascencio MD Primary Care Provider Reason for Referral Consultation (Routine) - Closed Specialty Diagnoses / Procedures Referred By Contact Refer red To Contact Neurology Diagnoses Vasovagal syncope autonomic testing Miriam Burns MD Robbins, Nathaniel M, MD [facility] NEUROLOGY [place] [address] [place] [address] Fax: Referral ID Status Reason Start Date Expiration Date Visits V isits Requested Authorized [id number] Closed Consult, 12/26/2020 12/26/2021 1 1 Test & Treat Encounter Details Date Type Department Care Team Description 12/26/2020 TH Visit [place]rology [place] [facility] Miriam Burns Neuropathic pain; (TeleHealth) [facility] MD [place] [address] NEUROLOGY DEPT [phone] [place], [place] [address] Social History Tobacco Use Types [...] encounter Progress Notes Miriam Burns MD - 12/26/2020 4:00 PM EST Neurology Clinic Telephone/Telehealth Follow-up Note Per COVID19 Restrictions 12/25/20 10:34 PM Patient Name: Viet Mathis : 1960 PCP: Markus Ascencio MD Patient ID: Viet Mathis is a 60 y.o. male was evaluated remotely instead of scheduled FU visit. Last visit was 08/16/2020. Diagnosis: Episodic weakness, headache, cervicalgia, cervical spondylosis, vasovagal episodes. PMHx relevant to diagnosis: Patient Active Problem List Diagnosis ??? Cervical spondylosis ??? Cervicogenic headache Overview Note: Added automatically from request for surgery [id number] ??? Neck pain ??? Hallux rigidus of right foot ??? S/P Left cartiva for hallux rigidus 08/08/2017 Dr. Burns ??? Atrial fibrillation Overview Note: History of ablation attempt x 2 [facility] ??? Cardiomyopathy Overview Note: [place] [facility] [place], based possibly on nuclear stress test (details unknown) ??? Atypical chest pain ??? Bipolar II disorder ??? Anxiety ??? Bilateral foot pain Assessment from last visit, 08/16/2020: Viet Mathis is a 60 y.o. male who was evaluated remotely for episodic weakness. Since our last visit approximately a month ago, he reports having a 7- day period of generalized and profound weakness and fatigue as well as a couple of the events related to neck discomfort. I am suspicious that he has 2 separate etiologies. I think it is likely that the neck events do emanate from cervical spondylosis with numbness likely a result of neuroforaminal narrowing on the left. However, the degree of cervical spondylosis would not explain especially prolonged weakness and fatigue; there is no evidence either clinically or radiologically that would support cervical myelopathy. We discussed the followin. For neck events: I have recommended a trial of medical management with low- dose Flexeril, 2.5 mg p.o. nightly and Mobic 7.5 mg p.o. twice daily x2 weeks. I instructed him not to take the diclofenac while taking meloxicam. Once completed with the 2-week course of meloxicam, he can return to takingthe diclofenac if it is helping him. I have recommended referral to the pain/spine clinic for an asse ssment of his cervical spondylosis. 2. Prolonged episode of generalized fatigue/weakness: Genetic testing for periodic paralysis is still pending but his clinical presentation is not typical. I have recommended proceeding with MRI of thebrain with MRA of the head and neck. This is to evaluate for a central etiology as well as any ischemic event. I have also recommended EEG in consideration of the possibility that this represents an atypical seizure event (less likely). I have also recommended autonomic testing as well as tilt table test given this has some overlap with a presyncopal event. Orders Placed This Encounter Procedures ??? MRI Brain wwo Contrast (Generic): IMPRESSION Two small foci of white matter signal abnormality, nonspecific finding most commonly reflecting small vessel ischemia. When present in isolation such foci are often of no clinical significance. ??? MRI Angiogram Head wwo Contrast: IMPRESSION Apparent focal stenosis of the distal cervical internal carotid arteries, more marked on the right. The 3-D postcontrast MRI shows no clear stenosis at this site and the finding on MRA is most likely artifactual. If there is substantial concern for dissection from his symptoms, CTA is recommended for further evaluation ??? MRI Angiogram Neck wwo Contrast (Generic) ??? Referral to Pain and Spine Center (Internal only) ??? EP Tilt Table Test ??? EEG awake, asleep, drowsy, routine Autonomic testing Interval History: He is feeling an overall improvement in the flu episodes. He has been seen by the headache clinic,spine clinic, pain clinic, and spine PT. Headache clinic was arranged after he describes some episodes of very severe headache pain which were refractory and intense in nature. He continues to describethis as distinctive from the flulike episodes. By this I believe he is response referring to vasovagal type sensations. He has persistent and severe pain over the left greater than right occipital ridges and this causes him a lot of discomfort on a daily basis. It increases through the day and leaves him trying to use a wooden couch arm to try to relieve some of the discomfort. He has cervical spondylosis and has been evaluated by Dr. Casillas who recommended against surgical management. He subsequently was seen by the pain clinic and a JHONNY was attempted. This had to be aborted because of a vasovagal episode and he was referred back to neurology. He has since been working with physical therapy. He has had some good effect of physical therapy. He is also had trials of meloxicam and Flexeril. He felt the meloxicam was less helpful than Naprosyn but in general did not feel that NSAIDs have been very helpful for his neck. Flexeril completely knocked him out at a dose of 5 mg. He was to undergo EEG and tilt table test. The tilt table test did not get scheduled nor did the EEG. Past Medical History: Diagnosis Date ??? Anxiety 04/09/2017 ??? Atrial fibrillation 04/09/2017 History of ablation attempt x 2 [facility] ??? Atypical chest pain 04/09/2017 ??? Bilateral foot pain 12/18/2016 ??? Bipolar II disorder 04/09/2017 ??? Cardiomyopathy 04/09/2017 [place] [facility] [place], based possibly on nuclear stress test (details unknown) ??? Hallux rigidus of right foot 11/11/2018 ??? Neck pain 09/19/2020 ??? S/P Left cartiva for hallux rigidus 08/08/2017 Dr. Burns 04/23/2017 Medications: Medications 11/03/20 1305 Medication Sig Taking? cyclobenzaprine (Flexeril) 5 mg Tablet Take 0.5 tablets by mouth nightly. naproxen (NAPROSYN) 500 mg Tablet Take 500 mg by mouth as needed. valACYclovir (VALTREX) 500 mg Tablet Take 500 mg by mouth as needed. clonazePAM (KLONOPIN) 1 mg Tablet Take 1 mg by mouth as needed. diclofenac (CATAFLAM) 50 mg Tablet Take 50 mg by mouth as needed. Allergy: No Known Allergies Assessment / Plan: Viet Mathis is a 60 y.o. male who was evaluated remotely today by telehealth for assessmentof episodic headache, occipital headache pain, cervicalgia, cervical spondylosis, episodic quotes flulike episodes, and vasovagal spells. A unifying diagnosis for his symptoms is unlikely. However, I suspect his symptoms are related. In particular, I suspect his episodes of weakness come from combination of cervical spondylosis and vasovagal episodes. I had recommended a tilt table test but this wasdelayed because of Covid restrictions. I have asked scheduling to get this set up. I think it also would be helpful to get some input from Dr. Ballard regarding his vasovagal episodes and whether thesecould represent a primary autonomic dysfunction. It is interesting that he seems to get these in association with stressful activity or with physical activity; that being said, his episodes are not limited to these precipitants. Certainly there is an element of primary headache disorder; this may be cervicalgia relating to his underlying cervical spondylosis but certainly it seems he would benefit from occipital nerve blocks. I have reached out to my headache colleagues about whether this could be done. I have also talked to them about addition of Lyrica as a neuropathic pain agent to be started at 25 mg p.o. twice daily. This could be slowly incremented as tolerated. In terms of vasovagal episodes, I would like to proceed with his tilt table test as well as autonomic testing. I will get this set up hopefully in conjunction with Dr. Ballard evaluation. Follow-up: Okay to follow-up x1 in 1 to 2 months. However, ongoing follow-up should be through Dr. Ascencio to manage cervicalgia. MIRIAM BURNS MD [facility] Molder Wax Ball, Neuromuscular Medicine [facility] 12/25/20 10:34 PM Patient provided verbal consent prior to initiation of this telephone/televisit encounter and expressed understanding that the telephone/televisit may be billed similar to a clinic visit. I spent a total of 45 Minutes in discussion/counseling related to ongoing medical problems as well as medication management. documented in this encounter Plan of Treatment Upcoming Encounters Date Type Specialty Care Team Description 07/02/2022 Office Visit Neurology Candi Sanchez, EVENT SALES REPRESENTATIVE [facility] [address] [place], [place] [address] (Wo rk) Scheduled Referrals Name Type Priority Associated Diagnoses Order S chedule Referral to Outpatient Referral Routine Vasovagal syncope Ord ered: Neurology 12/26/2020 documented as of this encounter Visit Diagnoses Diagnosis Neuropathic pain Neuralgia, neuritis, and radiculitis, un specified Vasovagal syncope Syncope and collapse documented in this encounter Care Teams Bow Maker Gift Wrapping Relationship Specialty Start Date End Date Markus Ascencio MD PCP - General Internal Medicine 04/09/17 [address] [place] [address] documented as of this encounter
--- OUTSIDE RECORDS SUMMARY | 2022-06-11 16:18 | XMS_ITS | Encounter Summary ---
:1960 Author Organization [facility] [place] [address] Care Team Providers Name Role Phone Markus Ascencio MD Primary Care Provider Reason for Referral Consultation (Routine) - Closed Specialty Diagnoses / Procedures Referred By Contact Refer red To Contact Pain and Spine Center Diagnoses Cervicogenic headache Shell Rojas MD [facility] Pain Management [address] [place], [place] PAIN MANAGEMENT [address] [place] [address] Referral ID Status Reason Start Date Expiration Date Visits V isits Requested Authorized [id number] Closed Consult, 10/12/2021 10/12/2022 1 1 Test & Treat Encounter Details Date Type Department Care Team Description 10/12/2021 Orders Only Pain [facility] at [facility] MD Cervicogenic headache [facility] [address] [place] [address] PAIN MANAGEMENT [place] [phone] Social History Tobacco Use Types Packs/Day Years [...] Description 07/02/2022 Office Visit Neurology Candi Sanchez, SHEET METAL WORKER APPRENTICE [facility] [address] [place], [place] [address] (Wo rk) Scheduled Referrals Name Type Priority Associated Diagnoses Order S chedule Referral to Pain Outpatient Referral Routine Cervicogenic head ache Ordered: Management 10/12/2021 documented as of this encounter Visit Diagnoses Diagnosis Cervicogenic headache Headache documented in this encounter Care Teams Cooperative Education Coordinator Relationship Specialty Start Date End Date Markus Ascencio MD PCP - General Internal Medicine 04/09/17 [address] [place] [address] documented as of this encounter
--- OUTSIDE RECORDS SUMMARY | 2022-06-11 16:19 | XMS_ITS | Encounter Summary ---
:1960 Author Organization [facility] [place] [address] Care Team Providers Name Role Phone Markus Ascencio MD Primary Care Provider Reason for Visit Reason Onset Date Comments Other 09/29/2020 Encounter Details Date Type Department Care Team Description 09/29/2020 Telephone Neurology at [facility] Susie Fontanez MD Other [address] [facility] [place] [address] NEUROLOGY DEPT [phone] [place], [place] [address] (Wo rk) Social History Tobacco [...] encounter Miscellaneous Notes Telephone Encounter - Inga Peguero RN - 09/29/2020 6:04 PM EDT Kaylee called patient and assisted in scheduling MRI Telephone Encounter - Susan Barrios - 09/29/2020 3:38 PM EDT Call Center / Associate Art Director Message - General Issue Call Provider patient sees in Clinic: Susie Fontanez Caller and relationship (if other than patient-full name): patient Call back number: [phone] Ok to leave a message: yes Reason for call: Patient is calling stating he is returning Kaylee's call in regards to an MRI, please call back to discuss. Disposition of Call (choose one and remove others): ??? Routine message sent to [place]: x documented in this encounter Plan of Treatment Upcoming Encounters Date Type Specialty Care Team Description 07/02/2022 Office Visit Neurology Candi Sanchez, SALES SECRETARY [facility] [address] [place], [place] [address] (Wo rk) documented as of this encounter Visit Diagnoses Not on filedocumented in this encounter Care Teams Ribber Relationship Specialty Start Date End Date Markus Ascencio MD PCP - General Internal Medicine 04/09/17 [address] [place] [address] documented as of this encounter
--- OUTSIDE RECORDS SUMMARY | 2022-06-11 16:19 | XMS_ITS | Encounter Summary ---
:1960 Author Organization [facility] [place] [address] Care Team Providers Name Role Phone Markus Ascencio MD Primary Care Provider Encounter Details Date Type Department Care Team Description 10/21/2017 Telephone Orthopaedics at [facility] Naa Bates APRN [facility] [place] [address] ORTHOPAEDIC SURGERY [phone] [place] [id number] (Wo rk) Social History Tobacco Use Types [...] this encounter Miscellaneous Notes Telephone Encounter - Annie Alejandra RMA - 10/21/2017 3:22 PM EST [place] [phone] [employer] called to see if they can add to [facility] orth[employer]. They would provide anew top cover and add the rigid plate. He already has custom orthotics. Again he would need New top cover and the rigid plate is all that is needed to add to his already custom orthotic. They want to make sure that this is ok with Jania Bates APRN. documented in this encounter Plan of Treatment Upcoming Encounters Date Type Specialty Care Team Description 07/02/2022 Office Visit Neurology Candi Sanchez APRN [facility] [address] [place], [place] [address] (Wo rk) documented as of this encounter Visit Diagnoses Not on filedocumented in this encounter Care Teams Billboard Mechanic Relationship Specialty Start Date End Date Markus Ascencio MD PCP - General Internal Medicine 04/09/17 [address] [place] [address] documented as of this encounter
--- OUTSIDE RECORDS SUMMARY | 2022-06-11 16:19 | XMS_ITS | Encounter Summary ---
:1960 Author Organization [facility] [place] [address] Care Team Providers Name Role Phone Markus Ascencio MD Primary Care Provider Reason for Referral Consultation (Urgent) - Closed Specialty Diagnoses / Procedures Referred By Contact Refer red To Contact Neurology Diagnoses Intractable episodic headache, unspecified headache type Headache, unspecified Miriam Adame MD [facility] Neurology [facility] [address] [facility] [place] [address] [place] [address] Referral ID Status Reason Start Date Expiration Date Visits V isits Requested Authorized [id number] Closed Consult, Test 09/26/2020 09/26/2021 6 6 & Treat [facility] PCP Updated and/or Approved Encounter Details Date Type Department Care Team Description 09/26/2020 Orders Only Neurology at [facility] Miriam Adame, Intractable episodic [facility] headache, unspecified [facility] [place] [address] NEUROLOGY DEPT [phone] [place], [place] [address] (Wo rk) Social History Tobacco [...] 07/02/2022 Office Visit Neurology Candi Sanchez, EVENT DESIGNER [facility] [address] [place], [place] [address] (Wo rk) Scheduled Referrals Name Type Priority Associated Diagnoses Order S chedule Referral to Outpatient Referral Routine Intractable episodic Ordered: Neurology headache, 09/26/2020 unspecified headache type documented as of this encounter Visit Diagnoses Diagnosis Intractable episodic headache, unspecifi ed headache type documented in this encounter Care Teams Transfer Operator Relationship Specialty Start Date End Date Markus Ascencio MD PCP - General Internal Medicine 04/09/17 [address] [place] [address] documented as of this encounter
--- OUTSIDE RECORDS SUMMARY | 2022-06-11 16:19 | XMS_ITS | Encounter Summary ---
:1960 Author Organization [facility] [place] [address] Care Team Providers Name Role Phone Markus Ascencio MD Primary Care Provider Reason for Visit Reason Onset Date Comments Results 07/26/2020 Encounter Details Date Type Department Care Team Description 07/26/2020 Telephone Neurology at [facility] Miriam Adame MD Results [facility] [place] [address] NEUROLOGY DEPT [phone] [place], [place] [address] (Wo rk) Social History [...] this encounter Miscellaneous Notes Telephone Encounter - Bernice Corral RN - 07/27/2020 2:01 PM EDT Called and left message for patient letting in know that per Dr. Adame, this is nothing to be worried about, she would like to get all of the test results back and once she does she will discuss allof the results and how they piece together. If he had questions please call [phone] Telephone Encounter - Bernice Corral RN - 07/26/2020 4:58 PM EDT Called patient to follow up on his phone call, he states that he received the results from his MRI and they are a little scary, and he is wondering if he should be worried. Author let him know that hismessage would be sent to Dr. Adame and author would get back to patient by the end of the week. Patient verbalized agreement with plan. Telephone Encounter - Inga Patino - 07/26/2020 2:24 PM EDT Call Center / Cashier Credit Message Lab/Test results Request Provider patient sees in Clinic:Dr. Adame Caller: Pt If not Pt / Relation to pt: Call back Number: [phone] OK to leave message: yes Reason for call: lab/test results ??? Which results are being requested:MRI MRI Cervical Spine wwo Contrast ??? When were they done:07/23/20 ??? Where were they done:[facility] Any additional information for the nurse/provider: Pt called stating he has seen his results via [facility] already but he has a few questions that he would like to go over with Dr. Adame. Please kimberlyn pt back. Disposition of Call: ?? Routine Message sent to the Nurse documented in this encounter Plan of Treatment Upcoming Encounters Date Type Specialty Care Team Description 07/02/2022 Office Visit Neurology Candi Sanchez, ELECTRICAL AND INSTRUMENTATION MECHANIC [facility] [address] [place], [place] [address] (Wo rk) documented as of this encounter Visit Diagnoses Not on filedocumented in this encounter Care Teams Escrow Closer Relationship Specialty Start Date End Date Markus Ascencio MD PCP - General Internal Medicine 04/09/17 [address] [place] [address] documented as of this encounter
--- OUTSIDE RECORDS SUMMARY | 2022-06-11 16:19 | XMS_ITS | Encounter Summary ---
:1960 Author Organization [facility] [place] [address] Care Team Providers Name Role Phone Markus Ascencio MD Primary Care Provider Reason for Visit Reason Onset Date Comments Injections 09/02/2018 Encounter Details Date Type Department Care Team Description 09/02/2018 Telephone Orthopaedics at [facility] Grabiel Burns MD [facility] [place] [address] ORTHOPAEDIC SURGERY [phone] [place] [id number] (Wo rk) Social History Tobacco Use Types [...] this encounter Miscellaneous Notes Telephone Encounter - Kimberly Madsen - 09/05/2018 1:47 PM EDT Patient has been scheduled for November 11. Telephone Encounter - Kelly Hendrickson - 09/03/2018 9:28 AM EDT LM #1 to call to schedule an injection under fluoro right great toe. PLEASE NOTE: See below instructions for additional appointments if the patient wants his left foot evaluated as well. Telephone Encounter - Martha Rust - 09/03/2018 8:44 AM EDT OK to schedule R great toe injection in fluro, order is from August. Please see last note which is copied below regarding L foot if he would still like to be seen for that 1. Injection under fluoro right great toe 2. Xray left foot (order in) 3. Appointment in Dr. Burns's clinic: ??FVE: ??XR-L HALLUX RIGIDUS CORRECTION DOS 08/08/17follow up planfor patient, if he would like to be seen for his left foot as well Telephone Encounter - Kimberly Madsen - 09/02/2018 4:28 PM EDT Best phone # to reach the patient for [phone] Patient requests appointment for injection of the Right Big Toe. Patient requests an injection of (product type: cortisone/Synvisc/Monovisc/other): Fluoro injection Some injections require prior authorization, special orders, or an appointment somewhere other than our clinic, so knowing this in advance will help us to better meet your needs. If the injection requires prior authorization, we will schedule your appointment no earlier than twoweeks from the date that the order is entered in order to allow for the prior authorization process.Please note: if prior authorization is not completed before your appointment, we may need to call you to reschedule your appointment. Did you inform the patient of the above: yes documented in this encounter Plan of Treatment Upcoming Encounters Date Type Specialty Care Team Description 07/02/2022 Office Visit Neurology Candi Sanchez, CARE TRANSITION COORDINATOR [facility] [address] [place], [place] [address] (Wo rk) documented as of this encounter Visit Diagnoses Not on filedocumented in this encounter Care Teams Windows Server Engineer Relationship Specialty Start Date End Date Markus Ascencio MD PCP - General Internal Medicine 04/09/17 [address] [place] [address] documented as of this encounter
--- OUTSIDE RECORDS SUMMARY | 2022-06-11 16:19 | XMS_ITS | Encounter Summary ---
:1960 Author Organization [facility] [place] [address] Care Team Providers Name Role Phone Markus Ascencio MD Primary Care Provider Reason for Visit Reason Comments Follow-up left hallux rigidus correcti on DOS 08/08/17 Encounter Details Date Type Department Care Team Description 11/11/2018 Office Visit Orthopaedics at [facility] [place] Grabiel Burns MD Hallux rigidus of [facility] ([facility] [place] [address] ORTHOPAEDIC [phone] SURGERY [place] [id number] Social History Tobacco Use Types Packs/Day Years [...] Sign Reading Time Taken Comments Blood Pressure 139/79 11/11/2018 1:59 PM EST Pulse 67 11/11/2018 1:59 PM EST Temperature - - Respiratory Rate - - Oxygen Saturation - - Inhaled Oxygen Concentration - - Weight 74.8 kg (165 lb) 11/11/2018 1:59 PM EST Height 182.9 cm (6') 11/11/2018 1:59 PM EST Body Mass Index 22.38 11/11/2018 1:59 PM EST documented in this encounter Progress Notes Jania Batesorasami Larson, STERILIZATION TECH - 11/11/2018 1:50 PM EST PATIENT NAME: Viet Mathis AGE: 58 y.o. MR#: [id number] DATE OF VISIT: 11/11/2018 DATE OF INJURY/ONSET: right + chronic. Left foot cartiva surgery 08/08/2017. STAFF: Dr. Burns CHIEF COMPLAINT: right 1st MTP pain + hallux rigidus HISTORY OF PRESENT ILLNESS Mr. Mathis a 58 y.o. year old male comes into clinic today for routine post op for above and right 1st MTP hallux rigidus. He has a cortisone injection this morning and is feeling good with no pain. The left 1st MTP cartiva interpositional arthroplasty is doing well with no pain at rest. He will have some pain at the 1st MTP after cross country skiing. Yet, The pain resolves with no pain at rest. Overall he is very happy with his surgical outcome. No new injuries toreport. No incisional complaints. No other health related issues to report today. Active Ambulatory Problems Diagnosis Date Noted ??? Bilateral foot pain 12/18/2016 ??? Atrial fibrillation 04/09/2017 ??? Cardiomyopathy 04/09/2017 ??? Atypical chest pain 04/09/2017 ??? Bipolar II disorder 04/09/2017 ??? Anxiety 04/09/2017 ??? S/P Left cartiva for hallux rigidus 08/08/2017 Dr. Burns 04/23/2017 ??? Hallux rigidus of right foot 11/11/2018 Resolved Ambulatory Problems Diagnosis Date Noted ??? No Resolved Ambulatory Problems No Additional Past Medical History PAST SURGICAL HISTORY: Past Surgical History: Procedure Laterality Date ??? PRO HALLUX RIGIDUS W/CHEILECTOMY 1ST MP JT W/IMPLT Left 08/08/2017 CORRECTION HALLUX RIGIDUS, W IMPLANT (WRVU 8.01) performed by Grabiel Burns MD at [facility] MAIN OR Social History Socioeconomic History ??? Marital status: Spouse name: None ??? Number of children: None ??? Years of education: None ??? Highest education level: None Social Needs ??? Financial resource strain: None ??? Food insecurity - worry: None ??? Food insecurity - inability: None ??? Transportation needs - medical: None ??? Transportation needs - non-medical: None Occupational History ??? None Tobacco Use ??? Smoking status: Never Smoker ??? Smokeless tobacco: Never Used Substance and Sexual Activity ??? Alcohol use: Yes Comment: once in a while ??? Drug use: No ??? Sexual activity: None Other Topics Concern ??? 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 There is no history of bleeding disorders. No DVT or PE history. No sleep apnea or CPAP use. There are no reported problems with anesthesia. PHYSICAL EXAM: Vitals: 11/11/18 1359 BP: 139/79 Pulse: 67 Weight: 74.8 kg (165 lb) Height: 182.9 cm (6') Body mass index is 22.38 kg/m??. Mr. Mathis a 58 y.o. is alert and oriented. He appears in no acute discomfort and is resting comfortably in a chair in the exam room. Inspection: Surgical incision is healed on the LEFT with no erythema or evidence of infection. Rightfoot 1st MTP focal thickening. Palpation: + no TTP at the LEFT 1st MTP and right 1st MTP no pain with recent injection from today. ROM: Left 1st MTP with painless ROM and no instability. Right 1st MTP is stiff and painless. Strength: 5/5 in all planes of motion. Neurovascular: Both feet are Foot are sensate and well perfused, DP and PT 2+ to palpation. Sensation intact to 1st webspace, medial and lateral sole and dorsum. RADIOLOGICAL STUDIES: Left foot x-ray reviewed image by image in the office today reveals increased degenerative changes of the 1st MTP with known interpositional arthroplasty ASSESSMENT: 1. Left foot s/p interpositional arthroplasty (cartiva) greater than one year ago doing well no complications noted. 2. Right foot 1st MTP hallux rigidus PLAN: Mr. Mathis and I discussed his radiologic findings and physical exam findings. Treatment options and risks/benefits discussed from least to most invasive. Patient understands options. . Given the patients findings on physical examination and radiologic studies it seems appropriate to schedule and refer the patient for the followin) He can advance his activity as pain and function allow on the left. Ok to use cool packs and NSAID's prn after activity. 2) The right foot with initial TX with cortisone with the anesthetic portion of injection seems to be helping with pain. He is aware that we can safely perform these injections a few times per year. Oral NSAID's prn. If he gets to the point where the pain and dysfunction is interfering with his lifestyle he could consider interpositional arthroplasty surgery. Pt agrees, questions solicited/answered, will return as scheduled and as needed for concerns or questions. Pt understands they may also call us prn for above. documented in this encounter Plan of Treatment Upcoming Encounters Date Type Specialty Care Team Description 07/02/2022 Office Visit Neurology Candi Sanchez, STERILIZATION TECH [facility] [address] [place], [place] [address] (Wo rk) documented as of this encounter Visit Diagnoses Diagnosis Hallux rigidus of right foot Hallux rigidus documented in this encounter Care Teams Cane Piler Relationship Specialty Start Date End Date Markus Ascencio MD PCP - General Internal Medicine 04/09/17 [address] [place] [address] documented as of this encounter
--- OUTSIDE RECORDS SUMMARY | 2022-06-11 16:19 | XMS_ITS | Encounter Summary ---
:1960 Author Organization [facility] Address [place] [id number] Care Team Providers Name Role Phone Markus Ascencio MD Primary Care Provider Reason for Visit Auth/Cert Specialty Diagnoses / Procedures Referred By Contact Refer red To Contact Diagnoses cervicogenic headache Procedures PRO INJ, DIAG/THERAPEUTIC AGENT, PARAVERTEBRAL FACET JT, CERVICAL/THORACIC, SINGLE INJECTION, FACET JOINT,W/FLUORO, CERVICAL, SINGLE (WRVU 1.82) Referral ID Status Reason Start Date Expiration Date Visits Requ ested Visits Authorized [id number] 1 1 Encounter Details Date Type Department Care Team Description 10/13/2020 Hospital Encounter Pain Management Shell Rojas MD Cervicogenic headache; [facility] spon dylosis; [facility] Cervicogenic headache [facility] [place] [phone] Social History Tobacco Use Types Packs/Day Years [...] Sign Reading Time Taken Comments Blood Pressure 130/72 10/13/2020 9:40 AM EST Pulse - - Temperature - - Respiratory Rate 18 10/13/2020 9:40 AM EST Oxygen Saturation 100% 10/13/2020 9:40 AM EST Inhaled Oxygen Concentration - - Weight 78 kg (172 lb) 10/13/2020 8:40 AM EST Height 182.9 cm (6') 10/13/2020 8:40 AM EST Body Mass Index 23.33 10/13/2020 8:40 AM EST documented in this encounter Discharge Instructions Discharge InstructionsGaMary Carmen whaley RN - 10/13/2020 10:07 AM EST Pain Management Center Discharge Instructions: You were seen today by Surgeon(s): Shell Rojas MD Truong, Quyen V, MD The following was performed: Procedure(s) (LRB): INJECTION, FACET JOINT,W/FLUORO, CERVICAL, SINGLE (WRVU 1.82) (Left) It is normal that the injection site will be sore for up to 48 hours. [x] You may also experience mild stiffness in the joint near the injection site. You may resume your normal activities: tomorrow. You may shower today. DO NOT tub bathe, use whirlpools, hot tubs or pool therapy for 2 days. Remove Band-Aid(s) later today/tomorrow. Do not drive until tomorrow. Use caution walking/climbing stairs as you may be unsteady on your feet. You may use your usual medications, including pain medications, as directed, unless otherwise instructed. You may use an ice pack as needed for the first 24 hours, on for 20 minutes then off for 20 minutes.Do not apply heat today. Attempt to empty your bladder 4-6 hours after your procedure. You received the following medications: Medications Given During Procedure Date/Time Order Dose Route Action 10/13/2020 0917 BUpivacaine (PF) (Marcaine) 0.5 % (5 mg/mL) injection 2.5 mL Epidural Canceled Entry 10/13/2020 09 glycopyrrolate (ROBINUL) injection 312 mcg Intravenous Given During regular business hours, please phone the Pain Management Center at with any questions or if the following or other troubling symptoms develop: 1) Prolonged dizziness or weakness (more than 1 day). 2) Localized swelling, redness or drainage at the injection site(s). 3) Temperature of 101 degrees that lasts for more than 4 hours. After 5 PM or on weekends, call and ask for Pain Clinic provider on-call. If you are unable to reach the Pain Management Center and have a complication, please call your Primary Care Provider or proceed to your local emergency department. Mary Carmen Herbert RN Special instructions documented in this encounter Medications at Time of Discharge Medication Sig Dispensed Refills Start Date End Date valACYclovir (VALTREX) 500 Take 500 mg by 0 09/15 mg Tablet mouth as needed. clonazePAM (KLONOPIN) 1 mg Take 1 mg by mouth 0 0 04/22/2017 Tablet as needed. diclofenac (CATAFLAM) 50 mg Take 50 mg by 0 04/22 Tablet mouth daily. naproxen (NAPROSYN) 500 mg Take 500 mg by 0 03/08/2021 Tablet mouth as needed. cyclobenzaprine (Flexeril) Take 0.5 tablets 30 tablet 0 11/09/2020 5 mg TabletIndications: by mouth nightly. Episodic weakness documented as of this encounter H&P Notes Nandini Stokes MD - 10/13/2020 8:57 AM EST Patient Name: Viet Mathis Patient Age: 60 y.o. Birthdate: 1960 Admit date: 10/13/2020 Attending Physician: Shell Rojas MD PREPROCEDURE HISTORY AND PHYSICAL Date of Visit: October 13, 2020 Chief Complaint: Neck pain and headache HPI: Subjective Viet Mathis is a 60 y.o. male who presents today for Procedure: Left diagnostic CMBB targeting TON, C3, C4, C5 Referred by Nelson Casillas and evaluated by Dr. Rojas. The patient denies any recent NSAID or anticoagulation. The patient denies any allergy to local anesthetics, contrast dye. The history is obtained from the patient, and I have reviewed medical records provided by the referring physician and located in the electronic medical record to fill in gaps in the patient's recollection of events, treatments and outcomes. LOCATION: Left>right neck pain. PAIN LEVEL AT REST 07/11 PAST MEDICAL HISTORY: Past Medical History: Diagnosis Date ??? Anxiety 04/09/2017 ??? Atrial fibrillation 04/09/2017 History of ablation attempt x 2 [facility] ??? Atypical chest pain 04/09/2017 ??? Bilateral foot pain 12/18/2016 ??? Bipolar II disorder 04/09/2017 ??? Cardiomyopathy 04/09/2017 Per [facility] referral, based possibly on nuclear stress test (details unknown) ??? Hallux rigidus of right foot 11/11/2018 ??? Neck pain 09/19/2020 ??? S/P Left cartiva for hallux rigidus 08/08/2017 Dr. Burns 04/23/2017 There are no medical history contraindications to this procedure. PAST SURGICAL HISTORY: Past Surgical History: Procedure Laterality Date ??? PRO HALLUX RIGIDUS W/CHEILECTOMY 1ST MP JT W/IMPLT Left 08/08/2017 CORRECTION HALLUX RIGIDUS, W IMPLANT (WRVU 8.01) performed by Grabiel Burns MD at [facility] MAIN OR ??? XR FLUORO INJECTION DRAINAGE JOINT SM RIGHT Right 11/11/2018 XR Fluoro Guided Joint Injection Small Right 11/11/2018 [facility] RAD XRAY There are no medical history contraindications to this procedure. ALLERGIES: Patient has no known allergies. There are no allergic contraindications to this procedure. MEDICATIONS: No current facility-administered medications on file prior to encounter. Current Outpatient Medications on File Prior to Encounter Medication Sig Dispense Refill ??? naproxen (NAPROSYN) 500 mg Tablet Take 500 mg by mouth as needed. ??? cyclobenzaprine (Flexeril) 5 mg Tablet Take 0.5 tablets by mouth nightly. (Patient taking differently: Take 2.5 mg by mouth as needed.) 30 tablet 0 ??? valACYclovir (VALTREX) 500 mg Tablet as needed. 0 ??? clonazePAM (KLONOPIN) 1 mg Tablet 1 mg as needed. Patient uses once a month 0 ??? diclofenac (CATAFLAM) 50 mg Tablet 50 mg every other day. 0 There are no allergic contraindications to this procedure. FAMILY HISTORY: Family History Problem Relation Age of Onset ??? Cancer Mother Breast cancer ??? Migraines Mother SOCIAL HISTORY: Social History Socioeconomic History ??? Marital status: Single Spouse name: Not on file ??? Number of children: Not on file ??? Years of education: Not on file ??? Highest education level: Not on file Occupational History ??? Not on file Social Needs ??? Financial resource strain: Not on file ??? Food insecurity Worry: Not on file Inability: Not on file ??? Transportation needs Medical: Not on file Non-medical: Not on file Tobacco Use ??? Smoking status: Never Smoker ??? Smokeless tobacco: Never Used Substance and Sexual Activity ??? Alcohol use: Yes Comment: once in a while ??? Drug use: No ??? Sexual activity: Not on file Lifestyle ??? Physical activity Days per week: Not on file Minutes per session: Not on file ??? Stress: Not on file Relationships ??? Social connections Talks on phone: Not on file Gets together: Not on file Attends episcopalian service: Not on file Active member of club or organization: Not on file Attends meetings of clubs or organizations: Not on file Relationship status: Not on file ??? Intimate partner violence Fear of current or ex partner: Not on file Emotionally abused: Not on file Physically abused: Not on file Forced sexual activity: Not on file Other Topics Concern ??? 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 ROS: Pt denies recent fever, chills, infection, wounds, hospitalizations, ED visits, use of antibiotics. Otherwise, as described above. PHYSICAL EXAM: BP 142/70 Resp 18 Ht 182.9 cm (6') Wt 78 kg (172 lb) SpO2 100% BMI 23.33 kg/m?? Physical Exam Constitutional: Pt oriented to person, place, and time. Appears well-developed and well-nourished. No distress. HENT: Normocephalic and atraumatic. Pulmonary/Chest: Effort normal. Neurological: Alert and oriented to person, place, and time. No cranial nerve deficit. Moves all extremities at least antigravity Skin: Skin is warm and dry. No rash noted. Not diaphoretic. Psychiatric: Normal mood and affect. MSK: positive cervical facet loading bilaterally There are no physical examination findings which would preclude this procedure. RADIOLOGIC DATA: Relevant imaging reviewed LABS/DX RESULTS: Last 3 wbc, hgb, hct plt No results for input(s): WBC, HGB, HCT, PLATELET in the last 7068 hours. Last 3 Lytes No results for input(s): NA, K, CL, CO2, BUN, CREATININE in the last 7068 hours. Last 3 LFTs No results for input(s): AST, ALT, ALKPHOS, BILITOT, BILIDIR in the last 7068 hours. Last 3 Coags No results for input(s): PT, INR, PTT in the last 168 hours. Last 3 HgbA1C No results for input(s): HA1C in the last 7068 hours. ASSESSMENT: Assessment 1. Cervicogenic headache 2. Cervical spondylosis 3. Cervicogenic headache PLAN: Proceed with planned Left diagnostic CMBB targeting TON, C3, C4, C5 . Addressed all questions and concerns. Risks and benefits discussed with patient. No contraindications to the procedure at this time, will proceed. Nandini Stokes MD Pain Management Fellow [address] [phone] / [facility] documented in this encounter Miscellaneous Notes Op Note - Nandini Stokes MD - 10/13/2020 9:41 AM EST Pain Management Operative Note Patient Name: Viet Mathis : [id number] MR#: [id number] Case Date: 10/13/2020 Surgeon: Surgeon(s) and Role: * Shell Rojas MD - Primary Nandini Stokes MD - Fellow Present on Admission: ??? Cervicogenic headache ??? Cervical spondylosis Postoperative diagnosis: same Procedure(s) (LRB): INJECTION, FACET JOINT,W/FLUORO, CERVICAL, SINGLE (WRVU 1.82) (Left) PROCEDURE NOTE LEFT CERVICAL MEDIAL BRANCH BLOCKS Patient: Viet Mathis Provider: Nandini Stokes MD Viet Mathis has been referred to the Pain Management Center for cervical medial branch blocks. Procedure was aborted early and could not be completed due to vasovagal reaction with HR 40s, low bp, and patient reporting nausea and diaphoresis despite glycopyrrolate given. If rescheduling procedure, recommend prophylactic IV glycopyrrolate and attending only procedure. Patient was placed in Trendelenburg, wet towels, and vital signs stabilized. Patient recovered without any complications. Nandini Stokes MD Associated attestation - Shell Rojas MD - 10/13/2020 3:13 PM EST Attestation: Case Date: 10/13/2020 Patient presents for diagnostic cervical medial branch nerve block. He has a history of vagal response with IV in the past. Prior to procedure, IV was placed in his arm and IV fluids started. Shortly after procedure, patient's HR decreased to 30s, diaphoretic, required 0.4mg of IV glycopyrrolate, pt remained nauseous and diaphoretic. [place] were withdrawn. Shell Rojas MD 10/13/2020 documented in this encounter Plan of Treatment Upcoming Encounters Date Type Specialty Care Team Description 07/02/2022 Office Visit Neurology Candi Sanchez, COMPUTER CONSULTANT [facility] [address] [place] [address] (Wo rk) Scheduled Orders Name Type Priority Associated Diagnoses Order S chedule INJECTION,FACET Procedures Routine Cervicogenic headache One Time for 1 JOINT,W/FLUORO,CER Occurrenc es starting VICAL,SINGLE 10/13/2020 unti l 10/13/2020 documented as of this encounter Visit Diagnoses Diagnosis Cervicogenic headache - Primary Headache Cervical spondylosis Cervical spondylosis without myelopathy documented in this encounter Admitting Diagnoses Diagnosis Cervicogenic headache Headache documented in this encounter Active and Recently Administered Medications Times are shown in EST. PRN Medication Order 10/11/2020 10/12/2020 10/13/2020 glycopyrrolate (ROBINUL) injection (CANCELED) 0925 (Given - Provider: Mary Carmen Herbert RN) ONCE PRN, Starting Denisha 10/13/20 at 0925, Until Denisha 10/13/20 at 1209, Intra- Operative (Intra-Procedure), Routine documented in this encounter Care Teams Industrial Gas Servicer Helper Relationship Specialty Start Date End Date Markus Ascencio MD PCP - General Internal Medicine 04/09/17 [address] [place] [address] documented as of this encounter
--- OUTSIDE RECORDS SUMMARY | 2022-06-11 16:19 | XMS_ITS | Encounter Summary ---
:1960 Author Organization [facility] [place] [address] Care Team Providers Name Role Phone Markus Ascencio MD Primary Care Provider Encounter Details Date Type Department Care Team Description 09/27/2020 Telephone Neurology [place] [facility] Miriam Adame MD [facility] [place] [id number] NEUROLOGY DEPT [phone] [place], [place] [address] (Wo rk) Social History Tobacco [...] this encounter Miscellaneous Notes Telephone Encounter - Miriam Adame MD - 09/27/2020 6:12 PM EDT Called to discuss his MOTLEY symptoms. He describes pain localized to the region where the muscles of the neck come up and attaches to the skull. He also described ... 4 episodes on . Very rapid onset. 15-20 minutes duration. I kept visualizing that i had a hot charcoal brickette slowly moving around the LEFT side of the head. No pain on right side Flexeril was helpful. Plan for input from clinic documented in this encounter Plan of Treatment Upcoming Encounters Date Type Specialty Care Team Description 07/02/2022 Office Visit Neurology Candi Sanchez, MARKET RESEARCH ASSOCIATE [facility] [address] [place] [id number] (Wo rk) documented as of this encounter Visit Diagnoses Not on filedocumented in this encounter Care Teams Plater Apprentice Relationship Specialty Start Date End Date Markus Ascencio MD PCP - General Internal Medicine 04/09/17 [address] [place] [address] documented as of this encounter
--- OUTSIDE RECORDS SUMMARY | 2022-06-11 16:19 | XMS_ITS | Encounter Summary ---
:1960 [place] [address] Care Team Providers Name Role Phone Markus Ascencio MD Primary Care Provider Reason for Visit Auth/Cert Specialty Diagnoses / Procedures Referred By Contact Refer red To Contact Diagnoses cervicogenic headache Procedures PRO INJ, DIAG/THERAPEUTIC AGENT, PARAVERTEBRAL FACET JT, CERVICAL/THORACIC, SINGLE INJECTION, FACET JOINT,W/FLUORO, CERVICAL, SINGLE ([facility] 1.82) Referral ID Status Reason Start Date Expiration Date Visits Requ ested Visits Authorized [id number] 1 1 Encounter Details Date Type Department Care Team Description 10/13/2020 Surgery Pain Management Shell Vital MD INJECTION, FACET [facility] ADAN NT,W/FLUORO, Hospital CERVICAL, SINGLE ([facility] PAIN MANAGEME NT 1.82) [place] [address] [place] [address] [phone] Social History Tobacco Use Types Packs/Day Years [...] II disorder 04/09/2017 ??? Cardiomyopathy 04/09/2017 Per [facility] referral, based possibly on nuclear stress test [...] 8.01) performed by Grabiel Burns MD at [facility] MAIN OR ??? 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 Nandini Stokes MD Pain Management Fellow [address] [address] / [facility] documented in this encounter Miscellaneous Notes Op Note - Nandini Stokes MD - 10/13/2020 9:41 AM EST Pain Management Operative Note Patient Name: Viet Mathis : [id number] MR#: [id number] Case Date: 10/13/2020 Surgeon: Surgeon(s) and Role: * Shell Rojas MD - Primary Nandini Stokes MD - Fellow Present on Admission: ??? Cervicogenic headache ??? Cervical spondylosis Postoperative diagnosis: same Procedure(s) (LRB): INJECTION, FACET JOINT,W/FLUORO, CERVICAL, SINGLE ([facility] 1.82) (Left) PROCEDURE NOTE LEFT CERVICAL MEDIAL BRANCH BLOCKS Patient: Viet Mathis Provider: MD Viet Parekh E Van Vranken has been referred to the Pain Management [...] IV glycopyrrolate, pt remained nauseous and diaphoretic. Goodman were withdrawn. Shell Rojas MD 10/13/2020 documented in this encounter Plan of Treatment Upcoming Encounters Date Type Specialty Care Team Description 07/02/2022 Office Visit Neurology Candi Sanchez, DESKTOP ARCHITECT [facility] [address] [place] [address] (Wo rk) Scheduled Orders Name Type Priority Associated Diagnoses Order S chedule INJECTION,FACET Procedures Routine Cervicogenic headache One Time for 1 JOINT,W/FLUORO,CER Occurrenc es starting VICAL,SINGLE 10/13/2020 unti l 10/13/2020 documented as of this encounter Visit Diagnoses Diagnosis Cervicogenic headache - Primary Headache Cervical spondylosis Cervical spondylosis without myelopathy Cervicogenic headache Headache documented in this encounter Admitting Diagnoses Diagnosis Cervicogenic headache Headache documented in this encounter Administered Medications Inactive Administered Medications - up to 3 most recent administrations Medication Order MAR Action Action Date Dose Rate Site glycopyrrolate (ROBINUL) Given 10/13/2020 9:25 AM EST 312 mcg injection ONCE PRN, Starting on Denisha 10/13/20 at 0925, Until Denisha 10/13/20 at 1209, Intra-Operative (Intra-Procedure), Routine documented in this encounter Active and Recently Administered Medications Times are shown in EST. PRN Medication Order 10/11/2020 10/12/2020 10/13/2020 glycopyrrolate (ROBINUL) injection (CANCELED) 0925 (Given - Provider: Mary Carmen Herbert RN) ONCE PRN, Starting Denisha 10/13/20 at 0925, Until Denisha 10/13/20 at 1209, Intra- Operative (Intra-Procedure), Routine documented in this encounter Care Teams Warrant Server Relationship Specialty Start Date End Date Markus Ascencio MD PCP - General Internal Medicine 04/09/17 [address] [place] [address] documented as of this encounter
--- OUTSIDE RECORDS SUMMARY | 2022-06-11 16:19 | XMS_ITS | Encounter Summary ---
:1960 Author Organization [facility] [place] [address] Care Team Providers Name Role Phone Markus Ascencio MD Primary Care Provider Reason for Visit Reason Onset Date Comments TeleHealth 08/15/2020 Encounter Details Date Type Department Care Team Description 08/15/[address] [facility] Miriam Adame MD [facility] [place] [address] NEUROLOGY DEPT [phone] [place], [place] [address] (Wo rk) Social History Tobacco [...] Telephone Encounter - Susie Espinoza RN - 08/15/2020 1:00 PM EDT Unable to reach this patient by phone to review medications and allergies prior to upcoming tele-appointment scheduled with Neurology provider. No call back message left. documented in this encounter Plan of Treatment Upcoming Encounters Date Type Specialty Care Team Description 07/02/2022 Office Visit Neurology Candi Sanchez, ATTENDANT COIN OPERATED LAUNDRY [facility] [address] [place], [place] [address] (Wo rk) documented as of this encounter Visit Diagnoses Not on filedocumented in this encounter Care Teams Change Management Lead Relationship Specialty Start Date End Date Markus Ascencio MD PCP - General Internal Medicine 04/09/17 [address] [place] [address] documented as of this encounter
--- OUTSIDE RECORDS SUMMARY | 2022-06-11 16:19 | XMS_ITS | Encounter Summary ---
:1960 Author Organization [place] [address] Care Team Providers Name Role Phone Markus Ascencio MD Primary Care Provider Reason for Visit Reason Comments Follow-up HALLUX RIGIDUS CORRECTION Encounter Details Date Type Department Care Team Description 09/24/2017 Office Visit [place] [facility] Grabiel Burns MD S/P Left cartiva for [facility] 08/08/2017 [place] [address] ORTHOPAEDIC [phone] SURG[place], [place] [address] Social History Tobacco Use Types [...] Sign Reading Time Taken Comments Blood Pressure 128/69 09/24/2017 3:59 PM EDT Pulse 70 09/24/2017 3:59 PM EDT Temperature - - Respiratory Rate - - Oxygen Saturation - - Inhaled Oxygen Concentration - - Weight 77.1 kg (170 lb) 09/24/2017 3:59 PM EDT Height 182.9 cm (6') 09/24/2017 3:59 PM EDT Body Mass Index 23.06 09/24/2017 3:59 PM EDT documented in this encounter Progress Notes Bernice Rowley PA - 09/24/2017 3:40 PM EDT Chief complaint: 7 weeks post left cartiva for hallux rigidus 08/08/17 ([place]) Problem List Items Addressed This Visit S/P Left cartiva for hallux rigidus 08/08/2017 Dr. Burns History of present illness: Viet Mathis is a 57 y.o. year-old male 7 weeks post left cartiva for hallux rigidus 08/08/17 ([facility]). He reports that he continues to have pain similar to previous surgery however this is at most a 2 out of 10. He does not take pain medication for this. He reports thatafter being on his feet for most of the day he becomes sore under his MTPs. He is able to use his bicycle as well as roller skis with no pain. He has had no fever, chills, drenching night sweats. Past medical history: Patient Active Problem List Diagnosis Date Noted ??? S/P Left cartiva for hallux rigidus 08/08/2017 Dr. Burns 04/23/2017 ??? Atrial fibrillation 04/09/2017 ??? Cardiomyopathy 04/09/2017 ??? Atypical chest pain 04/09/2017 ??? Bipolar II disorder 04/09/2017 ??? Anxiety 04/09/2017 ??? Bilateral foot pain 12/18/2016 Medications: ??? clonazePAM (KLONOPIN) 1 mg Tablet ??? diclofenac (CATAFLAM) 50 mg Tablet ??? diclofenac (VOLTAREN) 75 mg Tablet, Delayed Release (E.C.) Allergies: No Known Allergies Social history: Social History Substance Use Topics ??? Smoking status: Never Smoker ??? Smokeless tobacco: Never Used ??? Alcohol use Yes Comment: once in a while Review of systems: No chest pain or shortness of breath No fevers, night sweats or chills Vital signs: Most Recent Vitals: 09/24/17 1559 BP: 128/69 Pulse: 70 Physical Exam: Inspection MTP of first is somewhat red. Non boggy. Incision looks to have healed nicely. Motion: Ankle Plantarflexion 35 Dorsiflexion 20 Inversion 30 Eversion 20 Digits 1-5 FROM PT/DP pulses 2+. Superficial peroneal, deep peroneal, sural, saphenous, and tibial nerves intact to touch. Imaging: Personal review of the patient's imaging reveals: MTP joint space shows increased space, recess for Cartiva noted. Assessment: 57 y.o. year-old male 7 weeks post left cartiva for hallux rigidus 08/08/17 ([place]) Plan: Patient seen and plan discussed in conjunction with Dr. Burns. We had a long discussion about the nature of his pain. We reviewed his x-ray images together which shows MTP joint space shows increased space, recess for Cartiva noted. Clinically he is doing well. We discussed slowing down on physical activity to allow decrease in swelling. He would like to follow up in November for a cortisone injection in the contralateral foot. We can then discuss obtaining Cartiva in the contralateral foot. He would need to wait 3 months post corticosteroid injection prior to Cartiva. Follow up: In November This plan was discussed with the patient and they are in agreement. All of the patient's questions were answered. Bernice Rowley PA-C The above dictation was made with voice recogonition software Grabiel Burns MD - 09/24/2017 3:40 PM EDT I saw the patient in conjunction with lara Rowley and agree with her assessment and plan. Patient feels better than he did preoperatively. He has been quite active and does have some swelling in his toe, but no signs of active infection. I encouraged him to take it a little bit easier at this point so he is ready for the skiing season when the time comes. He would like to consider a steroid injection in his contralateral toe prior to the beginning of the season. He will call to schedule this from the time comes. documented in this encounter Plan of Treatment Upcoming Encounters Date Type Specialty Care Team Description 07/02/2022 Office Visit Neurology Candi Sanchez, CHAIN TENDER [facility] [address] [place], [place] [address] (Wo rk) documented as of this encounter Visit Diagnoses Diagnosis S/P Left cartiva for hallux rigidus 2016 Dr. Burns documented in this encounter Care Teams Sales Development Consultant Relationship Specialty Start Date End Date Markus Ascencio MD PCP - General Internal Medicine 04/09/17 [address] [place] [address] documented as of this encounter
--- OUTSIDE RECORDS SUMMARY | 2022-06-11 16:19 | XMS_ITS | Encounter Summary ---
:1960 Author Organization [facility] [place] [address] Care Team Providers Name Role Phone Markus Ascencio MD Primary Care Provider Encounter Details Date Type Department Care Team Description 11/11/2018 Hospital Encounter XRay at [facility] [place], Grabiel Landeros, S/P Left cartiva for [address] [facility] [address] MD iqra mcpherson [facility] 08/08/2017 Dr. Ignacio [place] [id number] [place] [phone] [place] [address] Social History Tobacco Use Types Packs/Day Years [...] 04/22/2017 Tablet as needed. diclofenac (CATAFLAM) 50 Take 50 mg by mouth 0 mg Tablet daily. diclofenac (VOLTAREN) 75 Take 75 mg by mouth 0 09/16/2020 mg Tablet, Delayed Release 2 times daily. (E.C.) documented as of this encounter Plan of Treatment Upcoming Encounters Date Type Specialty Care Team Description 07/02/2022 Office Visit Neurology Candi Sanchez, DEVOPS [facility] [address] [place] [place] [address] (Wo rk) documented as of this encounter Procedures Procedure Name Priority Date/Time Associated Diagnosis Comme nts XR FOOT MIN 3 VIEWS Routine 11/11/2018 12:24 PM S/P Left carti va for Results for this LEFT EST hallux rigidus procedure are in 08/08/2017 Dr. Burns the results section. documented in this encounter Results XR Foot Min 3 views Left (Generic) (11/11/2018 12:24 PM EST) Anatomical Region Laterality Modality Foot Left Digital Radiography Specimen (Source) Anatomical Location Collection Method / Collectio n Time Received Time / Laterality Volume Impressions 11/11/2018 2:28 PM EST Interval arthropathic changes by the first MTP joint. Narrative 11/11/2018 2:28 PM EST EXAMINATION: XR FOOT MIN 3 VIEWS LEFT (GENERIC) CLINICAL HISTORY: LEFT HALLUX RIGIDUS CO RRECTION TECHNIQUE: 3 view(s) LEFT foot COMPARISON: 08/20/2017. FINDINGS: Unchanged osseous mineralization and ali gnment. Increased deformity along the base of the great toe proximal phalanx, with sclerosis and marginal productive changes. No definite change in contour/a ppearance of the first metatarsal head excision question increased subchondral cystic lucencies. No other osseous findings. Procedure Note Molly Kruger MD - 11/11/2018Formatt ing of this note might be different from the original. EXAMINATION: XR FOOT MIN 3 VIEWS LEFT (G ENERIC) CLINICAL HISTORY: LEFT HALLUX RIGIDUS CO RRECTION TECHNIQUE: 3 view(s) LEFT foot COMPARISON: 08/20/2017. FINDINGS: Unchanged osseous mineralization and ali gnment. Increased deformity along the base of the great toe proximal phalanx, with sclerosis and marginal productive changes. No definite change in contour/a ppearance of the first metatarsal head excision question increased subchondral cystic lucencies. No other osseous findings. IMPRESSION Interval arthropathic changes by the fir st MTP joint. Kristofer Valadez MD IMG DX ORDERABLES documented in this encounter Visit Diagnoses Diagnosis S/P Left cartiva for hallux rigidus 2016 Dr. Burns documented in this encounter Care Teams Social Media Analyst Relationship Specialty Start Date End Date Markus Ascencio MD PCP - General Internal Medicine 04/09/17 [address] [place] [address] documented as of this encounter
--- OUTSIDE RECORDS SUMMARY | 2022-06-11 16:19 | XMS_ITS | Encounter Summary ---
:1960 Author Organization [facility] [place] [address] Care Team Providers Name Role Phone Markus Ascencio MD Primary Care Provider Encounter Details Date Type Department Care Team Description 08/30/2020 Orders Only [facility] Casillas MD Neck pain [facility] [place] [address] [place] [address] [phone] (Wo rk) Social History Tobacco Use Types [...] Description 07/02/2022 Office Visit Neurology Candi Sanchez, PROTEIN SPECIALIST [facility] [address] [place] [address] (Wo rk) documented as of this encounter Results XR Cervical Spine 2 or 3 Views (09/19/2020 9:13 AM EDT) Anatomical Region Laterality Modality C-spine N/A Digital Radiography Specimen (Source) Anatomical Location Collection Method / Collectio n Time Received Time / Laterality Volume Impressions 09/19/2020 9:52 AM EDT Multilevel cervical spondylosis, with moderate degenerative disc changes particularly involving C4-5, C5-6, C6-7. Multilevel anterolisthesis and retrolisthesis with suggestion of instab ility at C2-3, C3-4, C4-5, and stable retrolisthesis of C5-6, C6-7. Thank you for letting us participate in the care of this patient. For questions regarding this report, please contact e number below. ? Narrative 09/19/2020 9:52 AM EDT EXAMINATION: XR CERVICAL SPINE 2 OR 3 VIEWS CLINICAL HISTORY: Upright AP & Lateral F albino/Ext (3 views) to eval cervical spondylosis. TECHNIQUE: 3 views of the cervical spine: AP standi ng, lateral flexion-extension cervical spine. COMPARISON: MRI cervical spine 07/23/2020 FINDINGS: ?? Multilevel degenerative disc changes, mo st pronounced at C4-5, C5-6, C6-7. Vertebral body heights are well-maintain ed with no evidence of fracture. Alignment: The atlantoaxial interval april ears normal and stable in flexion and extension. In flexion, there is grade 1 anterolisth esis of C2 on C3, reduced in extension. In flexion, there is grade 1 anterolisth esis of C3 on C4, partially reduced in extension. In extension, there is grade 1 retrolist hesis of C4 on C5, reduced in flexion. At C5-6 and C6-7, there is minimal stabl e grade 1 retrolisthesis in flexion and extension. Mild facet arthropathy of the lower lumb ar spine. The visualized upper thoracic appears in tact. Prevertebral soft tissues are unremarkab le. Procedure Note Shira Rodriguez MD - 0 EXAMINATION: XR CERVICAL SPINE 2 OR 3 EWS CLINICAL HISTORY: Upright AP & Lateral F albino/Ext (3 views) to eval cervical spondylosis. TECHNIQUE: 3 views of the cervical spine: AP standi ng, lateral flexion-extension cervical spine. COMPARISON: MRI cervical spine 07/23/2020 FINDINGS: Multilevel degenerative disc changes, mo st pronounced at C4-5, C5-6, C6-7. Vertebral body heights are well-maintain ed with no evidence of fracture. Alignment: The atlantoaxial interval april ears normal and stable in flexion and extension. In flexion, there is grade 1 anterolisth esis of C2 on C3, reduced in extension. In flexion, there is grade 1 anterolisth esis of C3 on C4, partially reduced in extension. In extension, there is grade 1 retrolist hesis of C4 on C5, reduced in flexion. At C5-6 and C6-7, there is minimal stabl e grade 1 retrolisthesis in flexion and extension. Mild facet arthropathy of the lower lumb ar spine. The visualized upper thoracic appears in tact. Prevertebral soft tissues are unremarkab le. IMPRESSION Multilevel cervical spondylosis, with mo derate degenerative disc changes particularly involving C4-5, C5-6, C6-7. Multilevel anterolisthesis and retrolisthesis with suggestion of instab ility at C2-3, C3-4, C4-5, and stable retrolisthesis of C5-6, C6-7. Thank you for letting us participate in the care of this patient. For questions regarding this report, please contact e number below. Electronically signed by: Shira Hay MD, [facility] ([phone]), at 09/19/2020 9:52 AM Nelson Casillas MD IMG DX ORDERABLES documented in this encounter Visit Diagnoses Diagnosis Neck pain Cervicalgia Neck pain Cervicalgia documented in this encounter Care Teams Nursing Informatics Specialist Relationship Specialty Start Date End Date Markus Ascencio MD PCP - General Internal Medicine 04/09/17 [address] [place] [address] documented as of this encounter
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
--- OUTSIDE RECORDS SUMMARY | 2022-06-11 16:19 | XMS_ITS | Encounter Summary ---
:1960 Author Organization [facility] [place] [address] Care Team Providers Name Role Phone Markus Ascencio MD Primary Care Provider Encounter Details Date Type Department Care Team Description 11/11/2018 Hospital [place] [facility] [place], Grabiel Landeros, Hallalanis rigidus of [address] [place] [address] Dr ESQUIVEL right foot [facility] [address] [place] [phone] [place] [address] Social History Tobacco Use Types Packs/Day Years [...] Description 07/02/2022 Office Visit Neurology Candi Sanchez, FURNACE FEEDER [facility] [address] [place], [place] [address] (Wo rk) documented as of this encounter Procedures Procedure Name Priority Date/Time Associated Diagnosis Comme nts XR FLUORO INJECTION Routine 11/11/2018 1:38 PM Hallux rigidus of Results for this DRAINAGE JOINT SM EST right foot procedure are in RIGHT the results section. documented in this encounter Results XR Fluoro Guided Joint Injection Small Right (11/11/2018 1:38 PM EST) Anatomical Region Laterality Modality Right Radio Fluoroscopy Specimen (Source) Anatomical Location Collection Method / Collectio n Time Received Time / Laterality Volume Impressions 11/11/2018 2:51 PM EST Uneventful right foot first MTP joint injection under fluoroscopy. Resident/ Fellow: None Attending: There was no attending presen t for this procedure Procedure performed by DANNY Gordon RN Narrative 11/11/2018 2:51 PM EST HISTORY: right 1st MTP joint pain, hallux rigidus - inject with steriod and anesthetic. RIGHT FOOT FIRST MTP JOINT ??INJECTION U NDER FLUOROSCOPY TECHNIQUE: After an extensive conversation with the patient regarding risks and benefits, oral and written consent were obtained.? A pre- procedural time-out was performed, including review of the patie nt's relevant electronic medical record and allergies, as per [facility] [place]. The patient was placed supine on the flu oroscopic table. ??The skin overlying the dorsal aspect of the right 1st MTP joint was prepped and draped in the usual aseptic manner. 1% Lidocaine was used to achieve local anesthesia. Under fluoroscopic guidance, a 25-gauge 5/8 in ch needle was advanced into the joint space. ??Small amount of contrast was in jected to the document needle placement. A mixture of Ropivacaine and depomedrol was injected. All needles removed at end of procedure. FINDINGS: 1. ??Small amount of injected contrast i n the joint space. 2. ??PAIN SCORE: ??Before: 3/10 ??After: ??0/10 3. Fluoroscopy time: 0.10 minutes 4. Medications: ??Lidocaine 1% - <5 ml, for subcutaneou s anesthesia ??Omnipaque 300: < 0.5ml A mixture composed of the following medi cation was prepared: Ropivacaine HCL ??0.5% - 1 ml (5mg) methylPREDNISolone acetate 40: 40 mg Total injected volume: 2ml COMPLICATIONS: None immediate. POST-PROCEDURE CARE: Information regardi ng monitor of infection, post- procedural pain and management of steroi d flare were reviewed with patient. Procedure Note Bekah Correa, FURNACE FEEDER - 11/11/2018Forma tting of this note might be different from the original. HISTORY: right 1st MTP joint pain, hallu x rigidus - inject with steriod and anesthetic. RIGHT FOOT FIRST MTP JOINT INJECTION UND ER FLUOROSCOPY TECHNIQUE: After an extensive conversation with the patient regarding risks and benefits, oral and written consent were obtained.? A pre- procedural time-out was performed, including review of the patie nt's relevant electronic medical record and allergies, as [place] [facility] [place] [place]. The patient was placed supine on the flu oroscopic table. The skin overlying the dorsal aspect of the right 1st MTP joint was prepped and draped in the usual aseptic manner. 1% Lidocaine was used to achieve local anesthesia. Under fluoroscopic guidance, a 25-gauge 5/8 in ch needle was advanced into the joint space. Small amount of contrast was inje cted to the document needle placement. A mixture of Ropivacaine and depomedrol was injected. All needles removed at end of procedure. FINDINGS: 1. Small amount of injected contrast in the joint space. 2. PAIN SCORE: Before: 3/10 After: 0/10 3. Fluoroscopy time: 0.10 minutes 4. Medications: Lidocaine 1% - <5 ml, for subcutaneous anesthesia Omnipaque 300: < 0.5ml A mixture composed of the following medi cation was prepared: Ropivacaine HCL 0.5% - 1 ml (5mg) methylPREDNISolone acetate 40: 40 mg Total injected volume: 2ml COMPLICATIONS: None immediate. POST-PROCEDURE CARE: Information regardi ng monitor of infection, post- procedural pain and management of steroi d flare were reviewed with patient. IMPRESSION Uneventful right foot first MTP joint in jection under fluoroscopy. Resident/ Fellow: None Attending: There was no attending presen t for this procedure Procedure performed by DANNY Gordon RN Grabiel Burns MD IMG FLUORO ORDERABLES documented in this encounter Visit Diagnoses Diagnosis Hallux rigidus of right foot Hallux rigidus documented in this encounter Administered Medications Inactive Administered Medications - up to 3 most recent administrations Medication Order MAR Action Action Date Dose Rate Site iohexol (OMNIPAQUE) 300 mg/mL Given 11/11/2018 1:30 PM EST 10 mL s solution 10 mL 10 mL, Intra-articular, ONCE, 1 dose, On Sat11/11/18 at 1345, Warning Vesicant/Irritant Medication , Routine lidocaine (XYLOCAINE) 10 mg/mL (1 %) Given 11/11/2018 1:29 PM ES T 200 mg injection 200 mg 200 mg (20 mL), Intra-articular, ONCE, 1 dose, On Sat11/11/18 at 1345, Routine ROpivacaine (PF) 5 mg/mL (0.5 %) 4 mL with Given 11/11/2018 1:30 PM EST methylPREDNISolone acetate 40 mg, iohexol 300 mg/mL 4 mL injection Intra-articular, ONCE, 1 dose, On Sat11/11/18 at 1345 documented in this encounter Care Teams Electric Clock Mechanic Relationship Specialty Start Date End Date Markus Ascencio MD PCP - General Internal Medicine 04/09/17 [address] [place] [address] documented as of this encounter
--- OUTSIDE RECORDS SUMMARY | 2022-06-11 16:19 | XMS_ITS | Encounter Summary ---
:1960 Author Organization [facility] [place] [address] Care Team Providers Name Role Phone Markus Ascencio MD Primary Care Provider Reason for Visit Reason Onset Date Comments Other 09/26/2020 Encounter Details Date Type Department Care Team Description 09/26/2020 Telephone Neurology at [facility] Miriam Adame MD Other [facility] [place] [address] NEUROLOGY DEPT [phone] [place], [place] [address] (Wo rk) Social History Tobacco [...] this encounter Miscellaneous Notes Telephone Encounter - Francisca Amaya - 09/26/2020 2:31 PM EDT Call Center / [place] Message - General Issue Call Provider patient sees in Clinic: Dr. Adame Caller and relationship (if other than patient-full name): Patient Call back number: Ok to leave a message: Yes Reason for call: Viet stated he is sending a precise & articulate message with details regarding the event that happened at the end of last week. He is asking Dr. Adame to look out for this, andcall when she can. Disposition of Call (choose one and remove others): ??? Routine Message sent to the Nurse: Yes documented in this encounter Plan of Treatment Upcoming Encounters Date Type Specialty Care Team Description 07/02/2022 Office Visit Neurology Candi Sanchez, STITCH SEPARATOR [facility] er [address] [place] [address] (Wo rk) documented as of this encounter Visit Diagnoses Not on filedocumented in this encounter Care Teams Fitness Worker Relationship Specialty Start Date End Date Markus Ascencio MD PCP - General Internal Medicine 04/09/17 [address] [place] [address] documented as of this encounter
--- OUTSIDE RECORDS SUMMARY | 2022-06-11 16:19 | XMS_ITS | Encounter Summary ---
:1960 Author Organization [facility] Address [address] [place] [address] Care Team Providers Name Role Phone Markus Ascencio MD Primary Care Provider Encounter Details Date Type Department Care Team Description 10/06/2020 Orders Only Neurology at [facility] [place] Rosa Isela Villalba MD [facility] [address] [place] [address] NEUROLOGY [phone] [place], [place] [address] Social History Tobacco Use Types [...] Description 07/02/2022 Office Visit Neurology Candi Sanchez, COMPANY PILOT [facility] er [address] [place], [place] [address] (Wo rk) documented as of this encounter Visit Diagnoses Diagnosis Acute intractable headache, unspecified headache type documented in this encounter Care Teams Personnel Research Scientist Relationship Specialty Start Date End Date Sonu, Markus H, MD PCP - General Internal Medicine 04/09/17 [address] [place] [address] documented as of this encounter
--- OUTSIDE RECORDS SUMMARY | 2022-06-11 16:19 | XMS_ITS | Encounter Summary ---
:1960 Author Organization [place] [address] Care Team Providers Name Role Phone Markus Ascencio MD Primary Care Provider Reason for Visit Reason Onset Date Comments Labs Only 10/04/2020 Encounter Details Date Type Department Care Team Description 10/04/2020 Telephone Neurology at [facility] Rosa Isela Villalba MD Labs Only [facility] ana [facility] [place] [address] NEUROLOGY [phone] [place], [place] [address] (Wo rk) Social History Tobacco [...] this encounter Miscellaneous Notes Telephone Encounter - Renetta Hodges - 10/04/2020 12:42 PM EST Call Center / [place] Message - Lab/Test being requested to be done Provider patient sees in Clinic:Rosa Isela villalba Caller: self If not Pt / Relation to pt: self Call back Number: [phone] OK to leave message: yes Reason for call: request for lab or test orders ??? What labs or tests are being requested: CPR acute inflammation, Sedimentation rate, CBC with diff ??? Where does the caller request the order be sent: [facility] in [place] ORDERS IN THE CHART: YES Send request to provider medical records secretary who can then print and fax the order Any additional information for the nurse/provider: Patient states [facility] is closer to him for these labs to be drawn. Any questions or concerns please call patient. Disposition of call ( choose one and remove the other) ??? Message sent to clinic medical records secretary documented in this encounter Plan of Treatment Upcoming Encounters Date Type Specialty Care Team Description 07/02/2022 Office Visit Neurology Candi Sanchez, SHOWROOM SALESPERSON [facility] er [address] [place], [place] [address] (Wo rk) documented as of this encounter Visit Diagnoses Not on filedocumented in this encounter Care Teams Cycle Director Relationship Specialty Start Date End Date Markus Ascencio MD PCP - General Internal Medicine 04/09/17 [address] [place] [address] documented as of this encounter
--- OUTSIDE RECORDS SUMMARY | 2022-06-11 16:19 | XMS_ITS | Encounter Summary ---
:1960 Author Organization [facility] [place] [address] Care Team Providers Name Role Phone Markus Ascencio MD Primary Care Provider Encounter Details Date Type Department Care Team Description 10/10/2020 Notes Only Pain and Spine Cent[facility] [place] [facility] [place] [address] Social History Tobacco Use Types Packs/Day [...] documented as of this encounter Progress Notes Aminata Bishop E - 10/10/2020 3:18 PM EST Procedure: Left TON, C3, C4, C5, C6 MBB MRI required? no (If yes, verify that updated MRI is in eDH) (Atlanto-Axial Joint injection, JHONNY; 1 year or <)(Caudal GERMAN, LESI, Thoracic GERMAN, TFESI Lumbar & Cervical; 2 years or <) Referring Provider: Nelson Casillas MD Are you on any blood thinners? no (If yes, specify medication type and prescribing provider for anticoagulant hold request) Medication: n/a Prescribing provider: n/a Anticoagulant Medication Therapy Protocol Guide for Procedures: Medication Must stop prior May resume Labs Coumadin (Warfarin) 5 days Per Prescriber 1 hour prior (<1.2) PT/INR Plavix (Clopidogrel) 7 days Per Prescriber n/a Fragmin (Dalteparin) 24 hours Per Prescriber n/a Lovenox (Enoxaparin) 24 hours Per Prescriber n/a Ticlid (Ticlopidine) 14 days Per Prescriber n/a Innohep (Tinzaparin) 24 hours Per Prescriber n/a Aggrenox (Dipyridamole) 7 days Per Prescriber n/a Pletal (Cilostazol) 2 days Per Prescriber n/a Pradaxa (Dabigretran) 5 days Per Prescriber n/a Xarelto (Rivaroxaban) 3 days 24 hours after n/a Eliquis (Apixaban) 3 days Per Prescriber n/a Inlyta (Axitinib) 24 hours 48 hours after n/a Agrylin (Anagrelide) N/a n/a Day of procedure Platelet count Effient (Prasugrel) 7 days Per Prescriber n/a Brilinta (Ticagrelor) 5 days Per Prescriber n/a Trental (Pentoxifylline) 2 days Per Prescriber n/a Aspirin (ASA, Alysha, Excedrin) 6 days Per Prescriber n/a Aggrastat (Tirofiban) 8 hours Per Prescriber n/a Angiomax (Bivalirudin) Must be discussed with provider before scheduling Per Provider Argatroban Must be discussed with provider before scheduling Per Provider Arixta (Fondaparinux) 4 days Per Prescriber n/a Effient (Prasugrel) 7 days Per Prescriber n/a Elmiron (Pentosan) 7 days Per Prescriber n/a Heparin, subq (Hemochron) 12 hours Per Prescriber n/a Integrelin (Eptifibatide) 8 hours Per Prescriber n/a Iprivask (Desirudin) Must be discussed with provider before scheduling Per Provider Normiflo (Ardeparin) 24 hours Per Prescriber n/a Persantine (Dipyridamole) 2 days Per Prescriber n/a Reopro (Abciximab) 2 days Per Prescriber n/a Are you taking any NSAIDs? yes Type of NSAID: Diclofenac and Aleve Non-Steroidal Anti-Inflammatory Drug Guidelines: Medication Other Names Recommended Discontinuation Can Resume Aspirin - 81 mg and 325 mg (Note: If recommended or prescribed by provider, contact Pain Management)ASA, Alysha, Excedrein 6 days Per Prescriber Diclofenac Voltaren 1 day 24 hours after Etodolac Lodine 2 days 24 hours after Flurbiprofen Ansaid 7 days 24 hours after Ibuprofen Advil, Motrin, Midol 1 day 24 hours after Indomethicin Indocin 2 days 24 hours after Ketorolac Toradol 1 day 24 hours after Meloxicam Mobic 4 days 24 hours after Nabumetone Relafen 6 days 24 hours after Naproxen Naprosyn, Aleve 4 days 24 hours after Oxaprozin Daypro 10 days 24 hours after Piroxicam Feldene 10 days 24 hours after Salsalate Disalcid 1 day 24 hours after Nutritional Supplements Fish Oil, Ginko Biloba, Garlic, Vitamin E, Bromelain, Nattokinase 7 days 24 hours after Currently taking any oral steroids (i.e. prednisone) or have you had a steroid injection within the past two weeks? n Are you currently taking or have you recently been treated with antibiotics? no Have you been in the ER or hospitalized recently? no If yes. Why? Do you have any allergies to anesthetics or steroids? no Are you diabetic? no (In the case of type I diabetes, steroids injections can make blood sugar spike) Is this being billed to workers comp or your regular insurance (verify insurance)? Worker's Comp no Insurance: [place] Medicaid Completed by: Aminata [place] documented in this encounter Plan of Treatment Upcoming Encounters Date Type Specialty Care Team Description 07/02/2022 Office Visit Neurology Candi Sanchez, SPECIAL AGENT [employer] [facility] [address] [place], [place] [address] (Wo rk) documented as of this encounter Visit Diagnoses Not on filedocumented in this encounter Care Teams Tire Room Supervisor Relationship Specialty Start Date End Date Markus Ascencio MD PCP - General Internal Medicine 04/09/17 [address] [place] [address] documented as of this encounter
--- OUTSIDE RECORDS SUMMARY | 2022-06-11 16:19 | XMS_ITS | Encounter Summary ---
:1960 Author Organization [facility] [place] [address] Care Team Providers Name Role Phone Markus Ascencio MD Primary Care Provider Encounter Details Date Type Department Care Team Description 05/25/2020 Telephone Pain and Spine Reji argu[place] [facility] [place] [address] Social History Tobacco Use Types Packs/Day [...] this encounter Miscellaneous Notes Telephone Encounter - Lakesha Coronado LNA - 05/25/2020 1:42 PM EDT Called regarding message patient sent wanting to schedule appt. Talked to and they are no longer in need of an appointment they will reach out if needed in the future Telephone Encounter - Lakesha Coronado LNA - 05/25/2020 1:41 PM EDT ----- Message from Xuan Smith sent at 05/20/2020 1:55 PM EDT ----- Regarding: FW: Request an Appointment Contact: ----- Message ----- From: Naomi Gonzalez Sent: 05/20/2020 11:10 AM EDT To: [facility] Securities Sales Associate Subject: FW: Request an Appointment ----- Message ----- From: Viet Mathis Sent: 05/19/2020 4:53 PM EDT To: [facility] Neu[facility] Securities Sales Associate Subject: Request an Appointment Request submitted by Viet Mathis [[id number]] on 05/19/2020 at 4:53:48 PM Form Title: Request an Appointment Submitted Data From: Viet Mathis Request appt with: Susan Galeas APRN [[id number]] in Neurology at [facility] Would accept with: Next available provider Preferred date range: 05/19/2020 thru 07/20/2020 Preferred times: Mon-Morning, Mon-Afternoon Tu-Morning, Tu-Afternoon Sat- Morning, Sat-Afternoon Thur-Morning, Th-Afternoon Fri-Morning, Sat-Afternoon Need Animal Care Taker: No Reason for visit: Ashia, I was hoping to direct this email to the Pain and Spine clinic at [facility]. I think i have a pinched nerve near where the upper trapezius joins the skull. documented in this encounter Plan of Treatment Upcoming Encounters Date Type Specialty Care Team Description 07/02/2022 Office Visit Neurology Candi Sanchez APRN [facility] [address] [place], [place] [address] (Wo rk) documented as of this encounter Visit Diagnoses Not on filedocumented in this encounter Care Teams Manhole Stripper Relationship Specialty Start Date End Date Markus Ascencio MD PCP - General Internal Medicine 04/09/17 [address] [place] [address] documented as of this encounter
--- OUTSIDE RECORDS SUMMARY | 2022-06-11 16:19 | XMS_ITS | Encounter Summary ---
:1960 Author Organization [facility] [place] [address] Care Team Providers Name Role Phone Markus Ascencio MD Primary Care Provider Reason for Referral Diagnostic Test (Routine) - Closed Specialty Diagnoses / Procedures Referred By Contact Refer red To Contact Radiology Diagnoses Generalized weakness Miriam Adame MD [facility] Rad Mri Procedures MRI Cervical Spine wwo Contrast [facility] [place] [address] [place] [address] Referral ID Status Reason Start Date Expiration Date Visits V isits Requested Authorized [id number] Closed Specialty 07/21/2020 01/17/2021 1 1 Service Requested Reason for Visit Diagnostic Test (Routine) - Closed Specialty Diagnoses / Procedures Referred By Contact Refer red To Contact Radiology Diagnoses Generalized weakness Miriam Adame MD [facility] Rad Mri Procedures MRI Cervical Spine wwo [facility] [place] [address] [place] [address] Referral ID Status Reason Start Date Expiration Date Visits V isits Requested Authorized [id number] Closed Specialty 07/21/2020 01/17/2021 1 1 Service Requested Encounter Details Date Type Department Care Team Description 07/23/2020 Hospital Encounter [place] [facility] [place]iam Adame Generalized daily [facility] MD [place], [place] CENTER [address] NEUROLOGY DEPT [phone] [place], [place] [address] Social History Tobacco Use Types [...] 07/02/2022 Office Visit Neurology Candi Sanchez APRN [facility] [place], [place] [address] (Wo rk) documented as of this encounter Procedures Procedure Name Priority Date/Time Associated Diagnosis Comme nts MRI CERVICAL SPINE Routine 07/23/2020 3:47 PM Generalized weak ness Results for this WITH/WO CONTRAST EDT procedure a re in the results section. documented in this [...] please contact e number below. ? Narrative 07/23/2020 8:16 PM EDT EXAMINATION: MRI [...] below. Miriam Adame MD IMG MRI ORDERABLES documented in this encounter Visit Diagnoses Diagnosis Generalized weakness Other malaise and fatigue documented in this encounter Administered Medications Inactive Administered Medications - up to 3 most recent administrations Medication Order MAR Action Action Date Dose Rate Site gadoterate meglumine (DOTAREM) 0.5 Given 07/23/2020 3:47 PM EDT 16 mLs mmol/mL (376.9 mg/mL) injection 15.88 mL 15.88 mL (0.2 mL/kg/dose ? 79.4 kg), Intravenous, ONCE PRN, 1 dose, Starting on 07/23/20 at 1547, Until 07/23/20 at 1547, Per Protocol, Radiology Contrast, Routine documented in this encounter Care Teams Freight And Passenger Agent Relationship Specialty Start Date End Date Markus Ascencio MD PCP - General Internal Medicine 04/09/17 [address] [place] [address] documented as of this encounter
--- OUTSIDE RECORDS SUMMARY | 2022-06-11 16:19 | XMS_ITS | Encounter Summary ---
:1960 Author Organization [facility] [place] [address] Care Team Providers Name Role Phone Markus Ascencio MD Primary Care Provider Reason for Visit Reason Comments Left Toe Pain left hallux rigidus correcti on, DOS 08/08/17 Encounter Details Date Type Department Care Team Description 01/07/2018 Office Visit Orthopaedics [place] [facility] Grabiel Burns MD S/P Left cartiva for [facility] 08/08/2017 [place] [address] ORTHOPAEDIC [phone] SURGERY [place], [place] [address] Social History Tobacco Use Types [...] Sign Reading Time Taken Comments Blood Pressure 148/80 01/07/2018 1:53 PM EST Pulse 65 01/07/2018 1:53 PM EST Temperature - - Respiratory Rate - - Oxygen Saturation - - Inhaled Oxygen Concentration - - Weight 79.4 kg (175 lb) 01/07/2018 1:53 PM EST Height 182.9 cm (6') 01/07/2018 1:53 PM EST Body Mass Index 23.73 01/07/2018 1:53 PM EST documented in this encounter Progress Notes Jalyn Randall MD - 01/07/2018 1:50 PM EST Problem List Items Addressed This Visit S/P Left cartiva for hallux rigidus 08/08/2017 Dr. Burns History of present illness: Viet Mathis is a 57 y.o. year-old male who is ~5-6 months s/p the above procedure. He had a fluoroscopic injection of his right MTP this morning, which alleviated all of his pain. He endorses no pain on the left hallux with ambulation, but will feel aching after hours of skiing. Patient does 4-5 marathons with cross country skiing, each one lasting 21mi. Denies any numbness or tingling in bilateral LE. Past medical history: Patient Active Problem List [...] (VOLTAREN) 75 mg Tablet, Delayed Release (E.C.) No current facility-administered medications for this visit. Allergies: No Known Allergies Social history: Social History Substance Use Topics ??? Smoking status: Never Smoker ??? Smokeless tobacco: Never Used ??? Alcohol use Yes Comment: once in a while Review of systems: No chest pain or shortness of breath No fevers, night sweats or chills Vital signs: Temp: -- Physical Exam: NAD, sitting comfortably in the exam room. RLE: - small area of erythema from recent injection at MTP joint. No pain with ROM. Intact EHL / FHL. Sensation grossly intact in SP, DP, Sural, tibial, saph nerve distributions LLE: - Incision at left great toe intact, no erythema or drainage. Intact great toe dorsiflexion up to 40degrees. Little swelling. Intact EHL / FHL. Sensation grossly intact in SP, DP, Sural, tibial, saph nerve distributions Imaging: no XR of left foot today Assessment: 57 y.o. year-old male ~5-6 months from L great toe Cartiva for hallux rigidus. Plan: Patient is doing well, pain is greatly improved, with no signs of infection or complications. We discussed the longevity of Cartiva, and noted that little data is available in the [place] >5 years.He is aware that the majority of patients are not marathon racers, and that increased activity may result in earlier wear. Patient will call us if he would like to move forward with the same procedure on the R great toe. Follow up: 6 months w/ XR L foot. This plan was discussed with the patient and they are in agreement. All of the patient's questions were answered. The above dictation was made with voice recogonition software Grabiel Burns MD - 01/07/2018 1:50 PM EST I saw the patient with Dr. Randall and agree with her assessment and plan. 57-year-old now 6 months status post Cartiva implantation of his left great toe. He has been happy with his progress. He just completed a 20 km cross-country skiing race which he did well in. He did have some diffuse pain in both his great toes at the end of the race. This quickly resolved. He has had no redness, drainage, or signs of infection. He has dorsiflexion to approximately 40?? without pain. His swelling has decreasedsignificantly. Overall he is doing well. If he decides that he would like to move forward with the same procedure on the contralateral side, he will contact us. documented in this encounter Plan of Treatment Upcoming Encounters Date Type Specialty Care Team Description 07/02/2022 Office Visit Neurology Candi Sanchez, MANAGER LEAN [facility] [address] [place], [place] [address] (Wo rk) documented as of this encounter Visit Diagnoses Diagnosis S/P Left cartiva for hallux rigidus 2016 Dr. Burns documented in this encounter Care Teams Fisher Troll Line Relationship Specialty Start Date End Date Markus Ascencio MD PCP - General Internal Medicine 04/09/17 [address] [place] [address] documented as of this encounter
--- OUTSIDE RECORDS SUMMARY | 2022-06-11 16:19 | XMS_ITS | Encounter Summary ---
:1960 Author Organization [facility] [place] [address] Care Team Providers Name Role Phone Markus Ascencio MD Primary Care Provider Reason for Visit Reason Comments Neck Pain Physical Therapy (Routine) - Closed Specialty Diagnoses / Procedures Referred By Contact Refer red To Contact [facility] Sp[facility] Center Diagnoses Neck pain Nelson Casillas MD [facility] Spine DR [facility] [place] [address] [place] [address] Phone: Fax: Referral ID Status Reason Start Date Expiration Date Visits V isits Requested Authorized [id number] Closed Evaluate and 09/19/2020 09/19/2021 1 1 Treat Encounter Details Date Type Department Care Team Description 10/10/2020 Office Visit [facility] at Adelina Ortiz PT Neck pain [facility] [place] [address] Social History Tobacco Use Types Packs/Day [...] encounter Progress Notes Adelina Ortiz, PT - 10/10/2020 3:30 PM EST PHYSICAL THERAPY INITIAL EXAMINATION Date of First Exam/ First Treatment: 10/10/2020 Referring Provider: Nelson Casillas MD Diagnosis: 1. Neck pain 2. 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 He was seen with the expectation to see if there is anything that can be done from an exercise perspective to ease the pain and improve his ability to function. History of Present Illness: Mr. Mathis reports approximately 10 years ago he began to have neckpain and stiffness. The symptoms have waxed and waned over time but seem to have worsened significantly since April 2020. Past treatments directed to the neck have included home traction, occipital release using a wedge, physical therapy, medication trials, and a steroid taper. He notes that the home traction and occipital release it is only temporarily helpful. He has been scheduled for occipital nerve block on and he is hopeful that this will result in an improvement of the symptoms. Previous imaging of the cervical spine has revealed multilevel degenerative changes. Mr. Mathis currently complains of neck pain with occipital headaches. The pain is rated 2/10 at its least and 9/10 at its worst. He denies upper extremity numbness, tingling, and weakness. Symptoms worsen when looking down, looking up, and turning. Symptoms ease when exercising, lying down or changing position and activity frequently. Sleep is occasionally disturbed due to the pain. Mr. Mathis's functional self care goal includes being able to turn and look over the shoulder. Patient Active Problem List Diagnosis Code ??? Bilateral foot pain M79.671, M79.672 ??? Atrial fibrillation I48.91 ??? Cardiomyopathy I42.9 ??? Atypical chest pain R07.89 ??? Bipolar II disorder F31.81 ??? Anxiety F41.9 ??? S/P Left cartiva for hallux rigidus 08/08/2017 Dr. Burns M20.21, M20.22 ??? Hallux rigidus of right foot M20.21 ??? Neck pain M54.2 ??? Cervicogenic headache R51.9 : Past Surgical History: Procedure Laterality Date ??? PRO HALLUX RIGIDUS W/CHEILECTOMY 1ST MP JT W/IMPLT Left 08/08/2017 CORRECTION HALLUX RIGIDUS, W IMPLANT (WRVU 8.01) performed by Grabiel Burns MD at [facility] MAIN OR ??? XR FLUORO INJECTION DRAINAGE JOINT SM RIGHT Right 11/11/2018 XR Fluoro Guided Joint Injection Small Right 11/11/2018 [facility] RAD XRAY : Social History: Mr. Mathis is a retired man who lives in [place], [place]. He does not use tobacco nor drink any alcohol and exercises regularly. His exercise program consists of running, rollerskating, and strength training. Physical Exam: Mr. Mathis is a very pleasant 60 y.o. male who moves about in the exam room without difficulty and appears uncomfortable while sitting. Sitting posture is poor and standing is good.Examination of the spine and is standing position reveals a protruded head posture. Active range of motion of bilateral shoulders full and painless. Active range of motion of the cervical spine is limited to 60 degrees flexion, 10 degrees extension, 50 degrees right rotation, 40 degrees left rotation,30 degrees right sidebending, and 25 degrees left sidebending. He has a 70% loss of retraction. Endrange extension, retraction, bilateral rotation, and bilateral sidebending all worsen the pain. Slouched sitting worsens the pain while sitting fully erect lessens it. Repeated movement testing of the cervical spine did seem to suggest a possible directional preference toward retraction. Physical Therapy Assessment: Mr. Mathis is a man with a long history of gradually worsening neck pain which has been interfering with his ability to function. The physical exam is significant for marked loss of cervical range of motion, poor sitting posture, and a directional preference toward retraction. The history and exam is consistent with mechanical neck pain with a directional preference.I believe that these deficits can improve with physical therapy treatments directed to the neck consisting of instruction in mechanical self- care, posture correction, and self mobilization exercises. Mr. Mathis has a good rehabilitation potential and I anticipate to meet with him for 6-7 additional visits over the next 6-7 weeks. Treatment Plan: The natural history of mechanical neck pain and rational for exercise based treat tofunction. Ment was reviewed. Mr. Mathis was given a home exercise program consisting of cervical retraction with or without overpressure 6-8 times per day. Along with the prescribed exercises, we d iscussed the principles of symptom self monitoring and posture correction of the sitting position. While in the clinic he trialed several lumbar supports and found The Original Yunior SlimLine to be most comfortable. Prior to leaving he was given the Treat Your Own Neck booklet and encouraged to read it. He will call with any questions, concerns, or if the pain worsens. Mr. Mathis will return to [facility] for a follow up appointment in 1 weeks time with the hope that he is ready to progress his home exercise program. Physical Therapy Goals in 4 weeks: 1. Independent with home exercise program 2. Able to turn and look over the shoulder without discomfort 3. Able to look down without discomfort The plan has been discussed with Viet Mathis and he has agreed with the planned treatment. Expect with skilled physical therapy interventions he will be able to return to prior level of function. 50 minutes were spent interviewing, assessing, and instructing Viet Mathis in a home exercise program. Clinical Presentation: Stable Evolving Unstable x Notes: The patient's clinical presentation is Evolving due to gradually worsening neck pain and stiffness Clinical decision making of low complexity using standardized patient assessment instrument and measurable assessment of functional outcome. documented in this encounter Plan of Treatment Upcoming Encounters Date Type Specialty Care Team Description 07/02/2022 Office Visit Neurology Candi Sanchez, CODING DIRECTOR [facility] [address] [place], [place] [address] (Wo rk) Scheduled Referrals Name Type Priority Associated Diagnoses Order S chedule Referral to Outpatient Referral Routine Neck pain Ordered: Physical Therapy 09/19/2020 documented as of this encounter Visit Diagnoses Diagnosis Neck pain Cervicalgia documented in this encounter Care Teams Senior Linux Systems Engineer Relationship Specialty Start Date End Date Markus Ascencio MD PCP - General Internal Medicine 04/09/17 [address] [place] [address] documented as of this encounter
--- OUTSIDE RECORDS SUMMARY | 2022-06-11 16:19 | XMS_ITS | Encounter Summary ---
:1960 Author Organization [facility] [address] Care Team Providers Name Role Phone Markus Ascencio MD Primary Care Provider Reason for Visit Reason Onset Date Comments Medication Refill 09/23/2020 Encounter Details Date Type Department Care Team Description 09/23/2020 Refill Neurology at [facility] [place] Miriam Adame MD Episodic weakness [facility] [place] [address] NEUROLOGY DEPT [phone] [place], [place] [address] (Wo rk) Social History Tobacco [...] Description 07/02/2022 Office Visit Neurology Candi Sanchez, PURCHASING ANALYST [facility] [address] [place] [address] (Wo rk) documented as of this encounter Visit Diagnoses Diagnosis Episodic weakness documented in this encounter Care Teams Waste Disposal Attendant Relationship Specialty Start Date End Date Markus Ascencio MD PCP - General Internal Medicine 04/09/17 [address] [place] [address] documented as of this encounter
--- OUTSIDE RECORDS SUMMARY | 2022-06-11 16:19 | XMS_ITS | Encounter Summary ---
:1960 Author Organization [facility] [place] [address] Care Team Providers Name Role Phone Markus Ascencio MD Primary Care Provider Reason for Referral Physical Therapy (Routine) - Closed Specialty Diagnoses / Procedures Referred By Contact Refer red To Contact [facility] Spine Center Diagnoses Neck pain Nelson Casillas MD [facility] Spine DR [facility] SPINE [address] [address] Phone: Fax: Referral ID Status Reason Start Date Expiration Date Visits V isits Requested Authorized [id number] Closed Evaluate and 09/19/2020 09/19/2021 1 1 Treat Consultation (Routine) - Closed Specialty Diagnoses / Procedures Referred By Contact Refer red To Contact [facility] Diagnoses Neck pain Nelson Casillas MD [facility] [address] [address] Phone: Fax: Referral ID Status Reason Start Date Expiration Date Visits V isits Requested Authorized [id number] Closed Consult, 09/19/2020 09/19/2021 1 1 Test & Treat Reason for Visit Reason Comments Neck Pain Bilateral Arm Pain Bilateral Hand Pain Consultation (Urgent) - Specialty Diagnoses / Procedures Referred By Contact Refer red To Contact [facility] Diagnoses Episodic weakness Spine - Cervical spondylosis / MRI 07/2020 in [facility] Miriam Adame, [facility] Spine [facility] [address] [place] [phone] Fax: Referral ID Status Reason Start Date Expiration Date Visits V isits Requested Authorized [id number] Consult, 08/16/2020 08/16/2021 3 3 Test & Treat Encounter Details Date Type Department Care Team Description 09/19/2020 Office Visit Pain and Spine Center at Nelson Casillas MD Neck pain [facility] [place] [address] [place] [address] [phone] (Wo rk) Social History Tobacco Use Types [...] Sign Reading Time Taken Comments Blood Pressure 144/89 09/16/2020 2:12 PM EDT Pulse 101 09/16/2020 2:12 PM EDT Temperature 36.5 ??C (97.7 ??F) 09/16/2020 2:12 PM EDT Respiratory Rate - - Oxygen Saturation - - Inhaled Oxygen Concentration - - Weight 78.5 kg (173 lb) 09/16/2020 2:12 PM EDT Height 182.9 cm (6') 09/16/2020 2:12 PM EDT Body Mass Index 23.46 09/16/2020 2:12 PM EDT documented in this encounter Progress Notes Cassie Parra LNA - 09/19/2020 10:00 AM EDT Confirmed with pt that a detailed line by line medication and allergy review was performed by Cassie Parra as documented on 09/16/20 as part of the telephone Intake process. Confirmed with pt that there have been no medication/allergy additions or changes over the previous 3 days. Nelson Casillas MD - 09/19/2020 10:00 AM EDT Chief complaint: Neck pain History of present illness: Mr. Mathis is a 6-year-old male whom I am seeing in consultation for Dr. Adame in regards to his neck pain. He notes that he has had some degree of neck pain for many years, though he had an acute exacerbation this past April, which was insidious in onset. He is right-hand dominant. He denies any pain radiating down into his arms, though he does note some intermittent numbness in the ulnar aspect of the left hand. He denies weakness. Pain tends to come on without any clear inciting event. He finds it applying pressure to his occiput can give him some relief. The paindoes not bother him at night. He denies change in his gait or fine motor skills. He denies fevers orchills, though he does have these episodes of intermittent fatigue and body aches. He denies any change in his bowel or bladder function. He has taken diclofenac and naproxen with some benefit. He tried Flexeril without improvement. He worked with a physical therapist but was unable to make much progress. He has not had prior cervical injections or prior spinal surgery. Past medical history: Question of atrial fibrillation and cardiomyopathy Past surgical history: Foot surgery Medications and allergies were reviewed and are in EDH. Family history: Cancer Social history: The patient is retired. He does not smoke or drink. Review of systems: All negative except musculoskeletal as above. Physical exam Patient is 6 feet tall, 173 pounds, with a BMI of 23.5 General: Patient is comfortable, no acute distress Neck: His neck is nontender to palpation. He can flex 30 degrees, extend 30 degrees, rotated 50 degrees, and side bend 15 degrees. Neurological exam: He walks with a normal gait. He can perform tandem gait. Motor exam reveals 5/5 strength in all upper extremity motors. He has a normal sensory exam. Reflexes are 2/4 in the upper extremities, 2/4 at the knees, and 1/4 at the ankles. Spurling's is negative bilaterally. Danielle's isnegative bilaterally. He has no clonus. Shoulder exam: He has normal, painless range of motion of both shoulders. Vascular: He has palpable pulses bilaterally. Imaging: AP and lateral flexion/extension x-rays of the cervical spine from 09/19/2020 were reviewed. These show slight anterolisthesis with flexion at C2- C3 and C3-C4, with a C2-C3 listhesis reducing with extension. There is severe spondylosis at C4-C5, C5-C6, and C6-C7 with anterior and posterior osteophytes and near complete disc height loss. MRI of the cervical spine from 07/23/2020 was reviewed. This shows spondylosis most pronounced from C4-C7. At C3-C4, there is severe left sided foraminal narrowing. At C4-C5, there is severe left sided foraminal narrowing. C5-C6, there is severe right sided foraminal narrowing. C6-C7, there is moderate-severe bilateral foraminal narrowing. There is no spinal cord compression. Assessment/plan: Mr. Mathis is a 60-year-old male who presents with longstanding neck pain thathas been worse for the last 5 months. He has significant spondylosis from C3-C7, most pronounced from C4-C7 with some hypermobility at C3-C4. He does not describe radicular pain, and he has no myelopathic signs or symptoms. We discussed treatment options for chronic neck pain that include continued medication, further physical therapy, and discussion of cervical injections, most likely medial branch blocks with radiofrequency ablation if indicated. He would like to visit with our physical therapist and also discuss injection options with the pain clinic providers, so we will set him up for a PT appointment and a comprehensive pain evaluation. There is no role for surgery in his case. documented in this encounter Plan of Treatment Upcoming Encounters Date Type Specialty Care Team Description 07/02/2022 Office Visit Neurology Candi Sanchez, LOCKSTITCH WAISTBAND SETTER [facility] [address] [place], [place] [address] (Wo rk) Scheduled Referrals Name Type Priority Associated Diagnoses Order S chedule Referral to Pain Outpatient Referral Routine Neck pain Orde red[facility] 09/19/2020 (Internal only) Referral to Outpatient Referral Routine Neck pain Ordered: Physical Therapy 09/19/2020 documented as of this encounter Visit Diagnoses Diagnosis Neck pain Cervicalgia documented in this encounter Care Teams Career Counselor Relationship Specialty Start Date End Date Markus Ascencio MD PCP - General Internal Medicine 04/09/17 [address] [place] [address] documented as of this encounter
--- OUTSIDE RECORDS SUMMARY | 2022-06-11 16:19 | XMS_ITS | Encounter Summary ---
:1960 Author Organization [facility] [place] [address] Care Team Providers Name Role Phone Markus Ascencio MD Primary Care Provider Reason for Visit Reason Onset Date Comments Appointment 08/19/2018 Encounter Details Date Type Department Care Team Description 08/19/2018 Telephone Orthopaedics at [facility] Grabiel Patel MD Appointment [facility] [place] [address] ORTHOPAEDIC SURGERY [phone] [place] [id number] (Wo rk) Social History Tobacco Use Types [...] this encounter Miscellaneous Notes Telephone Encounter - Kelly Hendrickson - 08/25/2018 7:27 AM EDT No response from patient, letter sent Telephone Encounter - Monica Strange - 08/21/2018 10:27 AM EDT Per My message below, LM #2 to call to schedule appointments all on the same day: ?? 1. Injection under fluoro right great toe 2. Xray left foot (order in) 3. Appointment in Dr. Patel's clinic: FVE: XR-L HALLUX RIGIDUS CORRECTION DOS 08/08/17 Telephone Encounter - Kelly Hendrickson Alejandra - 08/19/2018 11:21 AM EDT Per My message below, LM #1 to call to schedule appointments all on the same day: 1. Injection under fluoro right great toe 2. Xray left foot (order in) 3. Appointment in Dr. Patel's clinic: FVE: XR-L HALLUX RIGIDUS CORRECTION DOS 08/08/17 ?? Please assist in schedule same day appts for: fluoro injection R great toe, xray of left foot (ordered), follow up visit with Dr. Nunez team. Injection can be before or after dunia appt ? martha ?----- Message from Viet Dias to Grabiel Patel MD sent at 08/19/2018 ??9:16 AM ----- ? Ashia Thomas, ?Yes, I am aware of that issue - and i am not considering surgery in the right foot for this year. ?? So, let???s move forward and schedule a visit. ?Saturday-Wednesdays would work best for me. ? Thankyou! ? Viet Dias ? ----- Message ----- ? From: Office of GRABIEL PATEL MD ? Sent: 08/19/2018 ??8:48 AM EDT ? To: Viet Dias ? Subject: RE: Non-Urgent Medical Question ? Hi Mr. Dias, ? We are happy to assist in scheduling. Just so you are aware as a reminder, if you have an injection into your right great toe you would need to wait three months until you move forward with surgery due to increased risk of infection. If you are in agreement we can move forward with scheduling. ? Thanks ? Martha ? -- ? Gerry Mccurdy, [facility] ? Gun Examiner, Department of Orthopaedics ? Division of Sports Medicine ? ----- Message ----- ? From: Viet Dias ? Sent: 08/18/2018 ??2:17 PM EDT ? To: GRABIEL PATEL MD ? Subject: Non-Urgent Medical Question ? [facility]; ? 2 requests - hopefully to be scheduled during the same visit as I live a long distance away. ? 1.) ?? Consultation with Dr. Patel regarding last August' Cartiva surgery on left foot. ?Discuss 2nd cortisone injection in RIGHT foot. ?? Discuss future options. ? 2.) ??Cortisone injection UNDER X-Ray. ?? Right large toe. ?? Metatarsal Joint. documented in this encounter Plan of Treatment Upcoming Encounters Date Type Specialty Care Team Description 07/02/2022 Office Visit Neurology Candi Sanchez, DETECTIVE [place] [facility] CAROLINE [address] [address] (Wo rk) documented as of this encounter Visit Diagnoses Not on filedocumented in this encounter Care Teams Executive Administrative Assistant Relationship Specialty Start Date End Date Markus Ascencio MD PCP - General Internal Medicine 04/09/17 [address] [place] [address] documented as of this encounter
--- OUTSIDE RECORDS SUMMARY | 2022-06-11 16:19 | XMS_ITS | Encounter Summary ---
:1960 Author Organization [facility] Address [facility] [place] [address] Care Team Providers Name Role Phone Markus Ascencio MD Primary Care Provider Encounter Details Date Type Department Care Team Description 11/05/2018 Orders Only Orthopaedics at [facility] Kristofer Valadez S/P Left cartiva for [facility] MD [address] [facility] 08/08/[place] [address] ORTHOPAEDIC SURGERY [place], [place] [address] Social History Tobacco Use Types [...] Description 07/02/2022 Office Visit Neurology Candi Sanchez, COTTON FARMWORKER [facility] [address] [place], [place] [address] (Wo rk) documented as of this encounter Results XR Foot Min 3 [...] cartiva for hallux rigidus 2016 Dr. Burns S/P Left cartiva for hallux rigidus 2016 Dr. Burns documented in this encounter Care Teams Racing Board Marker Relationship Specialty Start Date End Date Markus Ascencio MD PCP - General Internal Medicine 04/09/17 [address] [place] [address] documented as of this encounter
--- OUTSIDE RECORDS SUMMARY | 2022-06-11 16:19 | XMS_ITS | Encounter Summary ---
:1960 Author Organization [facility] [place] [address] Care Team Providers Name Role Phone Markus Ascencio MD Primary Care Provider Encounter Details Date Type Department Care Team Description 01/07/2018 Hospital Encounter XRay at [facility] Grant, Grabiel Landeros, Heber mcpherson of [address] [place] [address] Dr ESQUIVEL right foot [facility] [phone] [place] [phone] [place] [address] Social History Tobacco Use Types Packs/Day Years [...] Sig Dispensed Refills Start Date End Date clonazePAM (KLONOPIN) 1 Take 1 mg by mouth 0 04/02 mg Tablet as needed. diclofenac (CATAFLAM) 50 Take 50 mg by mouth 0 mg Tablet daily. diclofenac (VOLTAREN) 75 Take 75 mg by mouth 0 09/16/2020 mg Tablet, Delayed 2 times daily. Release (E.C.) documented as of this encounter Plan of Treatment Upcoming Encounters Date Type Specialty Care Team Description 07/02/2022 Office Visit Neurology Candi Sanchez, MACHINE I CUTTER [facility] er [address] [place], [place] [address] (Wo rk) documented as of this encounter Procedures Procedure Name Priority Date/Time Associated Diagnosis Comme nts XR FLUORO INJECTION Routine 01/07/2018 12:00 PM Hallux rigidus of Results for this DRAINAGE JOINT SM EST right foot procedure are in RIGHT the results section. documented in this encounter Results XR Fluoro Guided Joint Injection Small Right (01/07/2018 12:00 PM EST) Anatomical Region Laterality Modality Right Radio Fluoroscopy Specimen (Source) Anatomical Location Collection Method / Collectio n Time Received Time / Laterality Volume Impressions 01/08/2018 12:36 PM EST Uneventful right foot first MTP joint injection under fluoroscopy. Resident/ Fellow: None Attending: Dr. Inga Leon Procedure performed by DANNY Gordon RN Narrative 01/08/2018 12:36 PM EST HISTORY: right 1st MTP joint pain, hallux rigidus. inject with steriod and lidocaine or equivalent Right foot, first MTP JOINT ??INJECTION UNDER FLUOROSCOPY TECHNIQUE: After an extensive conversation with the patient regarding risks and benefits, oral and written consent were obtained.? A pre- procedural time-out was performed, including review of the patie nt's relevant electronic medical record and allergies, as per [facility] protocol. The patient was placed supine on the flu oroscopic table. ??The skin overlying the right foot first MTP joint was prepped a nd draped in the usual aseptic manner. 1% Lidocaine was used to achieve local a nesthesia. Under fluoroscopic guidance, a 25-gauge needle was advanced into the joint space. ??Small amount of contrast was injected to the document needle plac ement. ??A mixture of Ropivacaine and depomedrol was injected. All needles rem liban at end of procedure. FINDINGS: 1. ??Small amount of injected contrast i n the joint space. 2. ??PAIN SCORE: ??Before: 0/10 ??After: ??0/10 3. Fluoroscopy time: 0.13 minutes 4. Medications: ??Lidocaine 1% - <5 ml, for subcutaneou s anesthesia ??Omnipaque 300: < 1ml A mixture composed of the following medi cation was prepared: Ropivacaine HCL ??0.5% - 1 ml (5mg) methylPREDNISolone acetate 40: 40 mg Total injected volume: 2ml COMPLICATIONS: None immediate. POST-PROCEDURE CARE: Information regardi ng monitor of infection, post- procedural pain and management of steroi d flare were reviewed with patient. Procedure Note Laine Correa, MACHINE I CUTTER - 01/08/2018Forma tting of this note might be different from the original. HISTORY: right 1st MTP joint pain, hallu x rigidus. inject with steriod and lidocaine or equivalent Right foot, first MTP JOINT INJECTION UN MELIDA FLUOROSCOPY TECHNIQUE: After an extensive conversation with the patient regarding risks and benefits, oral and written consent were obtained.? A pre- procedural time-out was performed, including review of the patie nt's relevant electronic medical record and allergies, as per [facility] protocol. The patient was placed supine on the flu oroscopic table. The skin overlying the right foot first MTP joint was prepped a nd draped in the usual aseptic manner. 1% Lidocaine was used to achieve local a nesthesia. Under fluoroscopic guidance, a 25-gauge needle was advanced into the joint space. Small amount of contrast was injected to the document needle plac ement. A mixture of Ropivacaine and depomedrol was injected. All needles rem liban at end of procedure. FINDINGS: 1. Small amount of injected contrast in the joint space. 2. PAIN SCORE: Before: 0/10 After: 0/10 3. Fluoroscopy time: 0.13 minutes 4. Medications: Lidocaine 1% - <5 ml, for subcutaneous anesthesia Omnipaque 300: < 1ml A mixture composed of the following medi [...] jection under fluoroscopy. Resident/ Fellow: None Attending: Dr. Inga Leon Procedure performed by DANNY Gordon RN Grabiel Burns MD IMG FLUORO ORDERABLES documented in this encounter Visit Diagnoses Diagnosis Hallux rigidus of right foot Hallux rigidus documented in this encounter Administered Medications Inactive Administered Medications - up to 3 most recent administrations Medication Order MAR Action Action Date Dose Rate Site ROpivacaine (PF) 5 mg/mL (0.5 %) 4 Given 01/07/2018 11:53 AM EST mL with methylPREDNISolone acetate 40 mg, iohexol 300 mg/mL 4 mL injection Intra-articular, ONCE, 1 dose, On Sat01/07/18 at 1215 documented in this encounter Care Teams Slackman Relationship Specialty Start Date End Date Markus Ascencio MD PCP - General Internal Medicine 04/09/17 [address] [place] [address] documented as of this encounter
--- OUTSIDE RECORDS SUMMARY | 2022-06-11 16:20 | XMS_ITS | Encounter Summary ---
:1960 [place] [address] Care Team Providers Name Role Phone Markus Ascencio MD Primary Care Provider Encounter Details Date Type Department Care Team Description 08/08/2017 Anesthesia Event Main Operating Room Mora Warren MD [facility] [place] [address] [facility] Nelson Simpson MD [facility] [place] [id number] [facility] [address] Anesthesia Record Procedure Summary Procedure Name Responsible Anesthesia Start Anesthesia Stop Anesthesiologist Time Time CORRECTION Mora Greenwood MD 08/08/17 0733 08/08/17 0 847 RIGIDUS, W IMPLANT (WRVU 8.01) (Left ) Events Date Time Event Comment 08/08/2017 0730 0733 AN Verify 0733 Start 0740 An Start Data 0745 Anesthesia Ready 0758 An Tourn Inflated 250 LLE. Appli ed by surgeon 0758 Procedure Start 0834 An Tourn Deflated 0838 Break/Relief In MORA BALDERAS MD 0840 an stop data 0846 Break/Relief Out 0847 Recovery or ICU Handoff Patient care was transferred to the destination unit staff after review of the patient's medica l history, current anesthetic/surgi kimberlyn status and plan, according to the Provider Handoff Checklist. 0847 Stop Name Total IV Lidocaine 60 mg Propofol 300 mg Propofol INF 801.84 mg ceFAZolin (ANCEF) 2g in dextrose 5% 100 mL 2 g lactated Ringers infusion 1,000 mL 400 mL Agents Name O2 Air N2O O2 Auxiliary Flowmeter 1 Blood No blood administrations on file. Lines, Drains, and Airways Type Details Placement Removal Incision 08/08/17; 0758; (left toe) 08/08/17 0758 by Norris, Perry Rojas RN PIV 08/08/17; 0620; cephalic 08/08/17 0620 by 1049 by vein (lateral side of Pedro, Holly Mittal RN Ly Vashti mauro RN arm), left; tdgo-mxq-flecey catheter system; 20 gauge; Pia BAILEY; distraction, intradermal injection, tolerated well; 0; 08/08/17; 1049 Supraglottic Oral Airway: 90 mm (4); 08/08/17 0824 by 7 0825 by Inserted by: Riri Harley CRNA R ichards, Emily I, CRNA documented in this encounter Social History Tobacco Use Types Packs/Day Years Used Date Never Smoker Smokeless Tobacco: Never Used Alcohol Use Standard Drinks/Week Comments No 0 (1 standard drink = 0.6 oz pure alcoho l) quit 2015. Formerly heavy Alcohol Habits Answer Date Recorded How often do you have a drink containing Not asked alcohol? How many drinks containing alcohol do you Not asked have on a typical day when you are drinking? How often do you have six or more drinks on Not asked one occasion? Comment: quit 2015. Formerly heavy 04/09/2017 Sex Assigned at Date Recorded Unknown 08/14/2021 2:22 PM EDT documented as of this encounter OR Notes Anesthesia Postprocedure Evaluation - Mora Balderas MD - 08/08/2017 10:53 AM EDT [facility] Department of Anesthesiology Post-procedure Note Patient: Viet Mathis Procedure Summary Date Anesthesia Start Anesthesia Stop Room / Location 08/08/17 0733 0852 [facility] Procedure Diagnosis Surgeon Responsible Provider CORRECTION HALLUX RIGIDUS, W IMPLANT (WRVU 8.01) (Left ) (Hallux rigidus) Grabiel Burns MD Welch, Marnie B, MD All Anesthesia Providers: Anesthesiologist: Mora Balderas MD CEO AND CO FOUNDER: Riri Rios CRNA Last (1hr) Vitals: BP Temp Pulse Resp SpO2 Patient Location: PACU/[facility] Level of Consciousness: Awake and Alert Pain Management: Satisfactory Analgesia PONV: None Cardiovascular Status: At Baseline and Hemodynamically Stable Respiratory Status: At Baseline and Room Air Postoperative Fluid Status: Intravascular EUvolemia Possible Anesthetic Complications: NONE apparent at time of evaluation Final Primary Anesthesia Type: Regional (The anesthetic type performed was the same as planned.) Comments: MORA BALDERAS MD Pt doing well with block, working on urinary retention currently, bladder scan pending Anesthesia Procedure Notes - Phylicia Alvarado - 08/08/2017 7:43 AM EDT Associated Order(s): ANESTHESIA BLOCK Procedure: Anesthesia Block Block: Post-op Pain Control, ankle block Start time: 08/08/2017 7:03 AM End time: 08/08/2017 7:13 AM Patient Location: Block Room Indication/Prep Position: supine Prep: chlorhexidine Laterality: left Skin Medication lidocaine 1% 5 ml Injection Information Ultrasound Guidance: live and fqc-im-joice Ultrasound guidance was used to identify the targeted neuronal structure. Ultrasound was also used to identify needle positon and to identify surrounding tissue (bone, muscle, and blood vessels) to prevent inadvertent intraneural or intravascular needle placement and injection. The spread of local anesthetic was confirmed with live ultrasound imaging. Injection technique:single-shot Needle Length: 5 cm Gauge: 21 Needle Type: I-esimi-ffcwp Medication injection made incrementally with aspirations. Ankle Block Nerve dosages Ropivicaine 0.5% Deep Peroneal 10 ml Saphenous 3 ml Superficial Peroneal 3 ml Sural 3 ml Tibial 10 ml Resident: MARKUS GRECO Resident: Fellow: Attending Physician: MORA BALDERAS ~~~~~~~~~~~~~~~~~~~~~~~~~~~~~~~~~~~~~~~~~~~~~~~~~~~~~~~~~~~~ Anesthesia Preprocedure Evaluation - Mora Balderas MD - 08/07/2017 8:37 PM EDT Pre-Anesthesia Evaluation for: Viet Mathis a 57 y.o. male. Procedure(s): CORRECTION HALLUX RIGIDUS, W IMPLANT (WRVU 8.01) Patient Active Problem List Diagnosis ??? Hallux rigidus of both feet ??? Atrial fibrillation History of ablation attempt x 2 [facility] ??? Cardiomyopathy Per [facility] referral, based possibly on nuclear stress test (details unknown) ??? Atypical chest pain ??? Bipolar II disorder ??? Anxiety ??? Bilateral foot pain No past medical history on file. No past surgical history on file. Social History Substance Use Topics ??? Smoking status: Never Smoker ??? Smokeless tobacco: Never Used ??? Alcohol use No Comment: quit 2015. Formerly heavy History Drug Use No No Known Allergies Medications: MAR and/or home medications have been reviewed. Physical Exam: There were no vitals filed for this visit. There is no height or weight on file to calculate BMI. Airway Assessment: Mallampati: I TM distance: >3 FB Neck ROM: full Cardiovascular Assessment: Rhythm: regular Pulmonary Assessment: breath sounds clear to auscultation Dental Assessment: Misc Assessment: IV access: Peripheral line Anesthesia Plan: ASA 2 MAC and regional, with a(n) intravenous induction This is a 57 y.o. male with a history of HLD, HTN, prior EtOH abuse, and bilateral hallux rigidus here for left hallux repair with implant. Medications allergies reviewed and listed below. Episode of atypical chest pain winter 2015; subsequent TTE w/ nml LVEF 55-60%, 1-2+MR, mild LVH; negative ETT. Excellent exercise tolerance w/ METS >10 on ETT. Appropriately NPO, denies JASON at present. Patient's documented history was negative for seizures, CVA, cardiopulmonary disease, GERD, hepatic/renal disease or coagulopathy. There is no evidence of any recent URI symptoms, fevers/chills, or other signs of infection. Allergies: No Known Allergies Type and Screen: No results found for: ABORH Anesthetic History: No prior anesthetic documentation. Denies personal or familial history of complications with prior anesthetics. Anesthetic Plan: MAC w/ ankle block, pt wants to be quite sleepy in OR Standard ASA monitoring Adequate IV access The patient was informed of the risks, benefits and alternatives of anesthesia. These risks included, but were not limited to, post-operative nausea and/or vomiting, pain, sore throat, dental/lip trauma, and other rare but serious complications such as major organ damage, awareness, severe allergic reactions, position-related nerve injuries, and need for blood transfusions. All questions sought and answered. Consent was signed and placed in chart. Region - Other Informed Consent: Anesthetic plan and risks discussed with patient. Plan discussed with CEO AND CO FOUNDER. PAT Staff Note documented in this encounter Miscellaneous Notes Addendum Note - Markus Greco MD - 08/08/2017 2:04 PM EDT Addendum created 08/08/17 1404 by Markus Greco MD Charge Capture section accepted documented in this encounter Plan of Treatment Upcoming Encounters Date Type Specialty Care Team Description 07/02/2022 Office Visit Neurology Candi Sanchez, IT APPLICATIONS DEVELOPER [facility] [address] [place], [place] [address] (Wo rk) documented as of this encounter Procedures Procedure Name Priority Date/Time Associated Diagnosis Comme nts ANESTHESIA BLOCK Routine 08/08/2017 8:04 AM Resul ts for this EDT procedure are i n the results section. documented in this encounter Results Anesthesia Block (08/08/2017 8:04 AM EDT) Narrative Mora Balderas MD - 08/08/2017 8:04 AM EDT Phylicia Alvarado MD ? 08/08/2017 ??7:47 AM Procedure: ??Anesthesia Block Block: Post-op Pain Control, ankle block Start time: 08/08/2017 7:03 AM End time: 08/08/2017 7:13 AM ?? Patient Location: Block Room ?? Indication/Prep Position: supine Prep: chlorhexidine Laterality: left Skin Medication lidocaine 1% 5 ml Injection Information Ultrasound Guidance: live and out-of-oziel ne ?Ultrasound guidance was used to id entify the targeted neuronal structure. ??Ultrasound was also used to identify needle positon and to identify surrounding tissue (bone, muscl e, and blood vessels) to prevent inadvertent intraneural or intravascular needle placement and injection. ?? The spread of local anesthetic was confi rmed with live ultrasound imaging. Injection technique:single-shot Needle Length: 5 cm Gauge: 21 Needle Type: M-pggup-yppbj Medication injection made incrementally with aspirations. Ankle Block Nerve dosages Ropivicaine 0.5% Deep Peroneal 10 ml Saphenous 3 ml Superficial Peroneal 3 ml Sural 3 ml Tibial 10 ml Resident: ? MARKUS GRECO Second Resident: ? Fellow: ? Attending Physician: ??MORA BALDERAS ? ? ~~~~~~~~~~~~~~~~~~~~~~~~~~~~~~~~~~~~~~~~ ~~~~~~~~~~~~~~~~~~~~ Mora Balderas MD CERAMICS ENGINEER [facility] documented in this encounter Visit Diagnoses Not on filedocumented in this encounter Administered Medications Inactive Administered Medications - up to 3 most recent administrations Medication Order MAR Action Action Date Dose Rate Site ceFAZolin (ANCEF) 2g in dextrose 5% Given 08/08/2017 7:47 AM EDT 2 g 100 mL 2 g, Intravenous, EVERY 3 HOURS, 1 dose, First dose on Denisha 08/08/17 at 0630, Administer over 30 Minutes, Redose after 3 hours., Intra-Operative (Intra-Procedure), Indication for (Active or Suspected): Prophylaxis lidocaine (PF) (XYLOCAINE) 100 mg/5 mL (2 %) Given 7 7:40 AM EDT 60 mg injection PRN, Starting on Denisha 08/08/17 at 0740, Until Denisha 08/08/17 at 0847, Anesthesia Intra-op, Routine propofol (DIPRIVAN) 10 mg/mL bolus injection Given 06/2017 8:04 AM EDT 100 mg (Anesthesia) PRN, Starting on Denisha 08/08/17 at 0740, Until Denisha 08/08/17 at 0847, Anesthesia Intra-op Given 08/08/2017 7:46 AM EDT 25 mg Given 08/08/2017 7:44 AM EDT 25 mg propofol (DIPRIVAN) Rate/Dose 08/08/2017 8:16 200 mcg/kg/min 92.5 mL /hr infusion Change AM EDT CONTINUOUS PRN, Starting on Denisha 08/08/17 at 0746, Until Denisha 08/08/17 at 0847, Anesthesia Intra-op, Routine Rate/Dose Change 08/08/2017 8:07 AM EDT 175 mcg/kg/min 81 mL/hr New Bag 08/08/2017 7:46 AM EDT 125 mcg/kg/min 57.8 mL/hr documented in this encounter Care Teams Wire Setter Relationship Specialty Start Date End Date Markus Ascencio MD PCP - General Internal Medicine 04/09/17 [address] [place] [address] documented as of this encounter
--- OUTSIDE RECORDS SUMMARY | 2022-06-11 16:20 | XMS_ITS | Encounter Summary ---
:1960 Author Organization [facility] [place] [address] Care Team Providers Name Role Phone Markus Ascencio MD Primary Care Provider Reason for Visit Reason Comments Bilateral Foot Pain Encounter Details Date Type Department Care Team Description 04/23/2017 Office Visit [place] [facility] [place] Burns [place] Hallux rigid of [facility] both feet [facility] [place] [address] ORTHOPAEDIC [phone] SURGERY [place] [id number] Social History Tobacco Use Types Packs/Day Years Used Date Never Smoker Alcohol Use Standard Drinks/Week Comments No 0 [...] Sign Reading Time Taken Comments Blood Pressure 118/71 04/23/2017 9:31 AM EDT Pulse 63 04/23/2017 9:31 AM EDT Temperature - - Respiratory Rate - - Oxygen Saturation - - Inhaled Oxygen Concentration - - Weight 72.6 kg (160 lb) 04/23/2017 9:31 AM EDT Height 182.9 cm (6') 04/23/2017 9:31 AM EDT Body Mass Index 21.7 04/23/2017 9:31 AM EDT documented in this encounter Progress Notes Alan Avina PA - 04/23/2017 9:30 AM EDT Chief complaint: Bilateral hallux rigidus, s/p bilateral great toe injection History of present illness: Viet Núñez is a 57 y.o. year-old male who presents today for follow-up after the above. The patient explains great relief with his injections, he explains almost 3months of complete great toe pain relief. He explains this, him through these appeared to skiing. Heexplains his symptoms are back. The patient denies any catching or locking or instability. Notes more irritation from the bump on the top of his great toes and irritation of the skin. He has been completing moleskin as well as padding of this area to help with this with good result. He explains that he has a future trip coming up, he is going to [place] on a long hike. He inquires about reinjection today versus prior to his trip. He also explains any other conservative modalities to help treat his great toe pain. Past medical history: Patient Active Problem List Diagnosis Date Noted ??? Hallux rigidus of both feet 04/23/2017 ??? Atrial fibrillation 04/09/2017 ??? Cardiomyopathy 04/09/2017 ??? Atypical chest pain 04/09/2017 ??? Bipolar II disorder 04/09/2017 ??? Anxiety 04/09/2017 ??? Bilateral foot pain 12/18/2016 History of blood clots or bleeding disorders: Denies Denies history of cardiac, lung, kidney, liver diease or diabetes Medications: ??? diclofenac (VOLTAREN) 75 mg Tablet, Delayed Release (E.C.) Allergies: No Known Allergies Social history: Social History Substance Use Topics ??? Smoking status: Never Smoker ??? Smokeless tobacco: Not on file ??? Alcohol use No Comment: quit 2015. Formerly heavy Review of systems: No chest pain or shortness of breath at baseline No fevers, night sweats or chills Questionnaire Responses: myD-H Hip & Knee 04/23/2017 PROMIS-10 General Health Fair PROMIS-10 Quality of Life Good PROMIS-10 Physical Health Fair PROMIS-10 Mental Health Fair PROMIS-10 Social Activity and Relationship Satisfaction Good PROMIS-10 Social Roles at Home and Work Good PROMIS-10 Everyday Physical Activities Completely PROMIS-10 Anxious or Depressed last 7 days Sometimes PROMIS-10 Fatigue last 7 days Moderate PROMIS-10 Pain last 7 days 5 PROMIS PHYSICAL HEALTH SCORE (range 16-68) 42.3 PROMIS MENTAL HEALTH SCORE (range 21-68) 41.1 Physical Exam: No Apparent distress Bilateral great toe extension to 30??, palpable dorsal osteophytes about the first MTP joints bilaterally. DP/PT pulses 2+. Imaging: Personal review of the patient's imaging reveals: None new today, images reviewed which show severe bilateral first MTP osteoarthritis with dorsal osteophyte, joint space narrowing, subchondral sclerosis. Assessment: 57 y.o. year-old male with bilateral first MTP osteoarthritis Plan: We are long discussion regards to treatment for first MTP osteoarthritis. We discussed conservative treatments with rest, ice, compression, elevation, NSAIDs, APAP. We discussed steel shank for the forefoot. We also discussed rigid stiff soled shoe. We discussed repeat injection. His custom cheilectomy versus fusion, recovery. Patient is receptive to this. He would like copy of his records during his travels in case he needs to follow up over there. Patient is directed to the secretaries for this. We can inject him prior to the trip. Half steel toe shanks provided. Follow up: When necessary for injection This plan was discussed with the patient and they are in agreement. All of the patient's questions were answered. The above dictation was made with voice recogonition software documented in this encounter Plan of Treatment Upcoming Encounters Date Type Specialty Care Team Description 07/02/2022 Office Visit Neurology Candi Sanchez, TECHNICAL STAFF ENGINEER [facility] [address], [place] [address] (Wo rk) documented as of this encounter Visit Diagnoses Diagnosis Hallux rigidus of both feet documented in this encounter Care Teams Account Resolution Specialist Relationship Specialty Start Date End Date Markus Ascencio MD PCP - General Internal Medicine 04/09/17 [address] [place] [address] (work) documented as of this encounter
--- OUTSIDE RECORDS SUMMARY | 2022-06-11 16:20 | XMS_ITS | Encounter Summary ---
:1960 [place] [address] Care Team Providers Name Role Phone Markus Ascencio MD Primary Care Provider Encounter Details Date Type Department Care Team Description 08/08/2017 Hospital Encounter Same Day Program at Grabiel Patel S/P Left cartiva for hallux rigidus 08/08/2017 Dr. Patel; Daisha Vogel MD Hallux rigidus of [facility] Rohit ORTHOPAEDIC [place], [place] SURGERY [address] [place], [place] [phone] [facility] Social History Tobacco Use Types Packs/Day Years [...] Sign Reading Time Taken Comments Blood Pressure 116/72 08/08/2017 8:52 AM EDT Pulse 90 08/08/2017 9:17 AM EDT Temperature 36.6 ??C (97.9 ??F) 08/08/2017 8:52 AM EDT Respiratory Rate 16 08/08/2017 8:52 AM EDT Oxygen Saturation 65% 08/08/2017 8:52 AM EDT Inhaled Oxygen Concentration - - Weight 77.1 kg (170 lb) 08/08/2017 6:09 AM EDT Height 182.9 cm (6') 08/08/2017 6:09 AM EDT Body Mass Index 23.06 08/08/2017 6:09 AM EDT documented in this encounter Discharge Instructions Discharge InstructionsVashti Monroy RN - 08/08/2017 9:05 AM EDT SAME DAY PROGRAM POST-OPERATIVE INSTRUCTIONS NERVE BLOCK PATIENTS What to expect after a nerve block Nerve blocks affect many types of nerves. The affected nerves control movement, pain, and normal sensation. This causes feelings such as ? Weakness ? Numbness ? Tingling ? Heaviness ? A feeling that your arm or leg has ???fallen asleep?? A nerve block can last for 24-48 hours, depending on the medications used. Usually the weakness wears off first, and then you will feel a numb/tingly sensation. Finally, the pain may come back. This can happen in any order. If you had a shoulder block, you may have other symptoms such as: ??? Mild shortness of breath ??? A hoarse voice ??? Blurry vision ??? Unequal pupils ??? Drooping of your face on the same side as the nerve block These are common and expected side effects of this type of nerve block. Symptoms usually go away within 12 hours. If these symptoms do not go away, please call the Anesthesiology Department at . If you have severe or prolonged shortness of breath, please go to the nearest emergency room. If you continue to feel the effects of the nerve block for longer than 48 hours, please call the Anesthesiology Department at . PAIN MEDICATION If needed, your surgeon will give you a prescription for pain medication. Start taking this medication before the nerve block wears off. Nerve blocks sometimes wear off during the night. It is a good idea to take your pain medicine as prescribed before going to sleep so you won???t wake up with pain. The idea is to have pain medication in your body before the nerve block wears off. To help prevent nausea, eat something before taking the pain medication. Once a nerve block starts to wear off, it is usually completely gone within 60 seconds. It is important to have pain medicine in your system before the block wears off completely. Helpful tips to protect the part of your body that is numb After a nerve block, you cannot feel pain, pressure, or extremes in temperature. Because your arm orleg is numb, it is more at risk for injury. For example, you could burn your arm or leg without knowing it. Here are some hints to help protect your limb while it is numb. ??? While you are awake, try to change positions of your arm or leg often. This will help you avoid putting too much pressure on the limb for long periods of time. ??? While sleeping, pad the blocked limb with pillows to avoid placing too much pressure on the limb. ??? If you have a cast or a tight dressing, check the color of your fingers/toes every couple of hours. Call your doctor if any look discolored. ??? If you had a shoulder, arm or hand nerve block, you may go home with a sling. The sling will help to keep your arm in the ideal position. Wear the sling at all times until feelings returns. If you do not have a sling, watch the position of the blocked arm to make sure it is in a safe location. ??? Ask your family or support people to help with the above hints. Questions? Please call the Anesthesiology Department at with concerns or questions. After hours, call the hospital brazing machine operator helper at and ask for the anesthesiologist loss prevention operations manager.POST ANESTHESIA INSTRUCTIONS Go home, rest, use caution on stairs. Change positions slowly. Do not smoke if you are alone. Diet light to regular as tolerated today. If nausea occurs start with clear liquids and progress slowly. No driving, operating machinery, alcoholic beverages and no important decisions for 24 hours. Monitor IV site for signs and symptoms of infection: increasing redness, swelling, foul drainage, ifoccurs contact M.D. Patients who have had endotrachial tubes (this tube, used by anesthesia department, is passed down your throat after you are asleep, to ensure safe air passage during your operation). A sore throat is normal due to the tube. Cold liquids or soothing lozenges will help ease the discomfort. The generalized muscle aches are due to the medication given to you just before the tube is inserted. As the medication wears off, you may develop muscle soreness, which usually goes away in 12-24 hours.Orthopaedic Surgery Same Day Discharge Instructions Viet Mathis 1960 Discharge Instructions: Activity: ??? You may put weight on your left leg while wearing the post-operative shoe ??? If a block was administered wear a sling (for upper extremity) or use crutches (for your lower extremity) until your block resolves and you regain function of your limb ??? Keep the operative extremity elevated above the level of the heart as much as possible for the next few days to help reduce swelling and pain. ??? Intermittently apply ice to the outside of the dressing for 20 minutes at a time throughout the first few days following surgery. This will help reduce pain and swelling. Keep a close eye on your skin to prevent ice tomas. Dressings: Keep the splint/cast/dressing placed in the operating room in place until you are seen back in follow-up. Bathing/showering: You should not let your wounds or dressings get wet until you are seen in follow-up. If you are going to shower, leave the splinted extremity out of the water, or cover with a sturdyplastic bag taped securely at the top prior to showering to prevent water from seeping in. It may beeasier to sponge bathe for now. Medications: 1. You will be sent home with oxycodone, a narcotic medication. Take this medication for pain as needed. Try to taper your use over the next week or two as your post-operative pain improves 2. In addition, you should take Tylenol. Take this medication around the clock (but do not exceed 3 grams in a 24-hour period). This will help with your pain and decrease your need for the narcotic medications. 3. The pain medication you are on can cause constipation, so increase your intake of fluids and fiber while you are taking them. You may also take an kjxl-eid-[id number] stool softener, like Senokot, to facilitate a bowel movement. 4. If you need a renewal on your narcotic pain medication, you need to give the Orthopedic clinic enough time to process your request. This can take up to three days, so plan accordingly. 5. No driving is allowed if taking narcotic pain medications. Call the Orthopaedic Clinic ([phone] during business hours M-F; after-hours or on weekends [phone] and ask for the Ortho resident on-call ) if you develop: fevers, chills, night sweats, nausea, vomitng, wound discharge, as well as numbness, tingling, increased pain, pain with active or passive extension of fingers/toes in the affected limb, or other questions or concerns. Future Appointments Date Time Provider Department Center 08/20/2017 1:20 PM Grabiel Patel MD [facility] Ortho [address] [place] [address] documented in this encounter Medications at Time of Discharge Medication Sig Dispensed Refills Start Date End Date clonazePAM (KLONOPIN) 1 Take 1 mg by mouth 0 04/02 mg Tablet as needed. diclofenac (CATAFLAM) 50 Take 50 mg by mouth 0 mg Tablet daily. oxyCODONE (ROXICODONE) 5 Take 1 tablet by 20 tablet 0 08/0808/20/2017 mg Tablet mouth every 4 hours as needed for Pain. diclofenac (VOLTAREN) 75 Take 75 mg by mouth 0 09/16/2020 mg Tablet, Delayed 2 times daily. Release (E.C.) documented as of this encounter H&P Notes Grabiel Patel MD - 08/08/2017 6:27 AM EDT The patient's history and physical exam have been reviewed. There has been no interval change from that of the pre-operative history and physical exam performed within the last 30 days. This patient isundergoing an orthopaedic surgical procedure. We will utilize nonpharmacological modalities to help with pain, however, this patient will require narcotic pain medication to treat acute, post-surgical,pain. The patient will be instructed to wean from these medications as soon as reasonably possible. The Patient has read, signed and understands the Acute Opioid Therapy Informed Consent. The Prescription Drug monitoring website has been queried and and this query recorded in the electronic medical record. Opioid PDMP 07/30/2017 07/29/2017 [place] PDMP Query Date 07/30/2017 07/29/2017 I spoke with and examined the patient on the date of the primary author's note, prior to proceeding to the operating room. I agree with the primary author's assessment and plan. I reviewed the risks, benefits, alternatives to, and recovery from the proposed procedure. I confirmed the correct operativesite. The patient expressed understanding and wished to proceed with operative treatment. Grabiel Patel MD [facility] Orthopaedic Surgery Attending documented in this encounter Miscellaneous Notes Op Note - Grabiel Patel MD - 08/08/2017 8:39 AM EDT [facility] Operative Note Patient Name: Viet Mathis : [id number] MR#: [id number] Case Date: 08/08/2017 Surgeon: Surgeon(s) and Role: * Grabiel Patel MD - Primary * Guerrero Garcia MD - *ASSISTING SURGEON * Elias Espinoza MD - Resident-Surgeon Rock Preoperative diagnosis: Hallux rigidus Postoperative diagnosis: Hallux rigidus Procedure(s) (LRB): CORRECTION HALLUX RIGIDUS, W IMPLANT (CARTIVA) (WRVU 8.01) (Left) Anesthesia: MAC Findings: 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 Condition: doing well without problems INDICATIONS: Mr. Mathis is a 57-year-old gentleman with significant hallux rigidus of his left great toe. After a thorough discussion of the risks and benefits, he elected to proceed with treatment of the hallux rigidus with implantation of a Cartiva implant. DESCRIPTION OF PROCEDURE: After being identified, marked and having preoperative consent confirmed in the preoperative holding area, the patient proceeded to the operative theater. A preoperative timeout was held and the patient received preoperative antibiotics. A left calf tourniquet was placed well below the level ofthe fibular head. His left leg was prepped and draped in a sterile fashion after a regional block and MAC anesthesia had been induced. We exsanguinated the foot and then elevated the tourniquet to 250 mmHg where it stayed for 36 minutes. We began with a dorsal approach to the first MTP joint. An incision was made on the dorsal skin overlying the extensor Hallucis longus tendon. Dissection was carried down until the tendon was identified. A dorsal arthrotomy was made just medial to the EHL tendon. We raised the capsule medially and laterally off of the proximal phalanx and off of the distal metatarsal. There was a large dorsal osteophyte which was removed from the metatarsal neck and the proximal phalanx. Examination of the joint revealed [id number] arthritis of the dorsal 75% of the metatarsal head, and approximately 50% of the dorsal proximal phalanx. Once we were able to plantar flex the great toe to approximately 90 degrees, and we assured that all dorsal osteophyte was removed, we used the targeting guide to place a wire into the central position of the metatarsal head. We checked this position on C-arm fluoroscopy. A 10 mm drill was used to create a bed for the Cartiva implant. Copious irrigation was used to remove bone fragments. The Cartiva implant was loaded onto the introducer. It was placed in the bed and sat approximately 1-3 mm proud of the metatarsal head, as expected. X-rays confirmed good placement and joint space opening. Dorsiflexion of the MTP joint was to approximately 45 degrees. We copiously irrigated the wound. The deep capsule was closed with 0 Vicryl. Then, 3-0 Vicryl were close the subcutaneous tissue. Nylon suture was used to close the skin. A dry sterile dressing was placed. The patient's anesthesia was reversed and he was discharged to the PACU in stable condition. Implant Name Type Inv. Item Serial No. Shoe Repairer Helper Lot No. LRB No. Used Action Cartiva Synthetic Cartilage Implant [id number] Left 1 Implanted Infection Bundle used? 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 Condition: doing well without problems Infection Bundle used? N/A Attestation: Case Date: 08/08/2017 I was present and I participated during the entire procedure (does not need to include opening and closing). (Please see the Surgical Encounter Summary for any Implant and Specimen details pertinent to this patient.) documented in this encounter Plan of Treatment Upcoming Encounters Date Type Specialty Care Team Description 07/02/2022 Office Visit Neurology Candi Sanchez, TUBE PUSHER [address] [facility] [address] [place], [place] [address] (Wo rk) documented as of this encounter Procedures Procedure Name Priority Date/Time Associated Comments Diagnosis XR FLUORO NO RAD <1HR Routine 08/08/2017 8:51 AM Results for this - OR USE EDT procedure are i n the results section. CORRECTION HALLUX 08/08/2017 7:35 AM Hallux rigidus RIGIDUS, W IMPLANT EDT (WRVU 8.01) EKG 12-LEAD Routine 08/08/2017 6:47 AM Hallux rigidus of Resu lts for this EDT left foot procedure are i n the results section. CORRECTION HALLUX Routine 08/08/2017 5:59 AM RIGIDUS, W IMPLANT EDT IMPLANTABLE DEVICES 08/08/2017 12:00 Resu lts for this SCAN AM EDT procedure are i n the results section. documented in this encounter Results XR Fluoro No Rad <1Hr - OR Use (08/08/2017 8:51 AM EDT) Specimen (Source) Anatomical Location Collection Method / Collectio n Time Received Time / Laterality Volume Narrative DH RAD - 08/08/2017 8:52 AM EDT This order does not need a radiologist i nterpretation. ?? Grabiel Patel MD IMG FLUORO ORDERABLES Performing Organization Address City/[facility] Phon e Number DH RAD RAD [place], [place] EKG 12 Lead (08/08/2017 6:47 AM EDT) Component Value Ref Range Test Analysis Performed Pathologis t Method Time At Signature Ventricular rate 54 BPM MUSE SYSTEM Atrial Rate 54 BPM MUSE SYSTEM P-R Interval 194 ms MUSE SYSTEM QRS Duration 106 ms MUSE SYSTEM Q-T Interval 464 ms MUSE SYSTEM QTC Calculated 440 ms MUSE SYSTEM (Bezet) Calculated P [place] 75 degrees MUSE SYSTEM Calculated R [place] 76 degrees MUSE SYSTEM Calculated T [place] 58 degrees MUSE SYSTEM INTERPRETATION Sinus bradycardia MUSE SY STEM Minimal voltage criteria for LVH, may be normal variant Early repolarization Borderline ECG When compared with ECG of 09-APR-2017 15:19, No significant change was found Confirmed by MD Carroll, Markus ([id number]) on 08/08/2017 3:13:20 PM Specimen Anatomical Collection Method Collection Time Receive d Time (Source) Location / / Volume Laterality 08/08/2017 6:47 AM 3:13 EDT PM EDT Grabiel Patel MD ECG ORDERABLES Performing Organization Address City/[facility]/ZIP Code Phon e Number MUSE SYSTEM SCAN DOC: IMPLANTABLE DEVICES (08/08/2017 12:00 AM EDT) Narrative 08/08/2017 12:00 AM EDT This result has an attachment that is no t available. Ordered by an unspecified provider. Scanning Provider MEDIA MGR SCAN EXT ORDR/RSLT documented in this encounter Visit Diagnoses Diagnosis S/P Left cartiva for hallux rigidus 2016 Dr. Patel Hallux rigidus of left foot Hallux rigidus documented in this encounter Administered Medications Inactive Administered Medications - up to 3 most recent administrations Medication Order MAR Action Action Date Dose Rate Site fentaNYL (PF) 50 mcg/mL 2mL Given 08/08/2017 7:10 AM EDT 25 mcg syringe 50 mcg, Intravenous, EVERY 5 MIN PRN, Pain, or prior to injection of local anesthetic., Starting on Denisha 08/08/17 at 0600, Until Denisha 08/08/17 at 1049, Hold for respiratory rate less than 8 breaths per minute. (maximum dose 200 mcg), Day of Surgery (Day of Procedure) lactated Ringers infusion 1,000 New Bag 08/08/2017 6:21 AM EDT 1,000 mLs 100 mL/hr mL 1,000 mL, at 100 mL/hr, Intravenous, CONTINUOUS, Starting on Denisha 08/08/17 at 0630, Until Denisha 08/08/17 at 1049, Day of Surgery (Day of Procedure) lidocaine (XYLOCAINE) 10 mg/mL (1 %) injection Given 0 08/08/2017 6:21 AM EDT 3 mg 3 mg 3 mg (0.3 mL), Subcutaneous, ONCE PRN, 1 dose, Starting on Denisha 08/08/17 at 0600, Until Denisha 08/08/17 at 0621, for discomfort with PIV insertion, Day of Surgery (Day of Procedure), Routine midazolam (PF) (VERSED) 1 mg/mL injection 1-4 Given 08/08/20 17 7:15 AM EDT 1 mg mg 1-4 mg, Intravenous, EVERY 5 MIN PRN, Starting on Denisha 08/08/17 at 0600, Until Denisha 08/08/17 at 1049, Sleep, or prior to injection of local anesthetic, Hold for delirium/agitation. (Maximum dose 5 mg)., Day of Surgery (Day of Procedure), Routine Given 08/08/2017 7:07 AM EDT 1 mg documented in this encounter Active and Recently Administered Medications Times are shown in EDT. Scheduled Medication Order 08/06/2017 08/07/2017 08/08/2017 ceFAZolin (ANCEF) 2g in dextrose 5% 100 mL (COMPLETED) 0702 (Given - Provider: Riri Fisher CRNA) 2 g, Intravenous, EVERY 3 HOURS, 1 dose, First dose on Denisha 08/08/17 at 0630, Administer over 30 Minutes, Redose after 3 hours., Intra-Operative (Intra- Procedure), Indication for (Active or Suspected): Prophylaxis Continuous Medication Order 08/06/2017 08/07/2017 08/08/2017 lactated Ringers infusion 1,000 mL (CANCELED) 06 (New Bag - Provider: Holly Chaves, LYNN)0733 (Anesthesia Volume Adjustment - Provider: Riri Fisher CRNA)0755 (Anesthesia Volume Adjustment - Provider: Riri Fisher CRNA) 1,000 mL, at 100 mL/hr, Intravenous, CON TINUOUS, Starting Denisha 08/08/17 at 0630, Until Denisha 08/08/17 at 1049, Day of Surgery (Day of Procedure) 0824 (Anesthesia Volume Adjustment - Provider: Riri Fisher CRNA) PRN Medication Order 08/06/2017 08/07/2017 08/08/2017 fentaNYL (PF) 50 mcg/mL 2mL syringe (CANCELED) 07 (Given - Provider: Holly Chaves RN) 50 mcg, Intravenous, EVERY 5 MIN PRN, St arting Denisha 08/08/17 at 0600, Until Denisha 08/08/17 at 1049, Pain, or prior to injection of local anesthetic., Hold for respiratory rate less than 8 breaths per minute. ( maximum dose 200 mcg), Day of Surgery (Day of Procedure), Routin e lidocaine (XYLOCAINE) 10 mg/mL (1 %) injection 3 mg (COMPLETED) 06 (Given - Provider: Holly Chaves RN) 3 mg (0.3 mL), Subcutaneous, ONCE PRN, 1 dose, Starting Denisha 08/08/17 at 0600, Until Discontinued, for discomfort with PIV insertion, Day of Surgery (Day of Procedure), Routine midazolam (PF) (VERSED) 1 mg/mL injection 1-4 mg (CANCELED) 0707 (Given - Provider: Holly Chaves RN)0715 (Given - Provider: Holly Chaves, RN) 1-4 mg, Intravenous, EVERY 5 MIN PRN, St arting Denisha 08/08/17 at 0600, Until Denisha 08/08/17 at 1049, Sleep, or prior to injection of local anesthetic, Hold for delirium/agitation. (Maximum dose 5 mg)., Day of Surgery (Day of Procedure), Routine documented in this encounter Care Teams Food Service Lead Relationship Specialty Start Date End Date Markus Ascencio MD PCP - General Internal Medicine 04/09/17 [address] [place] [address] documented as of this encounter
--- OUTSIDE RECORDS SUMMARY | 2022-06-11 16:20 | XMS_ITS | Encounter Summary ---
:1960 Author Organization [facility] Address [address] [place] [address] Care Team Providers Name Role Phone Markus Ascencio MD Primary Care Provider Encounter Details Date Type Department Care Team Description 07/03/2017 Orders Only Orth[facility]edics at [facility] Grabiel Burns MD Hallux rigidus of [facility] lef t foot ([address]) [place] [address] ORTHOPAEDIC [phone] SURGERY [place], [place] [address] Social History Tobacco Use Types [...] Description 07/02/2022 Office Visit Neurology Candi Sanchez, SLE[facility] [place] [address] (Wo rk) Scheduled Orders Name Type Priority Associated Diagnoses Order S chedule CORRECTION HALLUX Procedures Routine One Time f or 1 RIGIDUS, W IMPLANT Occurrenc es starting 07/03/2017 unti l 07/03/2017 documented as of this encounter Results EKG 12 Lead (08/08/2017 6:47 AM EDT) Component Value Ref Range Test Analysis Performed Pathologis t Method Time At Signature Ventricular rate 54 BPM MUSE SYSTEM Atrial Rate 54 BPM MUSE SYSTEM P-R Interval 194 ms MUSE SYSTEM QRS Duration 106 ms MUSE SYSTEM Q-T Interval 464 ms MUSE SYSTEM QTC Calculated 440 ms MUSE SYSTEM (Bezet) Calculated P [place] 75 degrees MUSE SYSTEM Calculated R [place] 76 degrees MUSE SYSTEM Calculated T [place] 58 degrees MUSE SYSTEM INTERPRETATION Sinus bradycardia MUSE SY STEM Minimal voltage criteria for LVH, may be normal variant Early repolarization Borderline ECG When compared with ECG of 09-APR-2017 15:19, No significant change was found Confirmed by MD Carroll, Markus ([id number]) on 08/08/2017 3:13:20 PM Specimen Anatomical Collection Method Collection Time Receive d Time (Source) Location / / Volume Laterality 08/08/2017 6:47 AM 7 3:13 EDT PM EDT Grabiel Burns MD ECG ORDERABLES Performing Organization Address City/State/ZIP Code Phon e Number MUSE SYSTEM documented in this encounter Visit Diagnoses Diagnosis Hallux rigidus of left foot - Primary Hallux rigidus documented in this encounter Care Teams Site Damage Prevention Technician Relationship Specialty Start Date End Date Markus Ascencio MD PCP - General Internal Medicine 04/09/17 [address] [place] [address] documented as of this encounter
--- OUTSIDE RECORDS SUMMARY | 2022-06-11 16:20 | XMS_ITS | Encounter Summary ---
:1960 Author Organization [facility] [place] [address] Care Team Providers Name Role Phone Markus Ascencio MD Primary Care Provider Reason for Visit Reason Onset Date Comments Appointment 06/20/2017 Encounter Details Date Type Department Care Team Description 06/20/2017 Telephone Orthopaedics at [facility] [place] Grabiel Burns MD Appointment [facility] [place] [address] ORTHOPAEDIC SURGERY [phone] [place] [id number] (Wo rk) Social History Tobacco Use Types [...] this encounter Miscellaneous Notes Telephone Encounter - Gema Andersen - 06/21/2017 10:20 AM EDT LM for patient indicating Dr. Burns has signed off on new xrays for his visit on 07/02. Orders entered and scheduled. He should call our office with any further questions or concerns. Telephone Encounter - Gema Andersen Izabela - 06/20/2017 4:52 PM EDT Patient requests new xrays for his upcoming consult with Dr. Burns. His last xrays were in December Jaclyn reviewed that we typically would not have a need to update these less than annually unless he had some sort of injury. He recently walked 500mi and his pain has increased since then, but denies injury. He has a strong preference for new xrays. Told him I would need to run this past Dr. Burns for his approval before placing the order and scheduling. We will respond with outcome and schedule the xray if approved. He expressed understanding and was appreciative of the call. documented in this encounter Plan of Treatment Upcoming Encounters Date Type Specialty Care Team Description 07/02/2022 Office Visit Neurology Candi Sanchez, TRAIN CONTROLLER [facility] [address] [place], [place] [address] (Wo rk) documented as of this encounter Results XR Foot Min 3 views Bilat (07/02/2017 1:46 PM EDT) Anatomical Region Laterality Modality Foot Bilateral Digital Radiography Specimen (Source) Anatomical Location Collection Method / Collectio n Time Received Time / Laterality Volume Impressions 07/02/2017 2:50 PM EDT Unchanged bilateral first MTP joint degenerative arthropathy. Narrative 07/02/2017 2:50 PM EDT EXAMINATION: XR FOOT MIN 3 VIEWS BILAT CLINICAL HISTORY: Bilateral foot pain TECHNIQUE: Frontal, lateral, and oblique weightbear ing radiographs of bilateral were obtained. COMPARISON: Bilateral foot radiographs dated 12/18/16 FINDINGS: Again noted is moderate to severe degene rative arthropathy of the bilateral first metatarsophalangeal joints charact erized by joint space narrowing, small to moderate-sized marginal osteophytes, subchondral cysts, and subchondral sclerosis, not significantly changed fro m 12/18/2016. No significant hallux valgus deformity appreciated. No fractur e or dislocation. Procedure Note Gerri Styles MD - 07/02/2017Formatting o f this note might be different from the original. EXAMINATION: XR FOOT MIN 3 VIEWS BILAT CLINICAL HISTORY: Bilateral foot pain TECHNIQUE: Frontal, lateral, and oblique weightbear ing radiographs of bilateral were obtained. COMPARISON: Bilateral foot radiographs dated 12/18/16 FINDINGS: Again noted is moderate to severe degene rative arthropathy of the bilateral first metatarsophalangeal joints charact erized by joint space narrowing, small to moderate-sized marginal osteophytes, subchondral cysts, and subchondral sclerosis, not significantly changed fro m 12/18/2016. No significant hallux valgus deformity appreciated. No fractur e or dislocation. IMPRESSION Unchanged bilateral first MTP joint dege nerative arthropathy. Grabiel Burns MD IMG DX ORDERABLES documented in this encounter Visit Diagnoses Diagnosis Bilateral foot pain Pain in limb Bilateral foot pain Pain in limb documented in this encounter Care Teams Bellman Driver Relationship Specialty Start Date End Date Markus Ascencio MD PCP - General Internal Medicine 04/09/17 [address] [place] [address] documented as of this encounter
--- OUTSIDE RECORDS SUMMARY | 2022-06-11 16:20 | XMS_ITS | Encounter Summary ---
:1960 Author Organization [facility] [place] [address] Care Team Providers Name Role Phone Markus Ascencio MD Primary Care Provider Encounter Details Date Type Department Care Team Description 08/08/2017 Surgery Main Operating Room Grabiel Patel MD [facility] Alejandra PATEL [facility] (WRVU 8.01) [facility] ORTHOPAEDIC [address] [place] [phone] Social History Tobacco Use Types Packs/Day Years [...] Pressure 116/72 08/08/2017 8:52 AM EDT Pulse 67 08/08/2017 8:52 AM EDT Temperature 36.6 ??C (97.9 ??F) [...] or questions. After hours, call the hospital head insulation board saw operator at and ask for the anesthesiologist conference services manager.POST ANESTHESIA INSTRUCTIONS Go home, rest, use [...] taking them. You may also take an mszc-pek-eiuhnci stool softener, like Senokot, to facilitate a bowel movement. 4. If you need a renewal on your narcotic pain medication, you need to give the Orthopedic clinic enough time to process your request. This can take up to three days, so plan accordingly. 5. No driving is allowed if taking narcotic pain medications. Call the Orthopaedic Clinic ([phone] during business hours M-F; after-hours or on weekends [phone] and ask for the Ortho resident on-call ) if you develop: fevers, chills, night sweats, nausea, vomitng, wound discharge, as well as numbness, tingling, increased pain, pain with active or passive extension of fingers/toes in the affected limb, or other questions or concerns. Future Appointments Date Time Provider Department Center 08/20/2017 1:20 PM Grabiel Patel MD [facility] [address] [place] [address] documented in this encounter Medications at Time [...] proceed with operative treatment. Grabiel Patel MD [place] [facility] Attending documented in this encounter Miscellaneous Notes Op Note - Grabiel Patel MD - 08/08/2017 8:39 AM EDT [facility] [place] Patient Name: Viet Mathis : [id number] MR#: [id number] Case Date: 08/08/2017 Surgeon: Surgeon(s) and Role: [...] proximal phalanx. Examination of the joint revealed prnz-zb-xaph arthritis of the dorsal 75% of the [...] Implant Name Type Inv. Item Serial No. Lawn Sprinkler Servicer Lot No. LRB No. Used Action Cartiva Synthetic Cartilage Implant [id number] Left 1 Implanted Infection Bundle used? N/A Attestation: Case Date: 08/08/2017 GRABIEL PATEL MD 08/08/2017 Brief Op Note - Grabiel Patel MD - 08/08/2017 8:38 AM EDT Brief Operative Note Patient Name: Viet Mathis : [id number] MR#: [id number] Case Date: 08/08/2017 Surgeon: Surgeon(s) and Role: [...] Description 07/02/2022 Office Visit Neurology Candi Sanchez, ENVELOPE MACHINE ADJUSTER [facility] [address] [place], [place] [address] (Wo rk) documented as of this [...] MD IMG FLUORO ORDERABLES Performing Organization Address City/[facility] Phon e Number DH RAD DH RAD [place], [place] EKG 12 Lead (08/08/2017 6:47 AM EDT) Component Value Ref Range Test Analysis Performed Pathologis t Method Time At Signature Ventricular rate 54 BPM MUSE SYSTEM Atrial Rate 54 BPM MUSE SYSTEM P-R Interval 194 ms MUSE SYSTEM QRS Duration 106 ms MUSE SYSTEM Q-T Interval 464 ms MUSE SYSTEM QTC Calculated 440 ms MUSE SYSTEM (Bezet) Calculated P [place] 75 degrees MUSE SYSTEM Calculated R [place] 76 degrees MUSE SYSTEM Calculated T [place] 58 degrees MUSE SYSTEM INTERPRETATION Sinus bradycardia [...] Patel MD ECG ORDERABLES Performing Organization Address City/[facility]/ZIP Code Phon e Number MUSE SYSTEM SCAN DOC: IMPLANTABLE DEVICES (08/08/2017 12:00 AM EDT) Narrative 08/08/2017 12:00 AM EDT This result has an attachment that is no t available. Ordered by an unspecified provider. Scanning Provider MEDIA MGR SCAN EXT ORDR/RSLT documented in this encounter Visit Diagnoses Not [...] 2g in dextrose 5% 100 mL (COMPLETED) 2696 (Given - Provider: Riri Fisher CRNA) 2 g, Intravenous, EVERY 3 HOURS, 1 dose, First dose on Denisha 08/08/17 at 0630, Administer over 30 Minutes, Redose after 3 hours., Intra-Operative (Intra- Procedure), Indication for (Active or Suspected): Prophylaxis Continuous Medication Order 08/06/2017 08/07/2017 08/08/2017 lactated Ringers infusion 1,000 mL (CANCELED) 0621 (New Bag - Provider: Holly Chaves RN)0733 (Anesthesia Volume Adjustment - Provider: Riri Fisher [...] (VERSED) 1 mg/mL injection 1-4 mg (CANCELED) 07 (Given - Provider: Holly Chaves, LYNN)0715 (Given - Provider: Holly Chaves, RN) 1-4 mg, Intravenous, EVERY 5 MIN PRN, St arting Denisha 08/08/17 at 0600, Until Denisha 08/08/17 at 1049, Sleep, or prior to injection of local anesthetic, Hold for delirium/agitation. (Maximum dose 5 mg)., Day of Surgery (Day of Procedure), Routine documented in this encounter Care Teams Training And Development Officer Relationship Specialty Start Date End Date Markus Ascencio MD PCP - General Internal Medicine 04/09/17 [address] [place] [address] documented as of this encounter
--- OUTSIDE RECORDS SUMMARY | 2022-06-11 16:20 | XMS_ITS | Encounter Summary ---
:1960 Author Organization [place] [address] Care Team Providers Name Role Phone Markus Ascencio MD Primary Care Provider Reason for Visit Reason Onset Date Comments Appointment 08/16/2017 Encounter Details Date Type Department Care Team Description 08/16/2017 Telephone [place] [facility] [place] Grabiel Burns MD Appointment [facility] [place] [address] ORTHOPAEDIC SURGERY [phone] [place] [id number] (Wo rk) Social History Tobacco Use Types [...] this encounter Miscellaneous Notes Telephone Encounter - Josefa Hawkins RN - 08/16/2017 4:00 PM EDT Incision looks better since elevation and ice. He feels that the elevation and ice did in fact help the puffiness and he is less concerned. He will decrease his activities as instructed by surgeon. He has no further questions or concerns at this time. 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 Future appointment: 08/20/17 Background information: [place] puffiness that wasn't there yesterday. Didn't wrap it as well as he usually does. He did go fora long bike ride today. No new pain, no fevers, no warmth, no drainage. Plan/Outcome: ?? No orders of the defined types were placed in this encounter. ?? Will elevate for one hour, erickson red area, and use ice for 20 min on and 20 min off. ?? Nursing will find a provider to evaluate images and contact patient in one hour. Pt instructed to contact staff for further questions or concerns. Pt agrees with plan. Telephone Encounter - Xuan Álvarez - 08/16/2017 1:28 PM EDT Received a call from patient - [phone], who is questioning the condition of his wound. He sent a [employer] email and also sent photos as part of that email. He is questioning infection? States it is red around the wound documented in this encounter Plan of Treatment Upcoming Encounters Date Type Specialty Care Team Description 07/02/2022 Office Visit Neurology Candi Sanchez, POULTRY HANGER [facility] [address] [place], [place] [address] (Wo rk) documented as of this encounter Visit Diagnoses Not on filedocumented in this encounter Care Teams Code Enforcement Officer Relationship Specialty Start Date End Date Markus Ascencio MD PCP - General Internal Medicine 04/09/17 [address] [place] [address] documented as of this encounter
--- OUTSIDE RECORDS SUMMARY | 2022-06-11 16:20 | XMS_ITS | Encounter Summary ---
:1960 [place] [address] Care Team Providers Name Role Phone Unavailable Primary Care Provider Unavailable Encounter Details Date Type Department Care Team Description 09/28/2016 Hospital Encounter [facility] [place], Maegan Landeros MD Pain [facility] [place] [address] [place] [address] [phone] (Wo rk) Social History Tobacco Use Types Packs/Day Years Used Date Never Assessed Sex Assigned at Date Recorded Unknown 08/14/2021 2:22 PM EDT documented as of this encounter Plan of Treatment Upcoming Encounters Date Type Specialty Care Team Description 07/02/2022 Office Visit Neurology Candi Sanchez, CIGARETTE MAKER [facility] [place], [place] [address] (Wo rk) documented as of this encounter Procedures Procedure Name Priority Date/Time Associated Diagnosis Comme nts FILM LIBRARY Routine 09/28/2016 12:00 AM Pain Results for this STORAGE ONLY DX EDT procedure ar e in FOOT the results section. documented in this encounter Results Film Library- Storage Only DX Foot (09/28/2016 12:00 AM EDT) Specimen (Source) Anatomical Location Collection Method / Collectio n Time Received Time / Laterality Volume Narrative YASMANI LU - 12/18/2016 8:42 PM EST This exam is for storage only and is aut o-finalizing. Grabiel Burns MD IMG FILM LIBRARY ORDERABLES Performing Organization Address City/State/ZIP Code Phon e Number RAD DH [place] documented in this encounter Visit Diagnoses Diagnosis Pain Generalized pain documented in this encounter
--- OUTSIDE RECORDS SUMMARY | 2022-06-11 16:20 | XMS_ITS | Encounter Summary ---
:1960 Author Organization [facility] [place] [address] Care Team Providers Name Role Phone Markus Ascencio MD Primary Care Provider Encounter Details Date Type Department Care Team Description 04/23/2017 Telephone [place]edics at [facility] [place] [facility] Alan Avina MD [address] [address] [facility] [phone] [place], [place] [address] (Wo rk) Social History Tobacco Use Types [...] this encounter Miscellaneous Notes Telephone Encounter - Alan Avina PA - 04/23/2017 2:12 PM EDT Called and spoke with the patient in regards to his bilateral first MTP osteoarthritis. We discussedthe fusion type surgery, we discussed recovery afterwards. We discussed potential for Cartiva, implantable device which is showing some promising date. Patient will do some research in regards to this. His questions for Dr. Burns upon consultation for other fusion versus other first MTP osteoporosis treatments. Telephone Encounter - Annie Alejandra RMA - 04/23/2017 1:52 PM EDT Viet was seen today in 's clinic. He has many questions that he would like to go over with Jean Avina PA-C . He states he needs to get clarification From Jean. He did not want to go over them with anyone but Jean Avina PA-C. Viet can be reached at [phone]. documented in this encounter Plan of Treatment Upcoming Encounters Date Type Specialty Care Team Description 07/02/2022 Office Visit Neurology Candi Sanchez, YARD ENGINEER [facility] er [address] [place], [place] [address] (Wo rk) documented as of this encounter Visit Diagnoses Not on filedocumented in this encounter Care Teams Spinning Bath Patroller Relationship Specialty Start Date End Date Markus Ascencio MD PCP - General Internal Medicine 04/09/17 [address] [place] [address] documented as of this encounter
--- OUTSIDE RECORDS SUMMARY | 2022-06-11 16:20 | XMS_ITS | Encounter Summary ---
:1960 Author Organization [facility] [place] [address] Care Team Providers Name Role Phone Markus Ascencio MD Primary Care Provider Reason for Visit Reason Comments Coronary Artery Disease Consultation (Routine) - Closed Specialty Diagnoses / Procedures Referred By Contact Refer red To Contact Cardiology Diagnoses Atypical chest pain Markus Ascencio MD [facility] Cardiology 4a [address] [place] [address] [place] [address] Referral ID Status Reason Start Date Expiration Date Visits V isits Requested Authorized [id number] Closed Consult, 03/29/2017 03/29/2018 1 1 [facility] Encounter Details Date Type Department Care Team Description 04/09/2017 Office Visit [place]iology [place] [facility] Markus Hodges, Atypical chest pain; [facility] Atrial fibrillation, unspecified type; Drive [facility] Cardiomyopathy, [place] [address] CARDIOLOGY DEPT. [phone] [place], [place] [address] Social History Tobacco Use Types [...] Sign Reading Time Taken Comments Blood Pressure 130/80 04/09/2017 3:12 PM EDT Pulse 57 04/09/2017 3:12 PM EDT Temperature - - Respiratory Rate - - Oxygen Saturation 95% 04/09/2017 3:12 PM EDT room ai r Inhaled Oxygen Concentration - - Weight 72.6 kg (160 lb) 04/09/2017 3:12 PM EDT Height 182.9 cm (6') 04/09/2017 3:12 PM EDT Body Mass Index 21.7 04/09/2017 3:12 PM EDT documented in this encounter Progress Notes Musa Gallegos MD - 04/09/2017 3:20 PM EDT Images from the original note were not included. [facility] [place] [address] CARDIOLOGY OUTPATIENT NOTE PRIMARY CARE PROVIDER: Destiny Segura MD REFERRING PROVIDER: Markus Ascencio PROBLEM LIST: 1. Atypical chest pain Subjective: Patient ID: Viet Núñez is a 57 y.o. male with atypical chest pain and possible cardiomyopathy referred for evaluation. He has previously seen Dr. Luciano at [facility] in December 2016 for dyspnea attributed to deconditioning and more recently has undergone testing facilitated by Dr. Ascencio as outlined below. HPI The patient was in his usual state of health until approximately 2 weeks ago when he developed an episode of substernal aching chest pain occurring at rest and lasting for a period of approximately 2 hours. Due to concern for MS he presented to [facility] and apparently was ruled out for MS, although no medical notes or lab results are available for review. He then underwent an echo which revealed normal global and regional wall motion. A nuclear SPECT the following day apparently was negative for evidence of ischemia or infarct. However there seems to have been a finding on that study which led Dr. Ascencio to be concerned about cardiomyopathy, although neither the report nor the images are available forreview. The patient now presents for an opinion on management of this cardiomyopathy. The patient is an avid cross country skiier. He undergoes vigorous aerobic exercise nearly every day. He has no recurrence of chest pain since the single episode a couple of weeks ago. He has no orthopnea, PND, palpitations, syncope, near syncope. He has a history of symptomatic AF, but underwent ablation twice at [facility] in the remote past and has had no recurrence since that time. Review of Systems Constitution: Positive for malaise/fatigue. HENT: Negative for congestion. Cardiovascular: Positive for chest pain. Negative for claudication, dyspnea on exertion, irregular heartbeat, leg swelling, near-syncope, orthopnea, palpitations, paroxysmal nocturnal dyspnea and syncope. Respiratory: Negative for shortness of breath and sleep disturbances due to breathing. Hematologic/Lymphatic: Does not bruise/bleed easily. Musculoskeletal: Positive for arthritis. Gastrointestinal: Negative for change in bowel habit and heartburn. Psychiatric/Behavioral: Positive for depression. Family history: Family History Problem Relation Age of Onset ??? Cancer Mother Social history: Social History Social History ??? Marital status: Spouse name: N/A ??? Number of children: N/A ??? Years of education: N/A Occupational History ??? Not on file. Social History Main Topics ??? Smoking status: Never Smoker ??? Smokeless tobacco: Not on file ??? Alcohol use No ??? Drug use: No ??? Sexual activity: Not on file Other Topics Concern ??? Not on file Social History Narrative ??? No narrative on file MEDICATIONS: Current Outpatient Prescriptions Medication Sig Dispense Refill ??? diclofenac (VOLTAREN) 75 mg Tablet, Delayed Release (E.C.) Take 75 mg by mouth 2 times daily. No current facility-administered medications for this visit. Objective:There were no vitals taken for this visit. Physical Exam Constitutional: He is oriented to person, place, and time. He appears well- developed and well-nourished. No distress. HENT: Head: Normocephalic and atraumatic. Eyes: Conjunctivae and EOM are normal. No scleral icterus. Neck: Normal range of motion. Neck supple. Cardiovascular: Normal rate, regular rhythm, normal heart sounds and intact distal pulses. Exam reveals no gallop and no friction rub. No murmur heard. Pulmonary/Chest: Effort normal. He has no wheezes. He has no rales. Abdominal: Soft. Musculoskeletal: Normal range of motion. Neurological: He is alert and oriented to person, place, and time. Coordination normal. Skin: Skin is warm and dry. Psychiatric: He has a normal mood and affect. Labs No results found for this or any previous visit (from the past 72 hour(s)). Stress ECG 01/2017 ([place]) Echo 03/2017 [facility] Apparent MPI 03/2017 (actual report not available) Assessment and Plan: 1. Noncardiac chest pain with an apparently negative ischemia workup at [facility]. The history is reassuring in that he has had no recurrence of symptoms despite vigorous exercise The patient is offered thechance to further testing at [facility] to confirm the workup already performed at [facility]. However, he wouldprefer to forgo further testing unless absolutely necessary. Therefore we will work to obtain sourcedata from [facility] and will contact patient with our interpretation of the actual images in order to confirm negative findings. In the absence of any evidence of coronary disease, suggest expectant management with attention to primary prevention and treatment of any comorbid risk factors such as hypertensi on, diabetes, or dyslipidemia. 2. Normal left ventricular structure and function based on the echo report provided. There is no clinical evidence of cardiomyopathy by exam or by history. In the event that the echo images reveal evidence of cardiac dysfunction then will proceed with further evaluation. Dr. Gallegos will follow up by phone after further data are available with further in-person follow upon an as needed basis. Musa Gallegos MD Founder / Ceo Pager [phone] Markus Hodges MD - 04/09/2017 3:20 PM EDT I have discussed, reviewed and agree with the documented HPI, past medical history, social history, family history, ROS, medication history, Physical findings, Assessment and Plan of care. I have independently interviewed and examined the patient myself and have no additions to the history, physical, a ssessment or plan of care. documented in this encounter Plan of Treatment Upcoming Encounters Date Type Specialty Care Team Description 07/02/2022 Office Visit Neurology Candi Sanchez, BLOW MACHINE TENDER STARCH SPRAYING [facility] er [place], [place] [address] (Wo rk) documented as of this encounter Procedures Procedure Name Priority Date/Time Associated Diagnosis Comme nts EKG 12-LEAD Routine 04/09/2017 3:19 PM Atypical chest pain Re sults for this EDT procedure are i n the results section . documented in this encounter Results EKG 12 Lead (04/09/2017 3:19 PM EDT) Component Value Ref Range Test Analysis Performed Pathologis t Method Time At Signature Ventricular rate 57 BPM MUSE SYSTEM Atrial Rate 57 BPM MUSE SYSTEM P-R Interval 176 ms MUSE SYSTEM QRS Duration 100 ms MUSE SYSTEM Q-T Interval 454 ms MUSE SYSTEM QTC Calculated 441 ms MUSE SYSTEM (Bezet) Calculated P [place] 81 degrees MUSE SYSTEM Calculated R [place] 85 degrees MUSE SYSTEM Calculated T [place] 79 degrees MUSE SYSTEM INTERPRETATION Sinus bradycardia MUSE SY STEM Otherwise normal ECG No previous ECGs available Confirmed by MD Carmina, Gian ([id number]) on 04/09/2017 5:48:17 PM Specimen Anatomical Collection Method Collection Time Receive d Time (Source) Location / / Volume Laterality 04/09/2017 3:19 PM 7 5:48 EDT PM EDT Markus Hodges MD ECG ORDERABLES Performing Organization Address City/State/ZIP Code Phon e Number MUSE SYSTEM documented in this encounter Visit Diagnoses Diagnosis Atypical chest pain Other chest pain Atrial fibrillation, unspecified type Cardiomyopathy, unspecified type documented in this encounter Care Teams School Bus Aide Relationship Specialty Start Date End Date Markus Ascencio MD PCP - General Internal Medicine 04/09/17 [address] [place] [address] documented as of this encounter
--- OUTSIDE RECORDS SUMMARY | 2022-06-11 16:20 | XMS_ITS | Encounter Summary ---
:1960 Author Organization [facility] [place] [address] Care Team Providers Name Role Phone Markus Ascencio MD Primary Care Provider Encounter Details Date Type Department Care Team Description 06/26/2017 Telephone Care [place] [address] Social History Tobacco Use Types Packs/Day [...] this encounter Miscellaneous Notes Telephone Encounter - Ngoc Rosa - 06/26/2017 2:49 PM EDT I called the [place] advanced directive registry and requested that patient's advanced directive be faxed over so as to scan into his medical record here at [facility]. The person I spoke with said that it would be faxed over within the next 10 minutes. I requested confirmation from the care management barber instructor. documented in this encounter Plan of Treatment Upcoming Encounters Date Type Specialty Care Team Description 07/02/2022 Office Visit Neurology Candi Sanchez, PRINCIPAL DEVELOPER [facility] er [address] [place], [place] [address] (Wo rk) documented as of this encounter Visit Diagnoses Not on filedocumented in this encounter Care Teams Porcelain Enamel Repairer Relationship Specialty Start Date End Date Markus Ascencio MD PCP - General Internal Medicine 04/09/17 [address] [place] [address] documented as of this encounter
--- OUTSIDE RECORDS SUMMARY | 2022-06-11 16:20 | XMS_ITS | Encounter Summary ---
:1960 Author Organization [facility] [place] [address] Care Team Providers Name Role Phone Markus Ascencio MD Primary Care Provider Encounter Details Date Type Department Care Team Description 07/02/2017 Hospital Encounter [place] at [facility] Grant, Grabiel P, Bilateral foot pain [address] [facility] [address] [facility] [id number] [place] [phone] [place] [address] Social History Tobacco Use Types Packs/Day Years [...] Care Team Description 07/02/2022 Office Visit Neurology Sanchez Candi M, BIKE DESIGNER [facility] [address] [place], [place] [address] (Wo rk) documented as of this encounter Procedures Procedure Name Priority Date/Time Associated Diagnosis Comme nts XR FOOT MIN 3 VIEWS Routine 07/02/2017 1:46 PM Bilateral foot pain Results for this BILAT EDT procedure are i n the results [...] Diagnosis Bilateral foot pain Pain in limb documented in this encounter Care Teams Retail Interior Designer Relationship Specialty Start Date End Date Markus Ascencio MD PCP - General Internal Medicine 04/09/17 [address] [place] [address] documented as of this encounter
--- OUTSIDE RECORDS SUMMARY | 2022-06-11 16:20 | XMS_ITS | Encounter Summary ---
:1960 Author Organization [facility] [place] [address] Care Team Providers Name Role Phone Markus Ascencio MD Primary Care Provider Encounter Details Date Type Department Care Team Description 08/11/2017 Telephone Orthopaed[place] at [facility] Jh Araujo MD [facility] [place] [address] ORTHOPAEDIC SURGERY [phone] [place], [place] [address] (Wo rk) Social History Tobacco [...] this encounter Miscellaneous Notes Telephone Encounter - Jh Araujo MD - 08/11/2017 4:40 PM EDT Patient is 57 year-old male who underwent corrective procedure for hallux rigidus on 08/08/17. Patientcalled about getting his dressing sweaty and inquiring if it was ok to change the dressing. Informed the patient that after 72 hours it would be ok to change the dressing with sterile dressing supplies. documented in this encounter Plan of Treatment Upcoming Encounters Date Type Specialty Care Team Description 07/02/2022 Office Visit Neurology Candi Sanchez, CAR FILLER [facility] [place] [address] (Wo rk) documented as of this encounter Visit Diagnoses Not on filedocumented in this encounter Care Teams Electric Appliance Installer Relationship Specialty Start Date End Date Markus Ascencio MD PCP - General Internal Medicine 04/09/17 [address] [place] [address] documented as of this encounter
--- OUTSIDE RECORDS SUMMARY | 2022-06-11 16:20 | XMS_ITS | Encounter Summary ---
:1960 Author Organization [facility] [address] Care Team Providers Name Role Phone Markus Ascencio MD Primary Care Provider Encounter Details Date Type Department Care Team Description 07/29/2017 Orders Only Orth[facility]edics at [facility] Mirian Perry, [facility] [place] [address] DEPT OF ORTHOPAEDICS [phone] Social History Tobacco Use Types Packs/Day Years [...] Description 07/02/2022 Office Visit Neurology Candi Sanchez, CAMERA MAKER [facility] [address] [place], [place] [address] (Wo rk) documented as of this encounter Visit Diagnoses Not on filedocumented in this encounter Care Teams Automatic Maintainer Relationship Specialty Start Date End Date Markus Ascencio MD PCP - General Internal Medicine 04/09/17 [address] [place] [address] documented as of this encounter
--- OUTSIDE RECORDS SUMMARY | 2022-06-11 16:20 | XMS_ITS | Encounter Summary ---
:1960 Author Organization [facility] [place] [address] Care Team Providers Name Role Phone Markus Ascencio MD Primary Care Provider Encounter Details Date Type Department Care Team Description 08/08/2017 Orders Only [facility] Unknown [facility] [place] [address] Social History Tobacco Use Types Packs/Day [...] Description 07/02/2022 Office Visit Neurology Candi Sanchez, OFFICE HELPER CLERICAL [facility] [place] [address] (Wo rk) Pending Results Name Type Priority Associated Diagnoses Date/Ti me EKG 12 Lead ECG Routine 08/08/2017 6:47 AM EDT documented as of this encounter Procedures Procedure Name Priority Date/Time Associated Diagnosis Comme nts EKG 12-LEAD Routine 08/08/2017 6:47 AM EDT documented in this encounter Visit Diagnoses Not on filedocumented in this encounter Care Teams Political Cartoonist Relationship Specialty Start Date End Date Markus Ascencio MD PCP - General Internal Medicine 04/09/17 [address] [place] [address] documented as of this encounter
--- OUTSIDE RECORDS SUMMARY | 2022-06-11 16:20 | XMS_ITS | Encounter Summary ---
:1960 Author Organization [facility] [place] [address] Care Team Providers Name Role Phone Markus Ascencio MD Primary Care Provider Encounter Details Date Type Department Care Team Description 08/20/2017 Hospital En[place] [facility] [place], Grabiel Landeros, S/P Left cartiva for [address] [place] [address] Dr MD iqra mcpherson [facility] 08/08/2017 Dr. Ignacio [place] [phone] [place] [phone] [place] [address] Social History Tobacco Use Types Packs/Day Years [...] Care Team Description 07/02/2022 Office Visit Neurology Laura, Candi M, TREATING ENGINEER [facility] er [place] [address] (Wo rk) documented as of this encounter Procedures Procedure Name Priority Date/Time Associated Diagnosis Comme nts XR FOOT MIN 3 VIEWS Routine 08/20/2017 1:43 PM S/P Left cartiv a for Results for this LEFT EDT hallux rigidus procedure are in 08/08/2017 Dr. Burns the results section. documented in this encounter Results XR Foot Min 3 views Left (Generic) (08/20/2017 1:43 PM EDT) Anatomical Region Laterality Modality Foot Left Digital Radiography Specimen (Source) Anatomical Location Collection Method / Collectio n Time Received Time / Laterality Volume Impressions 08/20/2017 2:53 PM EDT Interval first MTP hallux rigidus correction surgery. Narrative 08/20/2017 2:53 PM EDT EXAMINATION: XR FOOT MIN 3 VIEWS LEFT (GENERIC) CLINICAL HISTORY: s/p left foot hallux r igidus correction TECHNIQUE: 3 views were obtained. COMPARISON: July 02, 2017. FINDINGS: Since the previous study patient has und ergone interval first MTP joint hallux rigidus correction surgery with osteophy te removal and placement of a implant across the joint. K wire has been remove d from the first ray since the intraoperative radiographs of August 08, 2017. No malalignment is seen. No other new acute bony abnormality is iden tified. Procedure Note Sam York MD - 08/20/2017 EXAMINATION: XR FOOT MIN 3 VIEWS LEFT (G ENERIC) CLINICAL HISTORY: s/p left foot hallux r igidus correction TECHNIQUE: 3 views were obtained. COMPARISON: July 02, 2017. FINDINGS: Since the previous study patient has und ergone interval first MTP joint hallux rigidus correction surgery with osteophy te removal and placement of a implant across the joint. K wire has been remove d from the first ray since the intraoperative radiographs of August 08, 2017. No malalignment is seen. No other new acute bony abnormality is iden tified. IMPRESSION Interval first MTP hallux rigidus correc tion surgery. Grabiel Burns MD IMG DX ORDERABLES documented in this encounter Visit Diagnoses Diagnosis S/P Left cartiva for hallux rigidus 2016 Dr. Burns documented in this encounter Care Teams Medical Front Desk Coordinator Relationship Specialty Start Date End Date Markus Ascencio MD PCP - General Internal Medicine 04/09/17 [address] [place] [address] documented as of this encounter
--- OUTSIDE RECORDS SUMMARY | 2022-06-11 16:20 | XMS_ITS | Encounter Summary ---
:1960 Author Organization [facility] [place] [address] Care Team Providers Name Role Phone Markus Ascencio MD Primary Care Provider Reason for Visit Reason Comments Bilateral Foot Pain Consultation (Routine) - Specialty Diagnoses / Procedures Referred By Contact Refer red To Contact Orthopaedics Diagnoses BILAT METATARSALGIA [facility] [place] Orthopaedics 3a Procedures mail [place], [place] [phone] Phone: Fax: Referral ID Status Reason Start Date Expiration Date Visits V isits Requested Authorized [id number] 11/27/2016 11/27/2017 1 1 Encounter Details Date Type Department Care Team Description 12/18/2016 Office Visit Orthopaedics at [facility] [place] Grabiel Burns MD Bilateral foot pain [facility] (Primary Dx) [facility] [place] [address] ORTHOPAEDIC [phone] SURGERY [place] [address] Social History Tobacco Use Types Packs/Day Years Used Date Never Smoker Alcohol Use Standard Drinks/Week Comments No 0 (1 standard drink = 0.6 oz pure alcoho l) Sex Assigned at Date Recorded Unknown 08/14/2021 2:22 PM EDT documented as of this encounter Last Filed Vital Signs Vital Sign Reading Time Taken Comments Blood Pressure 116/63 12/18/2016 8:05 AM EST Pulse 59 12/18/2016 8:05 AM EST Temperature - - Respiratory Rate - - Oxygen Saturation - - Inhaled Oxygen Concentration - - Weight 79.4 kg (175 lb) 12/18/2016 8:05 AM EST Height 182.9 cm (6') 12/18/2016 8:05 AM EST Body Mass Index 23.73 12/18/2016 8:05 AM EST documented in this encounter Progress Notes Alan Avina PA - 12/18/2016 8:00 AM EST Chief complaint: Bilateral foot pain History of present illness: Viet Mathis is a 56 y.o. year-old male who presents today for second opinion evaluation from [facility] for bilateral foot pain, which is diagnosis bilateral metatarsalgia. The patient explains his pain is been waxing and waning over the past 1 year, witha recent flare since this past Thanksgiving due to an increase in his skiing. The patient localizes the majority of symptoms to the dorsal aspect of the first MTP joint. He explains stiffness, a dull and achy pain about this area. The patient explains no redness or swelling, he denies history of gout.Patient is looking to get back to skiing pain-free. He has attempted a stiff soled shoe, he is attemp balbir diclofenac with mild relief, he is also attempted 1 cortisone shot. He explains the left foot isworse than the right foot. He explains good relief with his cortisone injection, as it helped him get through a hike. The patient denies any pain about the plantar aspect of his metatarsal heads, he denies any numbness and tingling radiating into his toes. The patient denies any history of type I, type 2 diabetes, heart attack, stroke, blood clot, he is a nonsmoker. Past medical history: Patient Active Problem List Diagnosis Date Noted ??? Bilateral foot pain 12/18/2016 History of blood clots or bleeding disorders: Denies Denies history of cardiac, lung, kidney, liver diease or diabetes Medications: ??? diclofenac (VOLTAREN) 75 mg Tablet, Delayed Release (E.C.) Allergies: No Known Allergies Social history: Social History Substance Use Topics ??? Smoking status: Never Smoker ??? Smokeless tobacco: Not on file ??? 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 Physical Exam: No Apparent distress Left foot exam: Skin is intact without erythema, edema, ecchymosis, or open wound. There is no evidence of podagra. There is tenderness to palpation of the dorsal aspect of the first MTP joint, there is also a palpable dorsal osteophyte. There is more tenderness dorsally as compared to medially or plantarly. There isno hallux valgus deformity. Great toe extension to 50??, flexion to 10??. Pain is reproduced during active, passive, resisted range of motion throughout flexion and extension of the great toe. Ankle motion is intact, 5/5 MMT in all planes. Negative metatarsal compression test. No Judie's click. PT/DPpulses 2+. Superficial peroneal, deep peroneal, sural, saphenous, and tibial nerves intact to touch. Right foot exam: Skin is intact without erythema, edema, ecchymosis, or open wound. There is no evidence of podagra. There is tenderness to palpation of the dorsal aspect of the first MTP joint, there is also a palpable dorsal osteophyte. There is more tenderness dorsally as compared to medially or plantarly. There isno hallux valgus deformity. Great toe extension to 60??, flexion to 20??. Pain is reproduced during active, passive, resisted range of motion throughout flexion and extension of the great toe. Ankle motion is intact, 5/5 MMT in all planes. Negative metatarsal compression test. No Judie's click. PT/DPpulses 2+. Superficial peroneal, deep peroneal, sural, saphenous, and tibial nerves intact to touch. Imaging: Personal review of the patient's imaging reveals: No images [place] [facility] [place] films today Assessment: 56 y.o. year-old male with bilateral hallux rigidus Plan: We discussed his clinical exam today, we will sent him for images to rule out hallux rigidus. We discussed causes of metatarsalgia, forefoot pain such as stress fracture of the metatarsal bones in the foot, Lacey's neuroma, as well as metatarsalgia. The patient denies pain about the plantar aspect of his forefoot, he denies any numbness and tingling which extends into his toes, unlikely any ofthese. The majority of his symptoms are over the dorsal aspect of his first MTP joint, correlating clinically there is a palpable dorsal osteophyte which is consistent with hallux rigidus in conjuncture with his limited great toe motion as well as painful great toe motion. We discussed treatment for this with anti-inflammatories, steel toe plate of the forefoot, steroid injections on a conservative basis. We discussed risks and benefits which include infection, bleeding, damage to nerves and vessels, increase in blood glucose, steroid flare. We discussed cheilectomy versus fusion. This patient was seen in conjuncture with Dr. Burns. Follow up: When necessary This plan was discussed with the patient and they are in agreement. All of the patient's questions were answered. The above dictation was made with voice recogonition software Right 1st MTP injection: A timeout was performed confirming the patient's name, date of , allergies, and procedure. Patient agrees to proceed after discussion of risks and benefits which include infection, continued pain,bleeding, damage to nerves and vessels, and steroid flare. The 1st MTP joint was palpated and the injection site was marked with the needle cap over the joint space. The injection site was cleaned withtopical betadine. Using sterile gloves, 2 cc's of 1% lidocaine with 1 mL of 40 mg triamcinolone was injected into the 1st MTP joint. No resistance was encountered advancing the needle or pushing the medication. No was seen upon aspiration. The patient tolerated the procedure well. The injection site was cleaned with sterile gauze and covered with a band-aid. Patient is instructed to monitor for fevers, chills, night sweats, injection site redness, swelling, warmth, and discharge. Patient understandsto call with problems. Left 1st MTP injection: A timeout was performed confirming the patient's name, date of , allergies, and procedure. Patient agrees to proceed after discussion of risks and benefits which include infection, continued pain,bleeding, damage to nerves and vessels, and steroid flare. The 1st MTP joint was palpated and the injection site was marked with the needle cap over the joint space. The injection site was cleaned withtopical betadine. Using sterile gloves, 2 cc's of 1% lidocaine with 1 mL of 40 mg triamcinolone was injected into the 1st MTP joint. No resistance was encountered advancing the needle or pushing the medication. No was seen upon aspiration. The patient tolerated the procedure well. The injection site was cleaned with sterile gauze and covered with a band-aid. Patient is instructed to monitor for fevers, chills, night sweats, injection site redness, swelling, warmth, and discharge. Patient understandsto call with problems. Patient had his right great toe injected first. He became sweaty, white in the face, and his pulse became very low. Likely vasovagal response. Patient remained alert and oriented x 3, patient was reclined to the supine position, he eventually rebounded from this and felt better. I asked the patient how he was feeling, and if he wanted to go through with injecting the other side. He did want to proceed with the other side. Patient was given crackers, juice. We then completed an uneventful left great toe injection. He did not have this reaction. Patient explains this is very common, and that he has had this happen with previous injections, and even while looking at an x-ray. Patient was brought to the standing position without any signs of pre-syncope, and took his time before leaving the clinic. 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 Please evaluate the 1st MTP joint. TECHNIQUE: 3 views of the feet were acqu ired bilaterally with the patient weightbearing COMPARISON: None FINDINGS: At the first metatarsal-phalangeal joint s bilaterally joint space narrowing is associated with subchondral sclerosis ma rginal osteophyte formation subchondral cysts and soft tissue swelling. No acute injury is identified. At the ankle no effusion is identified t linwood there are small osteophytes bilaterally. No Achilles pathology is identified. Procedure Note Blue Brown MD - 12/18/2016Forma tting of this note might be different from the original. EXAMINATION: XR FOOT MIN 3 VIEWS BILAT ( GENERIC) CLINICAL HISTORY: Bilateral foot films, weightbearing views. Please evaluate the 1st MTP joint. TECHNIQUE: 3 views of the feet were acqu ired bilaterally with the patient weightbearing COMPARISON: None FINDINGS: At the first metatarsal-phalangeal joint s bilaterally joint space narrowing is associated with subchondral sclerosis ma rginal osteophyte formation subchondral cysts and soft tissue swelling. No acute injury is identified. At the ankle no effusion is identified t linwood there are small osteophytes bilaterally. No Achilles pathology is identified. IMPRESSION Osteoarthritis of the first metatarsal-p halangeal joints bilaterally Grabiel Burns MD IMG DX ORDERABLES documented in this encounter Visit Diagnoses Diagnosis Bilateral foot pain - Primary Pain in limb Bilateral foot pain Pain in limb documented in this encounter Administered Medications Inactive Administered Medications - up to 3 most recent administrations Medication Order MAR Action Action Date Dose Rate Site lidocaine (XYLOCAINE) 10 mg/mL (1 Given 12/18/2016 9:44 AM EST 2 0 mg %) injection 20 mg 20 mg, Intra-articular, ONCE, 1 dose, On Sat12/18/16 at 1000, Routine lidocaine (XYLOCAINE) 10 mg/mL (1 %) injection Given 0 12/18/2016 9:47 AM EST 20 mg 20 mg 20 mg, Intra-articular, ONCE, 1 dose, On Sat12/18/16 at 1015, Routine triamcinolone acetonide (KENALOG-40) injection Given 0 12/18/2016 9:44 AM EST 40 mg 40 mg 40 mg, Intra-articular, ONCE, 1 dose, On Sat12/18/16 at 1000, Routine triamcinolone acetonide (KENALOG-40) injection Given 0 12/18/2016 9:47 AM EST 40 mg 40 mg 40 mg, Intra-articular, ONCE, 1 dose, On Sat12/18/16 at 1015, Routine documented in this encounter Care Teams Equipment Tech Relationship Specialty Start Date End Date Markus Ascencio MD PCP - General Internal Medicine 12/18/16 03/28/17 [address] [place] [address] documented as of this encounter
--- OUTSIDE RECORDS SUMMARY | 2022-06-11 16:20 | XMS_ITS | Encounter Summary ---
:1960 Author Organization [facility] [place] [address] Care Team Providers Name Role Phone Markus Ascencio MD Primary Care Provider Reason for Visit Reason Onset Date Comments Appointment 07/02/2017 Encounter Details Date Type Department Care Team Description 07/02/2017 Telephone [place] [facility] [place] Burns MD Appointment [facility] [place] [address] ORTHOPAEDIC SURGERY [phone] [place] [id number] (Wo rk) Social History Tobacco Use Types [...] this encounter Miscellaneous Notes Telephone Encounter - Destiny Cook - 07/04/2017 9:30 AM EDT Left a message to call and schedule surgery w/Dr Burns and Jose. Telephone Encounter - Xuan Álvarez - 07/02/2017 4:42 PM EDT Received a call from patient who would like to schedule foot surgery with Dr. Burns and Dr. Garcia documented in this encounter Plan of Treatment Upcoming Encounters Date Type Specialty Care Team Description 07/02/2022 Office Visit Neurology Candi Sanchez, WIRE WEB WORKER [facility] er CAROLINE Mal[place] 0[address] (Wo rk) documented as of this encounter Visit Diagnoses Not on filedocumented in this encounter Care Teams Mental Health Director Relationship Specialty Start Date End Date Markus Ascencio MD PCP - General Internal Medicine 04/09/17 [address] [place] [address] documented as of this encounter
--- OUTSIDE RECORDS SUMMARY | 2022-06-11 16:23 | XMS_ITS | Encounter Summary ---
:1960 Author Organization [facility] Address [address] [place] [address] Care Team Providers Name Role Phone Unknown, Provider Primary Care Provider Encounter Details Date Type Department Care Team Description 05/27/2020 Lab Requisition [facility] Outr Resulting Lab, Pathology & Laboratory Provider [facility] [address] [place] [address] Social History Tobacco Use Types Packs/Day Years Used Date Never Assessed Sex Assigned at Date Recorded Not on file documented as of this encounter Plan of Treatment Not on filedocumented as of this encounter Procedures Procedure Name Priority Date/Time Associated Diagnosis Comme nts HOLD SST Today 05/26/2020 10:15 Results for this EDT procedure are i n the results section. LYME AB Today 05/26/2020 10:15 Results for this EDT procedure are i n the results section. ANTI NUCLEAR AB Today 05/26/2020 10:15 Results for this (ANN), IFA EDT procedure are i n the results section. documented in this encounter Results HOLD SST (05/26/2020 10:15 EDT) Pathologist Sig nature Hold Hold [facility] Specimen Blood - Venous blood (substance) Performing Organization Address [facility]/ZIP Code Phon e Number [facility] [address] [place] [address] SERVICES LYME AB (05/26/2020 10:15 EDT) Pathologist Sig nature Lyme Ab Negative Negative [facility] Comment: LABORATORY SERVICES New 3rd generation assay in use 05/11/2020 Specimen Blood - Venous blood (substance) Performing Organization Address City/[facility]/ZIP Code Phon e Number [facility] [address] [place] [address] SERVICES ANTI NUCLEAR AB (ANN), IFA (05/26/2020 10:15 EDT) Pathologist Sig nature ANN Interpretation Negative Negative [facility] Specimen Blood - Venous blood (substance) Narrative [facility] - 05/30/2020 16:42 EDT Results were obtained with the [employer] NOV A Lite HEp-2 ANN Kit by indirect immunofluorescence. 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
--- OUTSIDE RECORDS SUMMARY | 2022-06-11 16:23 | XMS_ITS | Clinical Summary ---
:1960 Author Organization [facility] Address [address] [place] [address] Care Team Providers Name Role Phone Unknown, Provider Primary Care Provider Medications Medication Sig Dispensed Refills Start Date End Date Status diclofenac (CATAFLAM) 50 1 tab(s) 0 Active mg tablet orally PRN ascorbic acid, vitamin C, 1 tab(s) 0 Active (VITAMIN C) 500 mg tablet orally once a day methylPREDNISolone (MEDROL USE UTD ON THE 0 05/10/20 20 Active DOSEPACK) 4 mg tablet PACKAGE clonazePAM (KLONOPIN) 1 mg Take 0.5-1 60 Tab 0 05/23/2020 Active tablet Tabs by mouth 2 times daily as needed (Anxiety). Daily Max: 2 mg Social History Tobacco Use Types Packs/Day Years Used Date Never Assessed Sex Assigned at Date Recorded Not on file Plan of Treatment Health Maintenance Due Date Last Done Comments COVID-19 Vaccine (1) 1972 Insurance Payer Benefit Plan Subscriber ID Effective Phone Address Typ e / Group Dates MEDICAID ACO MEDICAID ACO [id number] 2021-Pres [phone] [address] [place] [address] [facility] [id number] [place] Marie Personal/Family Self 1960 [address] (Home) [place] [address] [place] Marie Personal/Family Self 1960 [address] (Home) [place] [address] Viet Marie Personal/Family Self 1960 [address]Home) [place] [address] FrankViet Personal/Family Self 1960 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
--- OUTSIDE RECORDS SUMMARY | 2022-06-11 16:23 | XMS_ITS | Encounter Summary ---
:1960 Author Organization [facility] Address [address] [place] [address] Care Team Providers Name Role Phone Unknown, Provider Primary Care Provider Reason for Visit Reason Onset Date Comments Medications Refill 05/20/2020 clonazepam 1mg Medications Refill 05/20/2020 Medications Refill 05/23/2020 Encounter Details Date Type Department Care Team Description 05/20/[address] [facility] Medicat ions Refill [facility] Family Psychiat MD Alfonso (clonazepam 1mg); [address] [facility] [address] [facility] Medications Refill; [place] [address] [place] Medications Refill [phone] Social History Tobacco Use Types Packs/Day Years Used Date Never Assessed Sex Assigned at Date Recorded Not on file documented as of this encounter Ordered Prescriptions Prescription Sig Dispensed Refills Start Date End Date clonazePAM (KLONOPIN) 1 mg Take 0.5-1 Tabs by 60 Tab 0 0 05/23/2020 tablet mouth 2 times daily as needed (Anxiety). Daily Max: 2 mg documented in this encounter Miscellaneous Notes Telephone Encounter - John Brock MD - 05/26/2020 1151 EDT If his PCP sent one, then we should cancel the one that I sent with the pharmacy. I will route this note to Elena to ask her to do that. elephone Encounter - Mayra Slater - 05/26/2020 1144 EDT Susie () called to cancel appt 05/30/20 - he saw his pcp today and received a script for the clonazepam - should be cancel script that you sent? elephone Encounter - John Brock MD - 05/23/2020 1529 EDT Electronic prescription sent. elephone Encounter - Mayra Slater - 05/23/2020 1523 EDT appt 05/30/20 Telephone Encounter - Mayra Slater - 05/23/2020 1523 EDT appt 05/30/20 Telephone Encounter - John Brock MD - 05/23/2020 0715 EDT Please schedule for an appointment. Once scheduled I can provide an interim refill. Telephone Encounter - Elena Nettles RN - 05/20/2020 1124 EDT Last OV 09/01/2018 No future visits scheduled Clonazepam 1 mg Take 1 tab 2 times daily as needed Per [facility] Filled prescription one time 07/01/2018 Im thinking he needs an appointment elephone Encounter - Mayra Slater - 05/20/2020 1023 EDT Clonazepam 1mg documented in this encounter Plan of Treatment Not on filedocumented as of this encounter Visit Diagnoses Not on filedocumented in this encounter Discontinued Medications Medication Sig Discontinue Reason Start Date End Date clonazePAM (KLONOPIN) 1 1/2-1 tab(s) orally Reorder 05/23/2020 mg tablet BID PRN documented as of this encounter Historical Medications This list may reflect changes made after this encounter. Medication Sig Dispensed Refills Start Date End Date methylPREDNISolone (MEDROL USE UTD ON THE 0 05/10 DOSEPACK) 4 mg tablet PACKAGE ascorbic acid, vitamin C, 1 tab(s) orally 0 (VITAMIN C) 500 mg tablet once a day diclofenac (CATAFLAM) 50 mg 1 tab(s) orally 0 tablet PRN clonazePAM (KLONOPIN) 1 mg 1/2-1 tab(s) 0 05/23/2020 tablet orally BID PRN added in this encounter Care Teams Direct Support Professional Caregiver Relationship Specialty Start Date End Date Unknown, Provider, PCP - General 11/15/15 documented as of this encounter
--- OUTSIDE RECORDS SUMMARY | 2022-06-11 16:23 | XMS_ITS | Encounter Summary ---
:1960 Author Organization [facility] Address [address] [place] [address] Care Team Providers Name Role Phone Unknown, Provider Primary Care Provider Encounter Details Date Type Department Care Team Description 07/12/2020 Lab Requisition [facility] Outr Resulting Lab, Pathology & Laboratory Provider [facility] [address] [place] [address] Social History Tobacco Use Types Packs/Day Years Used Date Never Assessed Sex Assigned at Date Recorded Not on file documented as of this encounter Plan of Treatment Not on filedocumented as of this encounter Procedures Procedure Name Priority Date/Time Associated Diagnosis Comme nts LYME AB Routine 07/11/2020 12:00 EDT Results for this procedure are i n the results section . documented in this encounter Results LYME AB (07/11/2020 12:00 EDT) Pathologist Sig nature Lyme Ab NegativeComment: New Negative [facility] 3rd generation assay LABORATORY SERVICES in use 05/11/2020 Specimen Blood - Venous blood (substance) Performing Organization Address City/State/ZIP Code Phon e Number [facility] [address] [place] [address] SERVICES documented in this encounter Visit Diagnoses Not on filedocumented in this encounter Care Teams Soft Metals Engraver Hand Relationship Specialty Start Date End Date Unknown, Provider, PCP - General 11/15/15 documented as of this encounter
--- OUTSIDE RECORDS SUMMARY | 2022-06-11 16:23 | XMS_ITS | Encounter Summary ---
:1960 Author Organization [facility] Address [address] [place] [address] Care Team Providers Name Role Phone Unknown, Provider Primary Care Provider Encounter Details Date Type Department Care Team Description 06/09/2020 Lab Requisition [facility] Outr Resulting Lab, Pathology & Laboratory Provider [facility] [address] [place] [address] Social History Tobacco Use Types Packs/Day Years Used Date Never Assessed Sex Assigned at Date Recorded Not on file documented as of this encounter Plan of Treatment Not on filedocumented as of this encounter Procedures Procedure Name Priority Date/Time Associated Comments Diagnosis CORTISOL, STIMULATION Routine 06/09/2020 8:30 Res ults for this 60 MINUTES EDT procedure are i n the results section. documented in this encounter Results CORTISOL, STIMULATION 60 MINUTES (06/09/2020 8:30 EDT) Cortisol 24 See Note [facility] MEDICAL Stimulation, 60 Comment: ug/dL [facility] min. SERVICES NOTE: Expected Ranges for ACTH (Cortisol) Stimulation Test: Baseline: ??4 - 23 ug/dL Peak Concentrations at 30 - 60 minutes Minimal response: ??> 7ug/dL increment over baseline The results of this assay ca n be falsley elevated due to the consumption of Biotin. Specimen Blood - Venous blood (substance) Performing Organization Address City/State/ZIP Code Phon e Number [facility] [address] [place] [address] SERVICES documented in this encounter Visit Diagnoses Not on filedocumented in this encounter Care Teams E Business Project Manager Relationship Specialty Start Date End Date Unknown, Provider, PCP - General 11/15/15 documented as of this encounter
== END 2022-06-11 16:15 | disposition home or self-care (01) ==
LOC: NCHCN 16:14
PROVIDERS: PCP Internal Medicine; Visit Provider Family Medicine
DX: E78.5 Hyperlipidemia, unspecified (principal)
CPT/HCPCS: 80061; 84450; 84460

== ENCOUNTER → 2025-09-15 13:32 | Outpatient (BNVA) | payer MEDICARE, SELFPAY | PROVIDERS: PCP Family Medicine; Referring Provider Family Medicine; Visit Provider Physical Therapy Assistant | DX: S60.453A Superficial foreign body of left middle finger, initial encounter (principal); X58.XXXA Exposure to other specified factors, initial encounter | CPT/HCPCS: 99213 ==